=== PATIENT | female | born 1945 | race Caucasian/White ===

== ENCOUNTER 2016-07-11 18:56 | Emergency (ER) | payer OTHER ==
[~2016-07-11] VITALS: Ht 160 cm; Wt 79.0 kg
[2016-07-11 19:15] VITALS: TEMP 37; Ht 160 cm; Wt 79.0 kg
[2016-07-11] MEDS ORDERED: ESCI1TAB10 PO (19:26)
[2016-07-11] MEDS ORDERED: LEVO25TA PO (19:26)
[2016-07-11] MEDS ORDERED: ACET-1256 PO (19:26)
--- NOTE | 2016-07-11 19:54 | DIAGNOSTIC IMAGING REPORT ---
RIGHT ANKLE MIN 3 VIEWS ROUTINE CLINICAL HISTORY: Right ankle pain status post trauma COMPARISON: None. DISCUSSION: There is an avulsion fracture the lateral malleolar tip. An additional avulsion arising from the lateral aspect of the talus cannot be excluded. There is a corticated ossicle adjacent the medial malleolar tip which is felt to be old. There is prominent soft tissue swelling. The ankle mortise appears intact. There is calcaneal spurring. IMPRESSION: 1. Acute avulsion fracture arising from the lateral malleolar tip 2. Prominent soft tissue swelling 3. No evidence of ankle mortise disruption Electronically signed by: Lowell Carrillo M.D. 07/11/2016 7:53 PM Dictated Date/Time: 07/11/2016 7:51 PM
--- NOTE | 2016-07-11 19:55 | DIAGNOSTIC IMAGING REPORT ---
RIGHT TIBIA/FIBULA 2 VIEWS ROUTINE CLINICAL HISTORY: Right lower leg pain status post trauma COMPARISON: None. DISCUSSION: There is distal soft tissue swelling. There is an avulsion fracture arising from the lateral malleolar tip. There is an old corticated ossicle at the level of the medial malleolus. No fractures the proximal tibia or fibula are visualized. IMPRESSION: Avulsion fracture arising from the lateral malleolar tip. Electronically signed by: Lowell Carrillo M.D. 07/11/2016 7:54 PM Dictated Date/Time: 07/11/2016 7:53 PM
--- NOTE | 2016-07-11 20:23 | EMERGENCY ROOM VISIT NOTE ---
ED Visit Note First contact with patient: 19:21 Patient was seen by our PA/PROPERTY MAINTENANCE TECHNICIAN. I was involved in the patient's care and did evaluate the patient myself. I was involved in the care throughout the ER stay. The patient has a distal lateral malleolus fracture, she has been immobilized and will be followed up by orthopedics.
[2016-07-11 21:15] VITALS: BP 132/67; PULSE 60; O2SAT 98
--- NOTE | 2016-07-17 21:04 | EMERGENCY ROOM VISIT NOTE ---
ED Visit Note First contact with patient: 19:21 CHIEF COMPLAINT: Right ankle pain. HISTORY OF PRESENT ILLNESS: Ms. Iverson is a 70-year old white female who is brought via wheelchair into the ED accompanied by her daughter complaining of right ankle pain. She reports approximately 8 hours ago she was cleaning windows at home and she was reportedly standing on a ladder and partly standing on her washing machine. When she was transitioning back to the latter she lost her balance on the latter and fell off injuring her right lower leg and ankle. She reports at the time of the fall she did not strike her head or have loss of consciousness and since the fall she is not having any signs of head injury. She is currently complaining of constant achy and sharp pain over the distal aspect of the fibula. She rates the pain a 4/10. Pain is radiating proximally to the mid aspect of the fibula. Pain increases with weightbearing, ambulation, plantar flexion and inversion. She has not identified any alleviating factors related to the pain. She has not treated the pain prior to arrival at the hospital. She denies any associated hip pain, knee pain, leg weakness/numbness/ tingling, foot pain, toe pain, previous significant ankle or foot injury/ surgeries. REVIEW OF SYSTEMS: As noted above in History of Present Illness. PAST MEDICAL HISTORY: Hypothyroidism, status post cholecystectomy. CURRENT MEDICATIONS: Lexapro, Synthroid and Tylenol. ALLERGIES TO MEDICATIONS: Sulfa. SOCIAL HISTORY: Patient is not employed; she lives alone and feels safe in her home environment; she admits to tobacco use and denies alcohol use. PHYSICAL EXAM: Vital Signs: Date Time Temp Pulse Resp B/P Pulse Ox O2 Delivery O2 Flow Rate FiO2 07/11/16 21:15 60 132/67 98 07/11/16 19:15 37.0 57 18 107/66 96 Room Air General: 40 year old female in mild distress due to pain, nontoxic-appearing, afebrile and hemodynamically stable. Neurological: Awake, alert, oriented to person place and time. Answering questions appropriately and following commands. Skin: Warm dry and pink. No soft tissue injuries. Right Lower Extremity: No gross ana maria deformities. Mild tenderness over the mid tibial area without bony deformity, bony crepitus, swelling or ecchymosis. Moderate tenderness over the distal fibula and the ligamentous structures anterior, inferior and posterior to the lateral malleolus. Do not appreciate any bony deformity or crepitus. There is moderate swelling in this area but no ecchymosis. Full range of motion in plantar flexion and dorsiflexion of the ankle. Full range of motion in flexion and extension of the knee. No tenderness over the knee and hip. No appreciated laxity with ligamentous testing of the ankle. Throughout the foot the skin is pink and warm with brisk capillary refill. Able to distinguish light sensations through all dermatomes of the foot. ED COURSE: Patient is assessed as noted above. Right Ankle X-Rays: Were read by myself and the radiologist showing acute avulsion fracture arising from the lateral malleolus tip with soft tissue swelling. Right Lower Leg X-Rays: Were read by myself and the same fracture was noted but no proximal tibia or fibula fracture. Patient is given ice for pain, swelling and comfort; patient was offered medications and refused. Patient is placed in a Ortho-Glass ankle stirrup splint and is instructed on crutch use. Patient is educated about her condition and instructed on her treatment plan; she verbalizes understanding and agreement with the our plan. CLINICAL IMPRESSION: Right distal fibular avulsion fracture. DISPOSITION: Patient is discharged to home in stable condition accompanied by her daughter; prior to departure she was reassessed and subjectively reported she was pain-free. PLAN: Comfort measures were discussed with the pain Patient was encouraged to follow-up with orthopedic physician for definitive care and treatment. Patient was encouraged to return emergency department as needed for increasing pain, increasing swelling, leg weakness/numbness/tingling or any new/concerning symptoms.
== END 2016-07-11 21:16 | disposition home or self-care (01) ==
LOC: C.EDB 18:57 → C.EDD 21:16
DX: S82.61XA Displaced fracture of lateral malleolus of right fibula, initial encounter for closed fracture (principal); E03.9 Hypothyroidism, unspecified; F17.200 Nicotine dependence, unspecified, uncomplicated; Z79.899 Other long term (current) drug therapy; W11.XXXA Fall on and from ladder, initial encounter; Y93.E9 Activity, other interior property and clothing maintenance; Y92.009 Unspecified place in unspecified non-institutional (private) residence as the place of occurrence of the external cause; Y99.8 Other external cause status

== ENCOUNTER 2016-12-06 13:28 | Emergency (ER) | payer OTHER ==
[~2016-12-06] VITALS: Ht 160 cm; Wt 80.0 kg
[~2016-12-06 13:28] MED LIST: ACET-1256 PO; ESCI1TAB10 PO; LEVO25TA PO
[2016-12-06 13:30] VITALS: TEMP 36.6; Ht 160 cm; Wt 80.0 kg
--- NOTE | 2016-12-06 14:09 | EMERGENCY ROOM VISIT NOTE ---
History Report prepared by Miroslava: Simba Sanders Under the Supervision of: Dr. Martha Wylie D.O. First contact with patient: 13:51 Chief Complaint: ABDOMINAL PAIN Stated Complaint: LOWER ABDOMINAL PAIN History of Present Illness The patient is a 71 year old female who presents to the Emergency Room with complaints of intermittent lower abdominal pain that started yesterday morning. This pain is worse on the left side. Nothing makes it better or worse. Each episode of pain lasts about 20 seconds. The patient denies feeling a similar pain in the past. Associated symptoms include abdominal bloating. The patient denies recent travel, alcohol/ drug use, or medication changes. She also denies a past colonoscopy. The patient adds that her PCP was concerned for diverticulitis. She denies fevers, chills, nausea, vomiting, or any additional associated symptoms. Source of History: patient Onset: Yesterday morning Position: abdomen Timing: intermittent Modifying Factors (Worsening): other (None) Modifying Factors (Relieving): other (None) Associated Symptoms: No fevers, No chills, No nausea, No vomiting Note: Abdominal bloating Review of Systems See HPI for pertinent positives & negatives. A total of 10 systems reviewed and were otherwise negative. Past Medical & Surgical Surgical Problems: (1) Hx of cholecystectomy Family History FH: hypertension FH: seizures FH: suicide FHx: cancer Social History Smoking Status: Current Every Day Smoker Alcohol Use: none Drug Use: none Marital Status: single Housing Status: lives alone Occupation Status: retired Current/Historical Medications Scheduled Ciprofloxacin Hcl (Cipro), 500 MG PO BID Escitalopram Oxalate (Lexapro), 20 MG PO DAILY Levothyroxine Sodium (Synthroid), 25 MCG PO DAILY Metronidazole (Flagyl), 500 MG PO TID Promethazine (Phenergan ), 1-2 TABS PO TID Scheduled PRN Acetaminophen (Tylenol), 1 TAB PO Q8 PRN for Pain Allergies Coded Allergies: Sulfa Antibiotics (Verified Allergy, Unknown, UNKNOWN, 12/06/16) Physical Exam Vital Signs Date Time Temp Pulse Resp B/P (MAP) Pulse Ox O2 Delivery O2 Flow Rate FiO2 12/06/16 15:52 56 16 107/84 93 Room Air 12/06/16 14:45 52 16 141/70 96 Room Air 12/06/16 13:30 36.6 74 18 146/78 95 Room Air Physical Exam GENERAL: alert, well appearing, well nourished, no distress, non-toxic EYE EXAM: normal conjunctiva, PERRL and EOM's grossly intact OROPHARYNX: no exudate, no erythema, lips, buccal mucosa, and tongue normal and mucous membranes are moist NECK: supple, no nuchal rigidity, no adenopathy, non-tender LUNGS: Clear to auscultation. Normal chest wall mechanics HEART: no murmurs, S1 normal and S2 normal ABDOMEN: Left lower quadrant tenderness. Abdomen soft, normo-active bowel sounds , no masses, no rebound or guarding. BACK: Back is symmetrical on inspection and there is no deformity, no midline tenderness, no CVA tenderness. SKIN: no rashes and no bruising UPPER EXTREMITIES: upper extremities are grossly normal. LOWER EXTREMITIES: No pitting edema. NEURO EXAM: Normal sensorium, cranial nerves II-XII grossly intact, normal speech, no gross weakness of arms, no gross weakness of legs. No drift. Medical Decision & Procedures ER Provider Diagnostic Interpretation: Radiology results have been interpreted by the radiologist and reviewed by me. ABD/PELVIS NO IV OR ORAL CONT CT DOSE: 483.66 mGy.cm HISTORY: Pain ll. Pain TECHNIQUE: Multiaxial CT images of the abdomen and pelvis were performed without contrast. A dose lowering technique was utilized adhering to the principles of ALARA. COMPARISON STUDY: None. FINDINGS: Lung bases are clear. Liver spleen and pancreas are unremarkable in overall configuration. Prior cholecystectomy. Kidneys are negative for hydronephrosis or significant calcification. Mild nonobstructive small bowel ileus. Significant wall thickening of the proximal to mid sigmoid colon and to a lesser extent distal descending colon. Mild/moderate pericolonic infiltrative change. No evidence for abscess collection or obstruction. Bladder is midline. Small fat-containing bilateral inguinal hernias. IMPRESSION: 1. Acute sigmoid and distal descending colonic diverticulitis. 2. No evidence for abscess collection or obstructive change. 3. Moderate pericolonic infiltrative change. The above report was generated using voice recognition software. It may contain grammatical, syntax or spelling errors. Electronically signed by: Con Parry M.D. 12/06/2016 3:05 PM Dictated Date/Time: 12/06/2016 3:02 PM Laboratory Results 12/06/16 14:30 Red Blood Count 4.46, Mean Corpuscular Volume 92.4, Mean Corpuscular Hemoglobin 33.0, Mean Corpuscular Hemoglobin Concent 35.7, Mean Platelet Volume 9.7, Neutrophils (%) (Auto) 71.9, Lymphocytes (%) (Auto) 16.8, Monocytes (%) (Auto) 10.4, Eosinophils (%) (Auto) 0.4, Basophils (%) (Auto) 0.4, Neutrophils # (Auto ) 6.83, Lymphocytes # (Auto) 1.60, Monocytes # (Auto) 0.99, Eosinophils # (Auto ) 0.04, Basophils # (Auto) 0.04 12/06/16 14:30 Test 12/06/16 14:30 12/06/16 14:45 White Blood Count 9.51 K/uL (4.8-10.8) Red Blood Count 4.46 M/uL (4.2-5.4) Hemoglobin 14.7 g/dL (12.0-16.0) Hematocrit 41.2 % (37-47) Mean Corpuscular Volume 92.4 fL (80-100) Mean Corpuscular Hemoglobin 33.0 pg (25-34) Mean Corpuscular Hemoglobin Concent 35.7 g/dl (32-36) Platelet Count 207 K/uL (130-400) Mean Platelet Volume 9.7 fL (7.4-10.4) Neutrophils (%) (Auto) 71.9 % Lymphocytes (%) (Auto) 16.8 % Monocytes (%) (Auto) 10.4 % Eosinophils (%) (Auto) 0.4 % Basophils (%) (Auto) 0.4 % Neutrophils # (Auto) 6.83 K/uL (1.4-6.5) Lymphocytes # (Auto) 1.60 K/uL (1.2-3.4) Monocytes # (Auto) 0.99 K/uL (0.11-0.59) Eosinophils # (Auto) 0.04 K/uL (0-0.5) Basophils # (Auto) 0.04 K/uL (0-0.2) RDW Standard Deviation 45.5 fL (36.4-46.3) RDW Coefficient of Variation 13.4 % (11.5-14.5) Immature Granulocyte % (Auto) 0.1 % Immature Granulocyte # (Auto) 0.01 K/uL (0.00-0.02) Prothrombin Time 10.5 SECONDS (9.0-12.0) Prothromb Time International Ratio 1.0 (0.9-1.1) Anion Gap 5.0 mmol/L (3-11) Est Creatinine Clear Calc Drug Dose 80.7 ml/min Estimated GFR () 104.1 Estimated GFR (Non- 89.8 BUN/Creatinine Ratio 11.8 (10-20) Lactic Acid Level 1.1 mmol/L (0.4-2.0) Calcium Level 9.2 mg/dl (8.5-10.1) Total Bilirubin 0.7 mg/dl (0.2-1) Aspartate Amino Transf (AST/SGOT) 12 U/L (15-37) Alanine Aminotransferase (ALT/SGPT) 14 U/L (12-78) Alkaline Phosphatase 94 U/L (45-117) Total Protein 7.1 gm/dl (6.4-8.2) Albumin 3.5 gm/dl (3.4-5.0) Globulin 3.6 gm/dl (2.5-4.0) Albumin/Globulin Ratio 1.0 (0.9-2) Lipase 104 U/L (73-393) Urine Color YELLOW Urine Appearance CLEAR (CLEAR) Urine pH 5.5 (4.5-7.5) Urine Specific [place] 1.017 (1.000-1.030) Urine Protein NEG (NEG) Urine Glucose (UA) NEG (NEG) Urine Ketones 1+ (NEG) Urine Occult Blood 2+ (NEG) Urine Nitrite NEG (NEG) Urine Bilirubin NEG (NEG) Urine Urobilinogen NEG (NEG) Urine Leukocyte Esterase NEG (NEG) Urine WBC (Auto) 1-5 /hpf (0-5) Urine RBC (Auto) 0-4 /hpf (0-4) Urine Hyaline Casts (Auto) 0 /lpf (0-5) Urine Epithelial Cells (Auto) 20-30 /lpf (0-5) Urine Bacteria (Auto) NEG (NEG) Laboratory results per my review. Medications Administered Medications (Trade) Dose Ordered Sig/Ashley Route Start Time Stop Time Status Last Admin Dose Admin Ciprofloxacin (Cipro Tab) 500 mg NOW STAT PO 12/06/16 15:26 7/21/17 15:28 DC 12/06/16 15:52 500 MG Metronidazole (Flagyl Tab) 500 mg NOW STAT PO 12/06/16 15:26 12/06/16 15:28 DC 12/06/16 15:51 500 MG ED Course 1404: The patient was evaluated in room C3. A complete history and physical exam was performed. 1526: Ordered Flagyl Tablet 500 mg PO, Ciprofloxacin 500 mg. 1530: Upon reevaluation, the patient is feeling more comfortable. I discussed the findings and the treatment plan with the patient. She verbalizes agreement and understanding. She was discharged home. Medical Decision Differential diagnosis: Etiologies such as appendicitis, diverticulitis, PUD, biliary pathology, UTI, pancreatitis, obstruction, mesenteric ischemia, aortic pathology, infections, inflammatory bowel disease, renal colic, as well as others were entertained. Patient well-appearing here despite complaints. Labs reassuring, imaging shows acute diverticulitis without consultations. No evidence of perforation. Patient's vital signs stable, no evidence of bacteremia/sepsis. Doubt concurrent or vascular pathology. Patient agreeable with plan, discussed at bedside extensively need for follow-up with family doctor as well as GI, dietary changes, use of antibiotics, probiotics, hydration, pain control, symptoms to watch and return for, she verbalized understanding was agreeable with plan. Medication Reconcilliation Current Medication List: was personally reviewed by me Blood Pressure Screening Patient's blood pressure: Elevated blood pressure Blood pressure disposition: Elevated BP felt to be situational Impression Primary Impression: Left lower quadrant pain Additional Impression: Diverticulitis Scribe Attestation The scribe's documentation has been prepared under my direction and personally reviewed by me in its entirety. I confirm that the note above accurately reflects all work, treatment, procedures, and medical decision making performed by me. Departure Information Dispostion Home / Self-Care Prescriptions Promethazine (Phenergan ) 12.5 Mg Tab 1-2 TABS PO TID for Nausea, #10 TAB Prov: Martha Wylie, DO 12/06/16 Metronidazole (FLAGYL) 500 Mg Tab 500 MG PO TID, #21 TAB Prov: Martha Wylie, DO 12/06/16 Ciprofloxacin Hcl (CIPRO) 500 Mg Tab 500 MG PO BID, #14 TAB Prov: Martha Wylie, DO 12/06/16 Referrals No Doctor, Assigned (PCP) Forms HOME CARE DOCUMENTATION FORM, IMPORTANT VISIT INFORMATION Patient Instructions [facility] Additional Instructions Please follow up with your family doctor and also with GI. You should see your family doctor next week. The GI appointment can be scheduled several weeks from now. Please take the antibiotics as prescribed until they are completed. Please consider taking an [id number] probiotic while you're on antibiotics. Please drink plenty of water. He may use Tylenol and ibuprofen as needed for pain. If you have any worsening pain, develop blood with the bowel movement, develop fevers or chills, nausea or vomiting, or you have any other new or concerning symptoms, please return to the emergency room. Problem Qualifiers Additional Impression: Diverticulitis Diverticulitis site: large intestine Diverticulitis bleeding: without bleeding Diverticulitis complication: without perforation or abscess Qualified Codes: K57.32 - Diverticulitis of large intestine without perforation or abscess without bleeding
[2016-12-06 14:42] LABS: BASO % 0.4 %; BASO ABS # 0.04 K/uL (0-0.2); COMPLETE YES; EOS % 0.4 %; HEMATOCRIT 41.2 % (37-47); IG% 0.1 %; LYMPH % 16.8 %; MEAN CELL VOLUME 92.4 fL (80-100); MEAN CORPUSCULAR HGB CONC 35.7 g/dl (32-36); MEAN PLATELET VOLUME 9.7 fL (7.4-10.4); MONO % 10.4 %; NEUT % 71.9 %; PLATELET COUNT 207 K/uL (130-400); RED BLOOD COUNT 4.46 M/uL (4.2-5.4); WHITE BLOOD COUNT 9.51 K/uL (4.8-10.8)
[2016-12-06 14:50] LABS: PROTHROMBIN TIME (PATIENT) 10.5 SECONDS (9.0-12.0)
[2016-12-06 15:03] LABS: BUN/CREATININE RATIO 11.8 (10-20); CALCIUM 9.2 mg/dl (8.5-10.1); CREATININE 0.64 mg/dl (0.60-1.20); POTASSIUM 3.7 mmol/L (3.5-5.1)
--- NOTE | 2016-12-06 15:07 | DIAGNOSTIC IMAGING REPORT ---
ABD/PELVIS NO IV OR ORAL CONT CT DOSE: 483.66 mGy.cm HISTORY: Pain ll. Pain TECHNIQUE: Multiaxial CT images of the abdomen and pelvis were performed without contrast. A dose lowering technique was utilized adhering to the principles of ALARA. COMPARISON STUDY: None. FINDINGS: Lung bases are clear. Liver spleen and pancreas are unremarkable in overall configuration. Prior cholecystectomy. Kidneys are negative for hydronephrosis or significant calcification. Mild nonobstructive small bowel ileus. Significant wall thickening of the proximal to mid sigmoid colon and to a lesser extent distal descending colon. Mild/moderate pericolonic infiltrative change. No evidence for abscess collection or obstruction. Bladder is midline. Small fat-containing bilateral inguinal hernias. IMPRESSION: 1. Acute sigmoid and distal descending colonic diverticulitis. 2. No evidence for abscess collection or obstructive change. 3. Moderate pericolonic infiltrative change. The above report was generated using voice recognition software. It may contain grammatical, syntax or spelling errors. Electronically signed by: Con Parry M.D. 12/06/2016 3:05 PM Dictated Date/Time: 12/06/2016 3:02 PM
[2016-12-06 15:20] LABS: URINE APPEARANCE CLEAR (CLEAR); URINE BILIRUBIN NEG (NEG); URINE COLOR YELLOW; URINE EPITHELIAL CELL AUTO 20-30 /lpf (0-5); URINE NITRITE NEG (NEG); URINE PH 5.5 (4.5-7.5); URINE SPECIFIC GRAVITY 1.017 (1.000-1.030); UROBILINOGEN NEG (NEG); ZZUR CULT IF INDIC CLEAN CATCH NO
[2016-12-06 15:21] LABS: MANUAL MICROSCOPIC REQUIRED? NO; REVIEW REQ? NO
[2016-12-06] MEDS ORDERED: CIPROFLOXACIN 500 MG TAB PO STA (15:26)
[2016-12-06] MEDS ORDERED: METRONIDAZOLE 250 MG TAB PO STA (15:26)
[2016-12-06] MEDS ORDERED: CIPR-255 PO (15:32)
[2016-12-06] MEDS ORDERED: PROM12.57 PO (15:32)
[2016-12-06] MEDS ORDERED: METR500T PO (15:32)
[2016-12-06 15:52] VITALS: BP 107/84; PULSE 56; O2SAT 93
== END 2016-12-06 16:05 | disposition home or self-care (01) ==
LOC: C.EDB 13:29 → C.EDC 16:05
DX: R10.32 Left lower quadrant pain (principal); K57.32 Diverticulitis of large intestine without perforation or abscess without bleeding; F17.200 Nicotine dependence, unspecified, uncomplicated; Z82.49 Family history of ischemic heart disease and other diseases of the circulatory system

== ENCOUNTER 2019-05-22 11:04 | Inpatient (IN) ==
[2019-05-22 12:24] LABS: Appearance Urine Cloudy (Clear); Bacteria Urine Automated 1+ (Negative); Blood Urine Negative (Negative); Color Urine Dark Yellow; Epithelial Cell Urine Auto >30 /lpf (0-5); Glucose Urine UA Negative (Negative); Ketones Urine 2+ (Negative); Leukocyte Esterase Urine Negative (Negative); Nitrite Urine Negative (Negative); Protein Urine Negative (Negative); Specific Gravity Urine 1.022 (1.000-1.030); Urobilinogen Urine Negative (Negative); pH Urine 5.5 (4.5-7.5)
[2019-05-22 12:34] LABS: Bilirubin Urine Negative (Negative); Ictotest Urine Negative (Negative)
[2019-05-22] MEDS ORDERED: NICOTINE 21 MG/24 HR TDSY TD STA (12:34)
--- NOTE | 2019-05-22 12:34 | Emergency Department Note ---
Entered by Daniella Britt acting as a scribe for History of Present Illness General Chief complaint: Mental Health Evaluation Stated complaint: MENTAL HEALTH EVAL Time Seen by Provider: 05/22/19 11:58 Source: patient History of Present Illness Provider complaint: suicidal ideation Onset (ago): minute(s) (prior to arrival) Location: left and right Quality: + other (suicidal ideation ) Relieved By: not by medication (Prescribed depression) Associated symptoms: + other (Positive suicidal ideation; Negative self harm;) The patient, who is a 73 year old female with a medical history of depression, presents to the Emergency Room with request for a mental health evaluation due to worsening depression. The patient states that there are a multitude of situational factors that have impacted her depression. The patient expresses that over the past couple of years her and cat and her daughter got . The patient explains that her most recent stressor is her son's incarceration in a local [facility] and his suicidal attempt. The patient relays that this recent event has worsen her depression. The patient states that she has never tried to hurt herself. The patient admits to suicidal ideation. The patient's expresses that her suicidal plan is to overdose on pills. The patient admits that her family and herself have come to the conclusion that she needs to seek help. The patient reports taking medication for her depression and states that this treatment has not been successful. The patient states that her psychiatrist prescribed this medication. The patient reports that she saw her psychiatrist a month ago. The patient relays that she is sleeping fairly well. The patient states that she lacks an appetite but makes herself eat. The patient states that she a current smoker and informs that she may need a nicotine patch. Home Medications Home Medications Medication Instructions Recorded Confirmed Type levothyroxine [Synthroid] 50 mcg PO DAILY #0 tab 07/11/16 05/22/19 History lorazepam [Ativan] 0.5 mg PO BID PRN 05/22/19 05/22/19 History vortioxetine [Trintellix] 10 mg PO QPM 05/22/19 05/22/19 History Allergies Allergy/AdvReac Type Severity Reaction Status Date / Time Sulfa (Sulfonamide Allergy Unknown Rash Verified 05/22/19 12:46 Antibiotics) Past Med/Surg History Medical History Depression Social History Preferred Language: Slovak Communication Ability: Effective Maintenance Clerk Required: No Beliefs That Will Affect Care: None Feels Safe at Home: Yes Smoking Status: Current every day smoker Tobacco Type: cigarettes ; Review of Systems See HPI for pertinent positives & negatives. and A total of 10 systems reviewed and were otherwise negative Physical Exam Vital Signs Vital Signs - 24 hr 05/22/19 11:12 05/22/19 12:55 05/22/19 14:55 Temperature 36.3 C L Temperature Source Oral Pulse Rate 64 62 Pulse Rate [Radial] 61 Pulse Rhythm [Radial] Regular Respiratory Rate 20 18 18 Respiratory Effort / Characteristics Non-Labored Respiratory Depth Normal Respiratory Pattern Regular Blood Pressure 118/75 131/80 Blood Pressure [Left Arm] 133/65 Blood Pressure Mean 89 Blood Pressure Mean [Left Arm] 87 Pulse Oximetry 94 98 99 Oxygen Delivery Method Room Air Room Air Room Air Sepsis Recent Fever Within 48 Hours No Sepsis New/Unexplained Change in Mental Status No Sepsis Action Taken by Nursing No Action Required GENERAL: Patient is in no acute distress. HEENT: No acute trauma, normocephalic atraumatic, mucous membranes moist, no nasal congestion, no scleral icterus. NECK: No stridor, no adenopathy, no meningismus, trachea is midline. LUNGS: Clear to auscultation bilaterally, no wheeze, no rhonchi, breath sounds equal. HEART: Without murmurs gallops or rubs, regular rate and rhythm. ABDOMEN: Soft, nontender, bowel sounds positive, no hernias, no peritonitis. EXTREMITIES: No cyanosis or edema, full range of motion of all the joints without pain or difficulty, no signs for acute trauma. NEUROLOGIC: Oriented x 3, no acute motor or sensory deficits, no focal weakness. PSYCH: Doyle affect, cooperative and voluntary, at times tearful, admits to suicidal ideation with a plan to overdose. SKIN: No rash, no jaundice, no diaphoresis. Course Course 1202: Past medical records reviewed. The patient was evaluated in room A6. A complete history and physical exam was performed. 1452: Upon reevaluation, the patient is resting. I discussed findings and results with her. She verbalized agreement of the treatment plan. The patient will be admitted to [address] [place] [address]. Administered Medications Discontinued Medications Nicotine (Nicoderm Cq) 21 mg TD NOW STA Stop: 05/22/19 12:35 Last Admin: 05/22/19 13:00 Dose: 21 mg Documented by: [id number] Medical Decision Making Differential Diagnosis Differential diagnosis includes: suicidal ideation, electrolyte imbalance, thyroid disorder, drug and alcohol abuse, situational depression, psychosis, as well as others were entertained. Medical Records Attestation: I reviewed the patient's medical records. Home Medications Current Medication List: was personally reviewed by me Laboratory Data Attestation: I reviewed the patient's lab results. Result diagrams: 05/22/19 12:27 05/22/19 12:27 Lab Results 05/22/19 05/22/19 05/22/19 Range/Units 11:25 11:25 12:27 WBC 9.60 (4.8-10.8) K/uL RBC 4.56 (4.2-5.4) M/uL Hgb 15.0 (12.0-16.0) g/dL Hct 43.0 (37-47) % MCV 94.3 (80-100) fL MCH 32.9 (25-34) pg MCHC 34.9 (32-36) g/dL RDW Std Deviation 46.6 H (36.4-46.3) fL RDW Coeff of Donn 13.5 (11.5-14.5) % Plt Count 229 (130-400) K/uL MPV 9.7 (7.4-10.4) fL Immature Gran % (Auto) 0.2 % Neut % (Auto) 88.4 % Lymph % (Auto) 7.0 % [place] % (Auto) 4.0 % Eos % (Auto) 0.1 % Baso % (Auto) 0.3 % Immature Gran # (Auto) 0.02 (0.00-0.02) K/uL Neut # (Auto) 8.49 H (1.4-6.5) K/uL Lymph # (Auto) 0.67 L (1.2-3.4) K/uL [place] # (Auto) 0.38 (0.11-0.59) K/uL Eos # (Auto) 0.01 (0-0.5) K/uL Baso # (Auto) 0.03 (0-0.2) K/uL Sodium (136-145) mmol/L Potassium (3.5-5.1) mmol/L Chloride (98-107) mmol/L Carbon Dioxide (21-32) mmol/L Anion Gap (3-11) BUN (7-18) mg/dl Creatinine (0.6-1.2) mg/dl Est Cr Clr Drug Dosing ml/min Est GFR ( Amer) Est GFR (Non-Af Amer) BUN/Creatinine Ratio (10-20) Glucose (70-99) mg/dl Calcium (8.5-10.1) mg/dl Total Bilirubin (0.2-1) mg/dl AST (15-37) U/L ALT (12-78) U/L Alkaline Phosphatase (45-117) U/L Total Protein (6.4-8.2) gm/dl Albumin (3.4-5.0) gm/dl Globulin (2.5-4.0) gm/dl Albumin/Globulin Ratio (0.9-2) TSH (0.300-4.500) uIu/ml Free T4 (0.8-1.6) ng/dl Urine Color Dark Yellow Urine Appearance Cloudy A (Clear) Urine pH 5.5 (4.5-7.5) Ur Specific [place] 1.022 (1.000-1.030) Urine Protein Negative (Negative) Urine Glucose (UA) Negative (Negative) Urine Ketones 2+ H (Negative) Urine Blood Negative (Negative) Urine Nitrite Negative (Negative) Urine Bilirubin Negative (Negative) Urine Urobilinogen Negative (Negative) Ur Leukocyte Esterase Negative (Negative) Urine WBC (Auto) 5-10 H (0-5) /hpf Urine RBC (Auto) 0-4 (0-4) /hpf U Hyaline Cast (Auto) 1-5 (0-5) /lpf U Epithel Cells (Auto) >30 H (0-5) /lpf Urine Bacteria (Auto) 1+ H (Negative) Calcium Oxalate Crystal Present A (None Prsent) Urine Mucus Present A (None Prsent) Urine Yeast Not Reportable Salicylates (2.8-20) mg/dl Urine Opiates Screen Neg (Neg) Ur Methadone, Qual Neg (Neg) Acetaminophen (10-30) ug/ml Urine Barbiturates Neg (Neg) Ur Phencyclidine (PCP) Neg (Neg) U Amphetamin/Meth Scrn Neg (Neg) MDMA (Ecstasy) Screen Neg (Neg) U Benzodiazepines Scrn Neg (Neg) Ur Cocaine Metabolite Neg (Neg) U Marijuana (THC) Screen Neg (Neg) Ethyl Alcohol mg/dL (0-3) mg/dl 05/22/19 05/22/19 05/22/19 Range/Units 12:27 12:27 12:27 WBC (4.8-10.8) K/uL RBC (4.2-5.4) M/uL Hgb (12.0-16.0) g/dL Hct (37-47) % MCV (80-100) fL MCH (25-34) pg MCHC (32-36) g/dL RDW Std Deviation (36.4-46.3) fL RDW Coeff of Donn (11.5-14.5) % Plt Count (130-400) K/uL MPV (7.4-10.4) fL Immature Gran % (Auto) % Neut % (Auto) % Lymph % (Auto) % [place] % (Auto) % Eos % (Auto) % Baso % (Auto) % Immature Gran # (Auto) (0.00-0.02) K/uL Neut # (Auto) (1.4-6.5) K/uL Lymph # (Auto) (1.2-3.4) K/uL [place] # (Auto) (0.11-0.59) K/uL Eos # (Auto) (0-0.5) K/uL Baso # (Auto) (0-0.2) K/uL Sodium 135 L (136-145) mmol/L Potassium 4.2 (3.5-5.1) mmol/L Chloride 106 (98-107) mmol/L Carbon Dioxide 27 (21-32) mmol/L Anion Gap 2.0 L (3-11) BUN 7 (7-18) mg/dl Creatinine 0.70 (0.6-1.2) mg/dl Est Cr Clr Drug Dosing 69.2 ml/min Est GFR ( Amer) 99.6 Est GFR (Non-Af Amer) 86.0 BUN/Creatinine Ratio 10.3 (10-20) Glucose 102 H (70-99) mg/dl Calcium 9.2 (8.5-10.1) mg/dl Total Bilirubin 0.4 (0.2-1) mg/dl AST 15 (15-37) U/L ALT 17 (12-78) U/L Alkaline Phosphatase 78 (45-117) U/L Total Protein 7.0 (6.4-8.2) gm/dl Albumin 3.6 (3.4-5.0) gm/dl Globulin 3.4 (2.5-4.0) gm/dl Albumin/Globulin Ratio 1.1 (0.9-2) TSH 1.880 (0.300-4.500) uIu/ml Free T4 1.47 (0.8-1.6) ng/dl Urine Color Urine Appearance (Clear) Urine pH (4.5-7.5) Ur Specific [place] (1.000-1.030) Urine Protein (Negative) Urine Glucose (UA) (Negative) Urine Ketones (Negative) Urine Blood (Negative) Urine Nitrite (Negative) Urine Bilirubin (Negative) Urine Urobilinogen (Negative) Ur Leukocyte Esterase (Negative) Urine WBC (Auto) (0-5) /hpf Urine RBC (Auto) (0-4) /hpf U Hyaline Cast (Auto) (0-5) /lpf U Epithel Cells (Auto) (0-5) /lpf Urine Bacteria (Auto) (Negative) Calcium Oxalate Crystal (None Prsent) Urine Mucus (None Prsent) Urine Yeast Salicylates 4.7 (2.8-20) mg/dl Urine Opiates Screen (Neg) Ur Methadone, Qual (Neg) Acetaminophen < 2 L (10-30) ug/ml Urine Barbiturates (Neg) Ur Phencyclidine (PCP) (Neg) U Amphetamin/Meth Scrn (Neg) MDMA (Ecstasy) Screen (Neg) U Benzodiazepines Scrn (Neg) Ur Cocaine Metabolite (Neg) U Marijuana (THC) Screen (Neg) Ethyl Alcohol mg/dL < 3.0 (0-3) mg/dl Blood Pressure Blood Pressure Findings: Elevated blood pressure Blood Pressure Disposition: Referred to patients primary care provider MDM Narrative There is no leukocytosis or concerning anemia. No significant electrolyte abnormality or kidney failure. No liver enzyme elevation. The patient appears to be in a euthyroid state. Urinalysis shows some contamination, no infection. Urine tox was negative. Aspirin, Tylenol and alcohol levels were essentially undetectable. The patient presents with some suicidal ideation. She has a plan to overdose on pills. She is voluntary. She has been cooperative during her ED stay. The patient was felt medically clear. She was seen by psychiatry case management. [facility] Case management has been involved. The patient is aware of her findings. Impression & Plan Suicidal ideation, Depression Discharge Plan Visit Data *Final* Discharge Date/Time: 05/22/19 14:55 Chief Complaint: Mental Health Evaluation Stated Complaint: MENTAL HEALTH EVAL ED Provider: Adrián Garay Discharge Problem: Suicidal ideation, Depression Patient Disposition: Admitted As Inpatient Discharge Instructions Interventions: ED Discharge Assessment Last Done: 05/22/19 14:55 Discharge Problem: Depression Qualifiers: Depression Type: unspecified Qualified Code(s): F32.9 - Major depressive disorder, single episode, unspecified The scribe's documentation has been prepared under my direction and personally reviewed by me in its entirety. I confirm that the note above accurately reflects all work, treatment, procedures, and medical decision making performed by me.
[2019-05-22 12:35] LABS: Calcium Oxalate Crystals Urine Present (None Prsent); Mucus Urine Present (None Prsent)
[2019-05-22 12:36] LABS: RBC Urine Automated 0-4 /hpf (0-4)
[2019-05-22 12:41] LABS: Basophils # (auto) 0.03 K/uL (0-0.2); Basophils % (auto) 0.3 %; Eosinophils # (auto) 0.01 K/uL (0-0.5); Eosinophils % (auto) 0.1 %; Immature Granulocytes # (auto) 0.02 K/uL (0.00-0.02); Immature Granulocytes % (auto) 0.2 %; Lymphocytes # (auto) 0.67 K/uL (1.2-3.4); Mean Corpuscular Hemoglobin 32.9 pg (25-34); Mean Corpuscular Hgb Conc 34.9 g/dL (32-36); Mean Corpuscular Volume 94.3 fL (80-100); Mean Platelet Volume 9.7 fL (7.4-10.4); Monocytes # (auto) 0.38 K/uL (0.11-0.59); Neutrophils # (auto) 8.49 K/uL (1.4-6.5); Neutrophils % (auto) 88.4 %; Platelet Count 229 K/uL (130-400); RDW Coefficient of Variation 13.5 % (11.5-14.5); RDW Standard Deviation 46.6 fL (36.4-46.3); Red Blood Count 4.56 M/uL (4.2-5.4)
[2019-05-22 12:42] LABS: Amphetamines+Metham, Urine Neg (Neg); Barbiturates, Urine Neg (Neg); Benzodiazepine, Urine Neg (Neg); Cocaine, Urine Neg (Neg); MDMA (Ecstacy), Urine Neg (Neg); Methadone, Urine Neg (Neg); Opiate, Urine Neg (Neg); Phencyclidine, Urine Neg (Neg)
[2019-05-22 13:04] LABS: Acetaminophen < 2 ug/ml (10-30); Albumin Level 3.6 gm/dl (3.4-5.0); BUN Creatinine Ratio 10.3 (10-20); Calcium 9.2 mg/dl (8.5-10.1); Creatinine Clr Calc Pharmacy 69.2 ml/min; Est GFR (African American) 99.6; Potassium 4.2 mmol/L (3.5-5.1); Salicylate 4.7 mg/dl (2.8-20)
[2019-05-22 13:15] LABS: Albumin Globulin Ratio 1.1 (0.9-2); Bilirubin,Total 0.4 mg/dl (0.2-1); Globulin 3.4 gm/dl (2.5-4.0); T4 Free Thyroxine 1.47 ng/dl (0.8-1.6); Thyroid Stimulating Hormone 1.88 uIu/ml (0.300-4.500)
[2019-05-22] MEDS ORDERED: ACETAMINOPHEN 325 MG TAB PO PRN (14:22)
[2019-05-22] MEDS ORDERED: ALUMINUM/MAGNESIUM SUSP 30 ML UDC PO PRN (14:22)
[2019-05-22] MEDS ORDERED: BISMUTH SUBSALICYLATE PER ML OMNICELL CHARGE PO PRN (14:22)
[2019-05-22] MEDS ORDERED: SODIUM CHLORIDE 0.65% NA SOLN 45 ML (OCEAN) PRN (14:22)
[2019-05-22] MEDS: LORazepam 0.5 MG TAB PO PRN (20:28)
[2019-05-23] MEDS ORDERED: INFLUENZA Vaccine HIGH DOSE 65+yrs 0.5 mL Syr IM ONE (04:15)
[2019-05-23] MEDS: LEVOTHYROXINE SODIUM 50 MCG TABLET PO SCH (09:15)
[2019-05-23] MEDS: NICOTINE 21 MG/24 HR TDSY TD SCH (09:27)
[2019-05-23] MEDS: LORazepam 0.5 MG TAB PO PRN ×2 (10:41→19:48)
--- NOTE | 2019-05-23 13:47 | History & Physical ---
Date of Service May 23, 2019 Impression / Recommendations Impression 73 yo female with a family history of suicide and prior hospitalizations for SI, presents with vegetative symptoms, worsening mood and SI in the context of failed Trintellix trial. Hallucinations seems related to medication side effect as no current evidence of psychotic features or history of bipolarity. (1) Major depression, melancholic type: The patient was admitted to the [facility] ([facility]) on q15 min checks (behavioral with suicide precautions) for safety. The patient will participate in group, recreational, and milieu therapies and will be offered additional individual and family sessions as clinically appropriate. Risks/benefits/alternatives reviewed re: restart of Lexapro. Patient agrees. Risks/benefits/alternatives reviewed re: Ativan. She states was taking 0.5 mg up to Bid recently but generally only occasional prn. She is aware can be fall risk in patients over 65 and plan to decrease reliance as Lexapro become effective again. Inventory Assets Strengths: well spoken, compliant with care recs, supportive daughter Needs: retrial of antidepressant, safety plan, more structured activities Risk Factors Assessment Male: No : Yes Do You Have Access To A Gun?: No Mental Health Diagnoses: Yes Substance Use Disorders: No Previous Attempt: No Previous Psychiatric Hospitalization: Yes Protective Factors Assessment Responsible for Young Children: No Employed: No Supportive Family: Yes Good Rapport with Provider: Yes Psychiatric History Identifying Data LANDON CAICEDO is a 73-year-old F who currently lives in alone in [facility], has a history of depression managed on lexapro for years until recent med change, and was admitted on 05/22/19 15:25 on a 201 voluntary commitment for SI. Chief Complaint "I want to live I just can't function like this". History of Present Illness Progressive decline over past few years due to multiple losses/worries. 3 years ago, her daughter got , and her son went to halfway last year for an extended sentence. He has had 1 suicide attempt while incarcerated and she fears she will get a call that he has reattempted. She is rather isolated in her place, particularly as winter and doesn't feel she has the energy or motivation to do much. She is lonely after putting down her 2 cats and things "only got worse" following switch from lexapro to Trintellix trial about 10 weeks ago. She feels her mood dropped lower with the recurrence of SI and she also experienced visual hale of black figures hovering over her at night as well as "sparklies" like glitter around her tv screen. This resolved when the dose was decreased to 10 mg of Trintellix a few weeks ago and Trintellix was held on admission. She states that when more depressed she ruminates about the cost of things and feels guilty like she should be punished for an that she had at the age of 27 yo. Overall her appetite has been down, sleep is OK with only occasional MOE. Past Psychiatric History Current Psychiatric Diagnosis: MDD Outpatient Services: [place] at [facility] Previous Psych Admissions: 1.5 years ago at the [facility], "a few times" in the s. Do You Have Access To A Gun?: No History of Previous Suicide Attempt: No Describe Attempts in the Past: Denies Past Medication Trials: multiple--able to list Prozac, Zoloft, Celexa, Buspar (N), Wellbutrin, Trintellix (hael), Lexapro (effective until recently) Past Head Trauma/Neuro History History of Concussion/Seizure: No Allergies Allergy/AdvReac Type Severity Reaction Status Date / Time Sulfa (Sulfonamide Allergy Unknown Rash Verified 05/22/19 12:46 Antibiotics) Home Medications Home Medications Medication Instructions Recorded Confirmed Type levothyroxine [Synthroid] 50 mcg PO DAILY #0 tab 07/11/16 05/22/19 History lorazepam [Ativan] 0.5 mg PO BID PRN 05/22/19 05/22/19 History vortioxetine [Trintellix] 10 mg PO QPM 05/22/19 05/22/19 History Family History Family History of: Depression, Suicide Attempts and Suicide Completion Family Mental Health History Comment: Father completed suicide when patient was 30 years old. Son had suicide attempt recently while incarcerated Alcohol History Hx of Alcohol Use Over the Past 12 Months: No AUDIT Total Score: 0 Smoking Use Have You Smoked or Used Tobacco Products in the Last 30 Days: Yes tobacco type: cigarettes Smoking Status: Current every day smoker Smoking packs per day: 1 Substance History Hx of Prescription Med Misuse Over the Past 12 Months: No Hx of Over the Counter Med Misuse Over the Past 12 Months: No Hx of Inhalent Misuse Over the Past 12 Months: No Hx of Organic Substance Use Over the Past 12 Months: No Hx of Illegal Substances/Street Drug Use Over Past 12 Months: No Problems as a Result of Past Substance Use: None Identified Personal History Living Arrangements: Home Living Arrangements Comments: lives alone in own home Highest Grade Completed: High School Graduate Marital Status: Number Of Children: 2 Beliefs That Will Affect Care: None Current Legal Problems: No Hx Legal Problems: No Hx Traumatic Life Events: Yes Psychological Trauma History Comment: age 27, believes it was "best decision at time" but also regrets Patient History Medical History Depression Social History Preferred Language: Indonesian Communication Ability: Effective Medical Radiation Therapist Required: No Beliefs That Will Affect Care: None Feels Safe at Home: Yes Smoking Status: Current every day smoker Tobacco Type: cigarettes ; Review of Systems Review of Systems: All systems reviewed & are unremarkable except as noted in HPI & below Physical Exam Psychiatric: Orientation: alert and oriented x 3 Apperance: appropriately dressed Eye Contact: good eye contact Motor Behavior: no abnormal motor movements Speech: normal rate/rhythm/volume of speech Affect: + depressed affect Mood: + depressed mood Thought Process: linear/logical thought process Thought Content: + preoccupation, + cognitive distortions and + self deprecation passive wish, denies intent or plan on unit Homicidal Thoughts: denies homicidal thoughts Hallucinations: no auditory hallucinations and no visual hallucinations Cognition: recent memory grossly intact Estimated Intelligence: average estimated intelligence Insight: + fair insight Judgement: + fair judgement Vital Signs (Past 24 Hours): Last Vital Signs Temp 37 C 05/23/19 06:46 Pulse 65 05/23/19 06:46 Resp 18 05/23/19 06:46 BP 112/70 05/23/19 06:46 Pulse Ox 99 05/22/19 14:55 Physical Examination: A physical exam was performed in the ED by Dr. Garay for the purposes of medical clearance. I accept that physical as correct and adequate for the purposes of the inpatient physical exam. Results & Data Current Inpatient Medications Current Inpatient Medications: Current Inpatient Medications Acetaminophen (Tylenol) 650 mg PO Q4H PRN PRN Reason: Headache or Minor Fever Stop: 06/21/19 14:21 Al Hydrox/Mg Hydrox/Simethicone (Maalox) 30 ml PO Q4H PRN PRN Reason: GI Upset Stop: 06/21/19 14:21 Bismuth Subsalicylate (Kaopectate) 15 ml PO PRN PRN PRN Reason: Loose Stool Stop: 06/21/19 14:21 Escitalopram Oxalate (Lexapro Tab) 10 mg PO HS [facility] Stop: 06/22/19 21:59 Levothyroxine Sodium (Synthroid) 50 mcg PO DAILYBB [facility] Stop: 06/22/19 06:29 Last Admin: 05/23/19 09:15 Dose: 50 mcg Documented by: Lorazepam (Ativan) 0.5 mg PO BID PRN PRN Reason: Anxiety Stop: 06/21/19 14:24 Last Admin: 05/23/19 10:41 Dose: 0.5 mg Documented by: Magnesium Hydroxide (Milk Of Magnesia) 30 ml PO DAILY PRN PRN Reason: Constipation Stop: 06/21/19 14:21 Miscellaneous (Remove Nicoderm Patch) 1 ea N/A [id number] [facility] Stop: 06/22/19 08:58 Last Admin: 05/23/19 09:27 Dose: 1 ea Documented by: Nicotine (Nicoderm Cq) 21 mg TD QAM [facility] Stop: 06/22/19 08:59 Last Admin: 05/23/19 09:27 Dose: 21 mg Documented by: Sodium Chloride ([place] Nasal) 1 - 2 sprays NA PRN PRN PRN Reason: Nasal Dryness/Congestion Stop: 06/21/19 14:21
[2019-05-23] MEDS ORDERED: ESCITALOPRAM OXALATE 10 MG TAB PO SCH (22:00)
[2019-05-24] MEDS: LEVOTHYROXINE SODIUM 50 MCG TABLET PO SCH (09:31)
[2019-05-24] MEDS: NICOTINE 21 MG/24 HR TDSY TD SCH (09:31)
[2019-05-24] MEDS: LORazepam 0.5 MG TAB PO PRN ×2 (09:34→19:52)
[2019-05-24] MEDS: MAGNESIUM HYDROXIDE SUSP 30 ML UDC PO PRN (10:44)
--- NOTE | 2019-05-24 10:55 | Psychiatric Progress Note ---
Date of Service May 24, 2019 Impression / Recommendations Impression 73 yo female with a family history of suicide and prior hospitalizations for SI, presents with vegetative symptoms, worsening mood and SI in the context of failed Trintellix trial. Hallucinations seems related to medication side effect as no current evidence of psychotic features or history of bipolarity. Ongoing ruminations interfere with ability to function and safety plan outside of the hospital so inpatient care remains least restrictive setting. (1) Major depression, melancholic type: 05/23--The patient was admitted to the [facility] ([facility] health unit) on q15 min checks (behavioral with suicide precautions) for safety. The patient will participate in group, recreational, and milieu therapies and will be offered additional individual and family sessions as clinically appropriate. Risks/benefits/alternatives reviewed re: restart of Lexapro. Patient agrees. Risks/benefits/alternatives reviewed re: Ativan. She states was taking 0.5 mg up to Bid recently but generally only occasional prn. She is aware can be fall risk in patients over 65 and plan to decrease reliance as Lexapro become effective again 05/24--titrate Lexapro to 20 mg this hs. Inventory Assets Strengths: well spoken, compliant with care recs, supportive daughter Needs: retrial of antidepressant, safety plan, more structured activities Risk Factors Assessment Male: No : Yes Do You Have Access To A Gun?: No Mental Health Diagnoses: Yes Substance Use Disorders: No Previous Attempt: No Previous Psychiatric Hospitalization: Yes Protective Factors Assessment Responsible for Young Children: No Employed: No Supportive Family: Yes Good Rapport with Provider: Yes Interval History Chief Complaint "I feel worse today". Review of Systems Sleep Information Total Hours of Sleep: 6.5 Meal Information Percent Meal Consumed - Breakfast: 90 Percent Meal Consumed - Lunch: 90 Percent Meal Consumed - Dinner: 100 Nutrition Comment: per meal record Subjective Subjective Patient was seen & assessed and interval progress reviewed with treatment team. positive meeting with daughter as able to discuss ruminations re: son and past . Denies issues overnight per se but more anxious this am, likely nicotine withdrawal as patch needs replaced. She declines gum. Continues to ask repeated questions about whether or not she'll get better on retrial of Lexapro. Physical Exam Psychiatric Orientation: alert and oriented x 3 Apperance: appropriately dressed Eye Contact: good eye contact Motor Behavior: no abnormal motor movements Speech: normal rate/rhythm/volume of speech Affect: + depressed affect Mood: + depressed mood Thought Process: linear/logical thought process Thought Content: + preoccupation, + cognitive distortions and + self deprecation Homicidal Thoughts: denies homicidal thoughts Hallucinations: no auditory hallucinations and no visual hallucinations Cognition: recent memory grossly intact Estimated Intelligence: average estimated intelligence Insight: + fair insight Judgement: + fair judgement Vital Signs (Past 24 Hours) Last Vital Signs Temp 36.6 C 05/24/19 06:56 Pulse 62 05/24/19 06:57 Resp 18 05/24/19 06:56 BP 109/72 05/24/19 06:57 Pulse Ox 99 05/22/19 14:55 Results & Data Current Inpatient Medications Current Inpatient Medications: Current Inpatient Medications Acetaminophen (Tylenol) 650 mg PO Q4H PRN PRN Reason: Headache or Minor Fever Stop: 06/21/19 14:21 Al Hydrox/Mg Hydrox/Simethicone (Maalox) 30 ml PO Q4H PRN PRN Reason: GI Upset Stop: 06/21/19 14:21 Bismuth Subsalicylate (Kaopectate) 15 ml PO PRN PRN PRN Reason: Loose Stool Stop: 06/21/19 14:21 Escitalopram Oxalate (Lexapro Tab) 20 mg PO HS [facility] Stop: 06/23/19 21:59 Levothyroxine Sodium (Synthroid) 50 mcg PO DAILYBB [facility] Stop: 06/22/19 06:29 Last Admin: 05/24/19 09:31 Dose: 50 mcg Documented by: Lorazepam (Ativan) 0.5 mg PO BID PRN PRN Reason: Anxiety Stop: 06/21/19 14:24 Last Admin: 05/24/19 09:34 Dose: 0.5 mg Documented by: Magnesium Hydroxide (Milk Of Magnesia) 30 ml PO DAILY PRN PRN Reason: Constipation Stop: 06/21/19 14:21 Last Admin: 05/24/19 10:44 Dose: 30 ml Documented by: Miscellaneous (Remove Nicoderm Patch) 1 ea N/A DAILY@0859 [facility] Stop: 06/22/19 08:58 Last Admin: 05/24/19 09:34 Dose: 1 ea Documented by: Nicotine (Nicoderm Cq) 21 mg TD QAM [facility] Stop: 06/22/19 08:59 Last Admin: 05/24/19 09:31 Dose: 21 mg Documented by: Sodium Chloride ([place] Nasal) 1 - 2 sprays NA PRN PRN PRN Reason: Nasal Dryness/Congestion Stop: 06/21/19 14:21 Mental Health & Subst Abuse Tx Psychiatrist Date of Appointment with Psychiatrist: 06/22/19 Post Discharge Appointments Primary Care Physician Name Of Family Doctor: Dr. Warren @[facility] Date of Appointment with PCP: 06/15/19
[2019-05-24] MEDS: ESCITALOPRAM OXALATE 20 MG TAB PO SCH (21:22)
[2019-05-25] MEDS: LEVOTHYROXINE SODIUM 50 MCG TABLET PO SCH (08:19)
[2019-05-25] MEDS: NICOTINE 21 MG/24 HR TDSY TD SCH (08:20)
[2019-05-25] MEDS: LORazepam 0.5 MG TAB PO PRN ×2 (10:32→19:44)
--- NOTE | 2019-05-25 13:57 | Psychiatric Progress Note ---
Date of Service May 25, 2019 Impression / Recommendations Impression 73 yo female with a family history of suicide and prior hospitalizations for SI, presents with vegetative symptoms, worsening mood and SI in the context of failed Trintellix trial. Hallucinations seems related to medication side effect as no current evidence of psychotic features or history of bipolarity. Living situation after discharge and referrals for outpatient therapy are ongoing considerations. Ongoing ruminations interfere with ability to function and safety plan outside of the hospital so inpatient care remains least restrictive setting. (1) Major depression, melancholic type: 05/23--The patient was admitted to the [facility] ([facility] unit) on q15 min checks (behavioral with suicide precautions) for safety. The patient will participate in group, recreational, and milieu therapies and will be offered additional individual and family sessions as clinically appropriate. Risks/benefits/alternatives reviewed re: restart of Lexapro. Dionte james agrees. Risks/benefits/alternatives reviewed re: Ativan. She states was taking 0.5 mg up to Bid recently but generally only occasional prn. She is aware can be fall risk in patients over 65 and plan to decrease reliance as Lexapro become effective again 05/24--titrate Lexapro to 20 mg this hs. 05/25 - Continue escitalopram 20mg qHS - Pt reporting only mild improvement in mood, ongoing SI. Remains unable to reliably contract for safety outside of the inpatient setting - Pt considering staying with her sister and [id number] after discharge, but feels as though she will be "a burden" - Pt verbalized she is agreeable with outpatient therapy referral Inventory Assets Strengths: well spoken, compliant with care recs, supportive daughter Needs: retrial of antidepressant, safety plan, more structured activities Risk Factors Assessment Male: No : Yes Do You Have Access To A Gun?: No Mental Health Diagnoses: Yes Substance Use Disorders: No Previous Attempt: No Previous Psychiatric Hospitalization: Yes Protective Factors Assessment Responsible for Young Children: No Employed: No Supportive Family: Yes Good Rapport with Provider: Yes Interval History Identifying Information LANDON CAICEDO is a 73-year-old F who currently lives in alone in [facility], has a history of depression managed on Lexapro for years until recent med change, and was admitted on 05/22/19 15:25 on a 201 voluntary commitment for SI. Chief Complaint "I'm feeling more down today. I don't know why." Review of Systems Notes Constitutional: denied Cardiovascular: denied Respiratory: denied Gastrointestinal: denied Neurological: denied Psychiatric: denies symptoms other than stated above Total of at least 10 systems reviewed, pertinent positives as above and in HPI. Sleep Information Total Hours of Sleep: 6.5 Sleep Comments: pt on q-15 minute checks Meal Information Percent Meal Consumed - Breakfast: 100 Percent Meal Consumed - Lunch: 100 Percent Meal Consumed - Dinner: 50 Nutrition Comment: per meal record Subjective Subjective Patient was seen & assessed and interval progress reviewed with nursing and social work. Staff report the patient continues to demonstrate depressed and tearful affect. It is reported that she appeared more hopeful last evening. Patient has been participating in group and recreational programming. She is seen today to assess progress since admission. Patient was seen shortly after finishing a phone call with her sister. She verbalized willingness to have an observer during our evaluation, Gwendolyn Johnson PA-C who is onboarding in our department. Patient informs this provider that she feels as though her current depression has been an accumulation of stressors over the past 3 years. She reports significant depressive symptoms for the last year and a half, with suicidal ideation more recently. Patient reports ongoing suicidal ideation, though admits it has "lightened a little." She states "when I get depressed like this, I get obsessive thoughts that do not leave my head." She continues to verbalize intrusive thoughts related to her being "a bad person" for having an at the age of 27. She states that in her "right mind" she is able to easily justify this decision, stating "I know at the time it was the right decision. It was what I needed to do." She states that she is unsure why this reasoning is not effective when her mood is lower. She states that she has been encouraged by her family to consider staying with her sister after discharge. Patient states "being told I should do that makes me feel like people think I am not going to get better." Patient states that she feels as though she is "a burden", which is also the reason she is feeling she would not want to take her sister up on this offer. Patient was encouraged to consider that her family likely would not offer this option if they truly felt that way, and we discussed ways to recognize and fight against cognitive distortions. Patient does admit that if the roles were reversed, she would have no problem welcoming her sister into her home. We also reviewed the potential benefits of surrounding herself with additional support, especially right after discharge from the hospital. Pt admitted she would consider the offer further. She denies side effects related to titration of escitalopram last evening. She verbalizes a willingness for an outpatient therapy referral, though does admit, "I'm not sure what good it will do." We discussed ways in which therapy, especially in combination with effective medications, could be helpful for the patient. She denies other specific needs or concerns at this time. Physical Exam Psychiatric Orientation: alert, oriented x 3 and cooperative Apperance: appropriately dressed, appropriately groomed and appeared stated age Eye Contact: good eye contact Motor Behavior: steady gait and station and no abnormal motor movements Speech: normal rate/rhythm/volume of speech Affect: + depressed affect, + tearful affect and mood congruent with affect Mood: + depressed mood ("More down today" and "I just feel like I'm a bad person") Thought Process: goal directed thought process, clear/coherent thought process and thought association intact Thought Content: + preoccupation (with ruminative thoughts related to history of ), + cognitive distortions (regarding feeling as though she will be a burden on family), reality based without delusions and + hopelessness Suicidal Thoughts: denies suicidal intent (but feels unable to convincingly contract for safety outside of hospital); + reports suicidal thoughts Homicidal Thoughts: denies homicidal thoughts Hallucinations: no auditory hallucinations and no visual hallucinations Cognition: attention grossly intact and language grossly intact Insight: + fair insight Judgement: + fair judgement Vital Signs (Past 24 Hours) Last Vital Signs Temp 36.4 C L 05/25/19 06:52 Pulse 61 05/25/19 06:53 Resp 18 05/25/19 06:52 BP 111/72 05/25/19 06:53 Pulse Ox 99 05/22/19 14:55 . Results & Data Current Inpatient Medications Current Inpatient Medications: Current Inpatient Medications Acetaminophen (Tylenol) 650 mg PO Q4H PRN PRN Reason: Headache or Minor Fever Stop: 06/21/19 14:21 Al Hydrox/Mg Hydrox/Simethicone (Maalox) 30 ml PO Q4H PRN PRN Reason: GI Upset Stop: 06/21/19 14:21 Bismuth Subsalicylate (Kaopectate) 15 ml PO PRN PRN PRN Reason: Loose Stool Stop: 06/21/19 14:21 Escitalopram Oxalate (Lexapro Tab) 20 mg PO HS [facility] Stop: 06/23/19 21:59 Last Admin: 05/24/19 21:22 Dose: 20 mg Documented by: Levothyroxine Sodium (Synthroid) 50 mcg PO DAILYBB [facility] Stop: 06/22/19 06:29 Last Admin: 05/25/19 08:19 Dose: 50 mcg Documented by: Lorazepam (Ativan) 0.5 mg PO BID PRN PRN Reason: Anxiety Stop: 06/21/19 14:24 Last Admin: 05/25/19 10:32 Dose: 0.5 mg Documented by: Magnesium Hydroxide (Milk Of Magnesia) 30 ml PO DAILY PRN PRN Reason: Constipation Stop: 06/21/19 14:21 Last Admin: 05/24/19 10:44 Dose: 30 ml Documented by: Miscellaneous (Remove Nicoderm Patch) 1 ea N/A DAILY@0859 [facility] Stop: 06/22/19 08:58 Last Admin: 05/25/19 08:20 Dose: 1 ea Documented by: Nicotine (Nicoderm Cq) 21 mg TD QAM [facility] Stop: 06/22/19 08:59 Last Admin: 05/25/19 08:20 Dose: 21 mg Documented by: Sodium Chloride ([place] Nasal) 1 - 2 sprays NA PRN PRN PRN Reason: Nasal Dryness/Congestion Stop: 06/21/19 14:21 Mental Health & Subst Abuse Tx Psychiatrist Name of Psychiatrist: Dr. Gordon [facility] Psychiatrist's Phone Number: 11:30am Date of Appointment with Psychiatrist: 06/22/19 Post Discharge Appointments Primary Care Physician Name Of Family Doctor: Dr. Warren @[facility] Date of Appointment with PCP: 06/15/19 Time of Appointment with PCP: 10:05am Contact Information Discharge Discharge Address: [address] [place] [address]
[2019-05-25] MEDS: ESCITALOPRAM OXALATE 20 MG TAB PO SCH (20:42)
[2019-05-26] MEDS: LEVOTHYROXINE SODIUM 50 MCG TABLET PO SCH (08:43)
[2019-05-26] MEDS: NICOTINE 21 MG/24 HR TDSY TD SCH (08:46)
[2019-05-26] MEDS: LORazepam 0.5 MG TAB PO PRN ×2 (10:13→19:46)
--- NOTE | 2019-05-26 10:38 | Psychiatric Progress Note ---
Date of Service May 26, 2019 Impression / Recommendations Impression 73 yo female with a family history of suicide and prior hospitalizations for SI, presents with vegetative symptoms, worsening mood and SI in the context of failed Trintellix trial. Hallucinations seems related to medication side effect as no current evidence of psychotic features or history of bipolarity. Living situation after discharge and referrals for outpatient therapy are ongoing considerations. Ongoing ruminations interfere with ability to function and safety plan outside of the hospital so inpatient care remains least restrictive setting. (1) Major depression, melancholic type: 05/23--The patient was admitted to the [facility] ([facility] health unit) on q15 min checks (behavioral with suicide precautions) for safety. The patient will participate in group, recreational, and milieu therapies and will be offered additional individual and family sessions as clinically appropriate. Risks/benefits/alternatives reviewed re: restart of Lexapro. Dionte james agrees. Risks/benefits/alternatives reviewed re: Ativan. She states was taking 0.5 mg up to Bid recently but generally only occasional prn. She is aware can be fall risk in patients over 65 and plan to decrease reliance as Lexapro become effective again 05/24--titrate Lexapro to 20 mg this hs. 05/25 - Continue escitalopram 20mg qHS - Pt reporting only mild improvement in mood, ongoing SI. Remains unable to reliably contract for safety outside of the inpatient setting - Pt considering staying with her sister and [id number] after discharge, but feels as though she will be "a burden" - Pt verbalized she is agreeable with outpatient therapy referral 05/26 - Continue treatment plan as above - SI ongoing, though reportedly improved in frequency and severity - Remains unable to confidently contract for safety outside of inpatient hospital setting - Continue discussion regarding living arrangements after discharge Inventory Assets Strengths: well spoken, compliant with care recs, supportive daughter Needs: retrial of antidepressant, safety plan, more structured activities Risk Factors Assessment Male: No : Yes Do You Have Access To A Gun?: No Mental Health Diagnoses: Yes Substance Use Disorders: No Previous Attempt: No Previous Psychiatric Hospitalization: Yes Protective Factors Assessment Responsible for Young Children: No Employed: No Supportive Family: Yes Good Rapport with Provider: Yes Interval History Identifying Information LANDON CAICEDO is a 73-year-old F who currently lives in alone in [facility], has a history of depression managed on Lexapro for years until recent med change, and was admitted on 05/22/19 15:25 on a 201 voluntary commitment for SI. Chief Complaint "Eh, so-so." Review of Systems Notes Constitutional: denied Cardiovascular: denied Respiratory: denied Gastrointestinal: denied Neurological: denied Psychiatric: denies symptoms other than stated above Total of at least 10 systems reviewed, pertinent positives as above and in HPI. Sleep Information Total Hours of Sleep: 7 Sleep Comments: pt on q-15 minute checks Meal Information Percent Meal Consumed - Breakfast: 50 Percent Meal Consumed - Lunch: 100 Percent Meal Consumed - Dinner: 100 Nutrition Comment: Pt states that she "doesn't usually eat breakfast." Subjective Subjective Patient was seen & assessed and interval progress reviewed with treatment team. Staff report the patient rated her mood a 7/10 and "hopeful" last evening. Interestingly, her affect continues to be rather depressed. Patient does continue to have communication with daughter and sister regarding discharge planning. Patient was seen today to assess progress since admission. Patient gives verbal permission for Gwendolyn Johnson PA-C to observe encounter today. Patient states that today she is feeling "so-so." She begins conversation by stating that she is "scared to go home." When asked what patient feels is underneath that fear, she states "the idea of being alone, sometimes it is a good thing for me but lately it has not been." Patient continues to consider the offer to move in with her sister and [id number] after discharge. She continues to state that her biggest concern is believing she is unwelcome. Patient states "I have this bad habit of thinking that I'm bothering people." We continue to discuss cognitive distortions that lead to these assumptions. Patient continues to states she has not yet made a decision on where she will be living after discharge. Patient does admit to continued suicidal ideation, though states the thoughts are somewhat less severe and "not as heavy." Patient states that here on the unit she has been able to distract herself from suicidal thoughts; however, she is not as competent she would be able to do this without support of staff and peers. Patient continues to tolerate titrated dose of escitalopram. She reports that sleep and appetite continue to be average for her. Patient denies other needs or concerns at this time. Physical Exam Psychiatric Orientation: alert, oriented x 3 and cooperative (Pleasant and polite) Apperance: appropriately dressed (Using a blanket to cover shoulders), appropriately groomed and appeared stated age Eye Contact: good eye contact Motor Behavior: steady gait and station and no abnormal motor movements Speech: normal rate/rhythm/volume of speech Affect: + depressed affect (But appearing mildly brighter today) and mood congruent with affect; no tearful affect Mood: + depressed mood ("Eh, so-so") Thought Process: goal directed thought process, clear/coherent thought process and thought association intact Thought Content: + cognitive distortions (related to feeling she is a "burden" on supports), reality based without delusions and + hopelessness (intermittent thoughts are ongoing ) Suicidal Thoughts: denies suicidal intent; + reports suicidal thoughts (reduced in frequency and severity, but ongoing at this time) Homicidal Thoughts: denies homicidal thoughts Hallucinations: no auditory hallucinations and no visual hallucinations Cognition: remote memory grossly intact, attention grossly intact and language grossly intact Insight: + fair insight Judgement: + fair judgement Vital Signs (Past 24 Hours) Last Vital Signs Temp 36.6 C 05/26/19 06:54 Pulse 61 05/26/19 06:56 Resp 18 05/26/19 06:54 BP 101/71 05/26/19 06:56 Pulse Ox 99 05/22/19 14:55 . Results & Data Current Inpatient Medications Current Inpatient Medications: Current Inpatient Medications Acetaminophen (Tylenol) 650 mg PO Q4H PRN PRN Reason: Headache or Minor Fever Stop: 06/21/19 14:21 Al Hydrox/Mg Hydrox/Simethicone (Maalox) 30 ml PO Q4H PRN PRN Reason: GI Upset Stop: 06/21/19 14:21 Bismuth Subsalicylate (Kaopectate) 15 ml PO PRN PRN PRN Reason: Loose Stool Stop: 06/21/19 14:21 Escitalopram Oxalate (Lexapro Tab) 20 mg PO HS [facility] Stop: 06/23/19 21:59 Last Admin: 05/25/19 20:42 Dose: 20 mg Documented by: Levothyroxine Sodium (Synthroid) 50 mcg PO DAILYBB [facility] Stop: 06/22/19 06:29 Last Admin: 05/26/19 08:43 Dose: 50 mcg Documented by: Lorazepam (Ativan) 0.5 mg PO BID PRN PRN Reason: Anxiety Stop: 06/21/19 14:24 Last Admin: 05/26/19 10:13 Dose: 0.5 mg Documented by: Magnesium Hydroxide (Milk Of Magnesia) 30 ml PO DAILY PRN PRN Reason: Constipation Stop: 06/21/19 14:21 Last Admin: 05/24/19 10:44 Dose: 30 ml Documented by: Miscellaneous (Remove Nicoderm Patch) 1 ea N/A DAILY@0859 [facility] Stop: 06/22/19 08:58 Last Admin: 05/26/19 08:46 Dose: 1 ea Documented by: Nicotine (Nicoderm Cq) 21 mg TD QAM [facility] Stop: 06/22/19 08:59 Last Admin: 05/26/19 08:46 Dose: 21 mg Documented by: Sodium Chloride ([place] Nasal) 1 - 2 sprays NA PRN PRN PRN Reason: Nasal Dryness/Congestion Stop: 06/21/19 14:21 Mental Health & Subst Abuse Tx Psychiatrist Name of Psychiatrist: Gaston Gordon Psychiatrist's Date of Appointment with Psychiatrist: 06/22/19 Time of Appointment with Psychiatrist: 11:30 am Psychiatric Appointment Comment: [address] [place] [address], [address], [place] [address] Post Discharge Appointments Primary Care Physician Name Of Family Doctor: Chayito Warren [facility] Date of Appointment with PCP: 06/15/19 Time of Appointment with PCP: 10:05am Provider Appointment Comment: [address] [place] [address] , [place] [address] Specialist Name of Specialist: [employer] Phone Number for Specialist: [phone] Time of Appointment with Specialist: Call 2 weeks prior to appointment. Contact Information Discharge Discharge Address: [address] [place] [address], [place] [address]
[2019-05-26] MEDS: ESCITALOPRAM OXALATE 20 MG TAB PO SCH (21:33)
[2019-05-27] MEDS: NICOTINE 21 MG/24 HR TDSY TD SCH (08:04)
[2019-05-27] MEDS: LEVOTHYROXINE SODIUM 50 MCG TABLET PO SCH (08:04)
[2019-05-27] MEDS: LORazepam 0.5 MG TAB PO PRN ×2 (10:23→20:32)
--- NOTE | 2019-05-27 10:36 | Psychiatric Progress Note ---
Date of Service May 27, 2019 Impression / Recommendations Impression 73 yo female with a family history of suicide and prior hospitalizations for SI, presents with vegetative symptoms, worsening mood and SI in the context of failed Trintellix trial. Hallucinations seems related to medication side effect as no current evidence of psychotic features or history of bipolarity. Living situation after discharge and referrals for outpatient therapy are ongoing considerations. Ongoing ruminations interfere with ability to function and safety plan outside of the hospital so inpatient care remains least restrictive setting. (1) Major depression, melancholic type: 05/23--The patient was admitted to the [facility] ([facility] mental health unit) on q15 min checks (behavioral with suicide precautions) for safety. The patient will participate in group, recreational, and milieu therapies and will be offered additional individual and family sessions as clinically appropriate. Risks/benefits/alternatives reviewed re: restart of Lexapro. Dionte james agrees. Risks/benefits/alternatives reviewed re: Ativan. She states was taking 0.5 mg up to Bid recently but generally only occasional prn. She is aware can be fall risk in patients over 65 and plan to decrease reliance as Lexapro become effective again 05/24--titrate Lexapro to 20 mg this hs. 05/25 - Continue escitalopram 20mg qHS - Pt reporting only mild improvement in mood, ongoing SI. Remains unable to reliably contract for safety outside of the inpatient setting - Pt considering staying with her sister and [id number] after discharge, but feels as though she will be "a burden" - Pt verbalized she is agreeable with outpatient therapy referral 05/26 - Continue treatment plan as above - SI ongoing, though reportedly improved in frequency and severity - Remains unable to confidently contract for safety outside of inpatient hospital setting - Continue discussion regarding living arrangements after discharge 05/27 - Continue escitalopram 20mg qHS - Worsening mood today, ongoing SI Inventory Assets Strengths: well spoken, compliant with care recs, supportive daughter Needs: retrial of antidepressant, safety plan, more structured activities Risk Factors Assessment Male: No : Yes Do You Have Access To A Gun?: No Mental Health Diagnoses: Yes Substance Use Disorders: No Previous Attempt: No Previous Psychiatric Hospitalization: Yes Protective Factors Assessment Responsible for Young Children: No Employed: No Supportive Family: Yes Good Rapport with Provider: Yes Interval History Identifying Information LANDON CAICEDO is a 73-year-old F who currently lives in alone in [facility], has a history of depression managed on Lexapro for years until recent med change, and was admitted on 05/22/19 15:25 on a 201 voluntary commitment for SI. Chief Complaint "A little down today." Review of Systems Notes Constitutional: denied Cardiovascular: denied Respiratory: denied Gastrointestinal: denied Neurological: denied Psychiatric: denies symptoms other than stated above Total of at least 10 systems reviewed, pertinent positives as above and in HPI. Sleep Information Total Hours of Sleep: 6.5 Sleep Comments: pt on q-15 minute checks Meal Information Percent Meal Consumed - Breakfast: 50 Percent Meal Consumed - Lunch: 90 Percent Meal Consumed - Dinner: 100 Nutrition Comment: Pt states that she "doesn't usually eat breakfast." Subjective Subjective Patient was seen & assessed and interval progress reviewed with nursing and social work. Staff reports patient continues to appears rather depressed. Pt was seen today to assess progress since admission. She gives verbal consent for Gwendolyn Johnson PA-C to observe today's encounter. She states that she is feeling "a little down today. Afraid." When asked what thoughts are beneath this fear, she states, "I just worried about discharge, if I keep having these thoughts of anxiety and depression." Significant time was spent reviewing safety planning, and ways in which we can be prepared to handle anxiety and depression after discharge. She states that she had already completed her safety plan, and was encouraged to review it - possibly adding some additional coping strategies she thinks would be helpful should anxiety or depressive symptoms recur. She admits to increased SI today, and is unsure of her ability to manage these symptoms after discharge. Pt continues to deny side effects related to escitalopram. She denies other needs or concerns from staff today. Physical Exam Psychiatric Orientation: alert, oriented x 3 and cooperative (but somewhat withdrawn and timid) Apperance: appropriately dressed (wearing blanket covering shoulders), appropriately groomed and appeared stated age Eye Contact: good eye contact Motor Behavior: steady gait and station and no abnormal motor movements Speech: normal rate/rhythm/volume of speech (brief responses to questions) Affect: + depressed affect and mood congruent with affect Mood: + depressed mood ("a little down" and "afraid") Thought Process: goal directed thought process, clear/coherent thought process and thought association intact Thought Content: reality based without delusions and + hopelessness Suicidal Thoughts: + reports suicidal thoughts (increased SI today, unable to contract for safety outside of hospital) Homicidal Thoughts: denies homicidal thoughts Hallucinations: no auditory hallucinations and no visual hallucinations Cognition: remote memory grossly intact, attention grossly intact and language grossly intact Insight: + limited insight Judgement: + fair judgement Vital Signs (Past 24 Hours) Last Vital Signs Temp 36.9 C 05/27/19 06:59 Pulse 71 05/27/19 07:00 Resp 18 05/27/19 06:59 BP 116/72 05/27/19 07:00 Pulse Ox 99 05/22/19 14:55 . Results & Data Current Inpatient Medications Current Inpatient Medications: Current Inpatient Medications Acetaminophen (Tylenol) 650 mg PO Q4H PRN PRN Reason: Headache or Minor Fever Stop: 06/21/19 14:21 Al Hydrox/Mg Hydrox/Simethicone (Maalox) 30 ml PO Q4H PRN PRN Reason: GI Upset Stop: 06/21/19 14:21 Bismuth Subsalicylate (Kaopectate) 15 ml PO PRN PRN PRN Reason: Loose Stool Stop: 06/21/19 14:21 Escitalopram Oxalate (Lexapro Tab) 20 mg PO HS [facility] Stop: 06/23/19 21:59 Last Admin: 05/26/19 21:33 Dose: 20 mg Documented by: Levothyroxine Sodium (Synthroid) 50 mcg PO DAILYBB [facility] Stop: 06/22/19 06:29 Last Admin: 05/27/19 08:04 Dose: 50 mcg Documented by: Lorazepam (Ativan) 0.5 mg PO BID PRN PRN Reason: Anxiety Stop: 06/21/19 14:24 Last Admin: 05/27/19 10:23 Dose: 0.5 mg Documented by: Magnesium Hydroxide (Milk Of Magnesia) 30 ml PO DAILY PRN PRN Reason: Constipation Stop: 06/21/19 14:21 Last Admin: 05/24/19 10:44 Dose: 30 ml Documented by: Miscellaneous (Remove Nicoderm Patch) 1 ea N/A DAILY@0859 [facility] Stop: 06/22/19 08:58 Last Admin: 05/27/19 08:04 Dose: 1 ea Documented by: Nicotine (Nicoderm Cq) 21 mg TD QAM [facility] Stop: 06/22/19 08:59 Last Admin: 05/27/19 08:04 Dose: 21 mg Documented by: Sodium Chloride (Garrett Nasal) 1 - 2 sprays NA PRN PRN PRN Reason: Nasal Dryness/Congestion Stop: 06/21/19 14:21 Mental Health & Subst Abuse Tx Psychiatrist Name of Psychiatrist: Gaston Rubin - Dr. Gordon Psychiatrist's Date of Appointment with Psychiatrist: 06/22/19 Time of Appointment with Psychiatrist: 11:30 am Psychiatric Appointment Comment: [address], [address] Therapist Name of Therapist: Gaston Vega, Therapist's Date of Therapist Appointment: 06/02/19 Time of Therapist Appointment: 1pm Therapy Appointment Comment: [address], [address] Post Discharge Appointments Primary Care Physician Name Of Family Doctor: Chayito Warren Primary Care Date of Appointment with PCP: 06/15/19 Time of Appointment with PCP: 10:05am Provider Appointment Comment: [address] [place] [address] , [place] [address] Specialist Name of Specialist: [employer] Phone Number for Specialist: [phone] Time of Appointment with Specialist: Call 2 weeks prior to appointment. Contact Information Discharge Discharge Address: [address] [place] [address] [facility] [id number]
[2019-05-27] MEDS: ESCITALOPRAM OXALATE 20 MG TAB PO SCH (21:16)
[2019-05-28] MEDS: LEVOTHYROXINE SODIUM 50 MCG TABLET PO SCH (08:06)
[2019-05-28] MEDS: NICOTINE 21 MG/24 HR TDSY TD SCH (08:07)
[2019-05-28] MEDS: LORazepam 0.5 MG TAB PO PRN ×2 (10:09→20:50)
--- NOTE | 2019-05-28 11:02 | Psychiatric Progress Note ---
Date of Service May 28, 2019 Impression / Recommendations Impression 73 yo female with a family history of suicide and prior hospitalizations for SI, presents with vegetative symptoms, worsening mood and SI in the context of failed Trintellix trial. Hallucinations seems related to medication side effect as no current evidence of psychotic features or history of bipolarity. Living situation after discharge and referrals for outpatient therapy are ongoing considerations. Ongoing ruminations interfere with ability to function and safety plan outside of the hospital so inpatient care remains least restrictive setting. (1) Major depression, melancholic type: 05/23--The patient was admitted to the [facility] ([facility]) on q15 min checks (behavioral with suicide precautions) for safety. The patient will participate in group, recreational, and milieu therapies and will be offered additional individual and family sessions as clinically appropriate. Risks/benefits/alternatives reviewed re: restart of Lexapro. P atient agrees. Risks/benefits/alternatives reviewed re: Ativan. She states was taking 0.5 mg up to Bid recently but generally only occasional prn. She is aware can be fall risk in patients over 65 and plan to decrease reliance as Lexapro become effective again 05/24--titrate Lexapro to 20 mg this hs. 05/25 - Continue escitalopram 20mg qHS - Pt reporting only mild improvement in mood, ongoing SI. Remains unable to reliably contract for safety outside of the inpatient setting - Pt considering staying with her sister and [id number] after discharge, but feels as though she will be "a burden" - Pt verbalized she is agreeable with outpatient therapy referral 05/26 - Continue treatment plan as above - SI ongoing, though reportedly improved in frequency and severity - Remains unable to confidently contract for safety outside of inpatient hospital setting - Continue discussion regarding living arrangements after discharge 05/27 - Continue escitalopram 20mg qHS - Worsening mood today, ongoing SI 05/28 - Continue treatment plan as above - Pt reporting mildly improved mood today, denies SI at present - Continues to be unsure about desired living arrangements at discharge, but appears to be better able to process aspects of this decision today Inventory Assets Strengths: well spoken, compliant with care recs, supportive daughter Needs: retrial of antidepressant, safety plan, more structured activities Risk Factors Assessment Male: No : Yes Do You Have Access To A Gun?: No Mental Health Diagnoses: Yes Substance Use Disorders: No Previous Attempt: No Previous Psychiatric Hospitalization: Yes Protective Factors Assessment Responsible for Young Children: No Employed: No Supportive Family: Yes Good Rapport with Provider: Yes Interval History Identifying Information LANDON CAICEDO is a 73-year-old F who currently lives in alone in [facility], has a history of depression managed on Lexapro for years until recent med change, and was admitted on 05/22/19 15:25 on a 201 voluntary commitment for SI. Chief Complaint "I'm feeling a little better today. I still do fear going home." Review of Systems Notes Constitutional: denied Cardiovascular: denied Respiratory: denied Gastrointestinal: denied Neurological: denied Psychiatric: denies symptoms other than stated above Total of at least 10 systems reviewed, pertinent positives as above and in HPI. Sleep Information Total Hours of Sleep: 6 Sleep Comments: pt on q-15 minute checks Meal Information Percent Meal Consumed - Breakfast: 100 Percent Meal Consumed - Lunch: 100 Percent Meal Consumed - Dinner: 100 Nutrition Comment: Pt states that she "doesn't usually eat breakfast." Subjective Subjective Patient was seen & assessed and interval progress reviewed with treatment team. Staff report the patient requested and received prn lorazepam yesterday for anxiety symptoms. She had continued to display tearful affect yesterday, with ongoing reports of hopelessness. Pt was seen today to assess progress since admission. Pt states she is feeling "a little better" today. She does admit to ongoing concerns related to eventual discharge, stating she continues to "fear going home." Pt admits to continued ruminative thoughts about her past , as well as continued fear to anxiety and depressive symptoms may recur. Pt does admit that the severity of the thoughts has "lessened a little bit". She denies SI today, but does admit to persistent SI throughout the day yesterday. Pt continues to consider her housing options at discharge. She is able to tolerate a more thorough conversation regarding how she can best utilize the support of her sister and daughter. Pt states she has considered returning home to live independently, but go to her sister or daughter's house for support and a change of scenery if symptoms should worsen. She states she is still unsure at this time that this will be her final decision. Pt denies other needs or concerns from staff at this time. Physical Exam Psychiatric Orientation: alert, oriented x 3 and cooperative Apperance: appropriately dressed, appropriately groomed and appeared stated age Eye Contact: good eye contact Motor Behavior: steady gait and station and no abnormal motor movements Speech: normal rate/rhythm/volume of speech Affect: + depressed affect (mildly brighter today) and mood congruent with affect Mood: + depressed mood ("A little better") and + anxious mood ("I still do fear going home" ) and "still having a lot of thoughts about the " Thought Process: goal directed thought process and + perseveration (appearing to be somewhat less severe today) Thought processing seeming to be somewhat less ruminative today Thought Content: + preoccupation (about past and fears of returning home), reality based without delusions and + guilt (continues to feel she is a burden on family/supports); no hopelessness Suicidal Thoughts: denies suicidal thoughts (admits to SI ongoing throughout the day yesterday) and denies suicidal intent Homicidal Thoughts: denies homicidal thoughts Hallucinations: no auditory hallucinations and no visual hallucinations Cognition: attention grossly intact and language grossly intact Insight: + fair insight Judgement: + fair judgement Vital Signs (Past 24 Hours) Last Vital Signs Temp 36.6 C 05/28/19 06:56 Pulse 59 L 05/28/19 06:56 Resp 18 05/28/19 06:56 BP 109/69 05/28/19 06:56 Pulse Ox 99 05/22/19 14:55 . Results & Data Current Inpatient Medications Current Inpatient Medications: Current Inpatient Medications Acetaminophen (Tylenol) 650 mg PO Q4H PRN PRN Reason: Headache or Minor Fever Stop: 06/21/19 14:21 Al Hydrox/Mg Hydrox/Simethicone (Maalox) 30 ml PO Q4H PRN PRN Reason: GI Upset Stop: 06/21/19 14:21 Bismuth Subsalicylate (Kaopectate) 15 ml PO PRN PRN PRN Reason: Loose Stool Stop: 06/21/19 14:21 Escitalopram Oxalate (Lexapro Tab) 20 mg PO HS [facility] Stop: 06/23/19 21:59 Last Admin: 05/27/19 21:16 Dose: 20 mg Documented by: Levothyroxine Sodium (Synthroid) 50 mcg PO DAILYBB [facility] Stop: 06/22/19 06:29 Last Admin: 05/28/19 08:06 Dose: 50 mcg Documented by: Lorazepam (Ativan) 0.5 mg PO BID PRN PRN Reason: Anxiety Stop: 06/21/19 14:24 Last Admin: 05/28/19 10:09 Dose: 0.5 mg Documented by: Magnesium Hydroxide (Milk Of Magnesia) 30 ml PO DAILY PRN PRN Reason: Constipation Stop: 06/21/19 14:21 Last Admin: 05/24/19 10:44 Dose: 30 ml Documented by: Miscellaneous (Remove Nicoderm Patch) 1 ea N/A DAILY@0859 [facility] Stop: 06/22/19 08:58 Last Admin: 05/28/19 08:10 Dose: 1 ea Documented by: Nicotine (Nicoderm Cq) 21 mg TD QAM [facility] Stop: 06/22/19 08:59 Last Admin: 05/28/19 08:07 Dose: 21 mg Documented by: Sodium Chloride (Gilliam Nasal) 1 - 2 sprays NA PRN PRN PRN Reason: Nasal Dryness/Congestion Stop: 06/21/19 14:21 Mental Health & Subst Abuse Tx Psychiatrist Name of Psychiatrist: Gaston Gordon Psychiatrist's Date of Appointment with Psychiatrist: 06/22/19 Time of Appointment with Psychiatrist: 11:30 am Psychiatric Appointment Comment: [address] Therapist Name of Therapist: Gaston Vega, Therapist's Date of Therapist Appointment: 06/02/19 Time of Therapist Appointment: 1pm Therapy Appointment Comment: [address] Post Discharge Appointments Primary Care Physician Name Of Family Doctor: Chayito Warren Primary Care Date of Appointment with PCP: 06/15/19 Time of Appointment with PCP: 10:05am Provider Appointment Comment: [address] [place] [address] , [place] [address] Specialist Name of Specialist: [employer] Phone Number for Specialist: [phone] Time of Appointment with Specialist: Call 2 weeks prior to appointment. Contact Information Discharge Discharge Address: [address] [place] [id number]
[2019-05-28] MEDS: ESCITALOPRAM OXALATE 20 MG TAB PO SCH (20:50)
--- NOTE | 2019-05-29 07:49 | Psychiatric Progress Note ---
Date of Service May 29, 2019 Impression / Recommendations Impression 73 y/o female with a family history of suicide and prior hospitalizations for SI, presents with vegetative symptoms, worsening mood and SI in the context of failed Trintellix trial. Hallucinations seems related to medication side effect as no current evidence of psychotic features or history of bipolarity. Living situation after discharge and referrals for outpatient therapy are ongoing. She remains severely depressed with negative ruminations, which is interfering with her ability to function and utilize coping skills. She is declining a trial of a different augmenting agent, but is engaged and participating in treatment. She remains at risk for suicide and inpatient care is medically necessary. (1) Major depression, melancholic type: 05/23--[facility]) on q15 min checks (behavioral with suicide precautions) for safety. The patient will participate in group, recreational, and milieu therapies and will be offered additional individual and family sessions as clinically appropriate. Risks/benefits/alternatives reviewed re: restart of Lexapro. Patient agrees. Risks/benefits/alternatives reviewed re: Ativan. She states was taking 0.5 mg up to Bid recently but generally only occasional prn. She is aware can be fall risk in patients over 65 and plan to decrease reliance as Lexapro become effective again 05/24--titrate Lexapro to 20 mg this hs. 05/25 - Continue escitalopram 20mg qHS - Pt reporting only mild improvement in mood, ongoing SI. Remains unable to reliably contract for safety outside of the inpatient setting - Pt considering staying with her sister and [id number] after discharge, but feels as though she will be "a burden" - Pt verbalized she is agreeable with outpatient therapy referral 05/26 - Continue treatment plan as above - SI ongoing, though reportedly improved in frequency and severity - Remains unable to confidently contract for safety outside of inpatient hospital setting - Continue discussion regarding living arrangements after discharge 05/27 - Continue escitalopram 20mg qHS - Worsening mood today, ongoing SI 05/28 - Continue treatment plan as above - Pt reporting mildly improved mood today, denies SI at present - Continues to be unsure about desired living arrangements at discharge, but appears to be better able to process aspects of this decision today 05/19 -Depression, SI, and tearfulness continue. She has been on escitalopram 20 mg daily for 5 days, which was previously effective. Discussed other augmenting agents, including quetiapine, Cytomel, buspirone, and lithium, but she is not interested in trying a new medication. Continue to engage her in therapy and work on healthy coping skills. Inventory Assets Strengths: well spoken, compliant with care recs, supportive daughter Needs: retrial of antidepressant, safety plan, more structured activities Risk Factors Assessment Male: No : Yes Do You Have Access To A Gun?: No Mental Health Diagnoses: Yes Substance Use Disorders: No Previous Attempt: No Previous Psychiatric Hospitalization: Yes Protective Factors Assessment Responsible for Young Children: No Employed: No Supportive Family: Yes Good Rapport with Provider: Yes Interval History Identifying Information LANDON CAICEDO is a 73-year-old F who currently lives in alone in [facility], has a history of depression managed on Lexapro for years until recent med change, and was admitted on 05/22/19 15:25 on a 201 voluntary commitment for SI. Chief Complaint "Up and down". Review of Systems Sleep Information Total Hours of Sleep: 6.5 Sleep Comments: pt on q-15 minute checks Meal Information Percent Meal Consumed - Breakfast: 100 Percent Meal Consumed - Lunch: 100 Percent Meal Consumed - Dinner: 100 Nutrition Comment: Pt states that she "doesn't usually eat breakfast." Subjective Subjective Patient was seen & assessed and interval progress reviewed with nursing. Staff report she has shown slight improvement in her mood and negative ruminations, but is still fearful and depressed. On my assessment, she reports mood is "up and down," and "the obsessive thoughts are back." States when she is depressed, she ruminates on an she had in her 20s. Notes that "it was the right things to do at the time," but she cannot stop thinking about it and feeling badly about it. Mood remains low, worse in the morning, she does not think it has improved since admission. She is going to groups and working on "stress." Reports sleep and appetite and "not bad." She can't tell if medication is helping, although notes she was on escitalopram for years and it worked well in the past, and is taking lorazepam twice a day, which "takes the edge off a little." Denies side effects to either medication. States she "has no idea" what would be helpful for her. Notes some improvement from deep breathing, positive self talk. She does not want to consider augmenting strategies and wants to give her current medications a chance to work. She discussed her multiple stressors and losses, and feelings of loneliness. She is still struggling with deciding if she will stay with her sister after discharge. She Physical Exam Psychiatric Orientation: alert and cooperative Apperance: appropriately dressed, appropriately groomed and appeared stated age Eye Contact: good eye contact Motor Behavior: steady gait and station and no abnormal motor movements Speech: normal rate/rhythm/volume of speech minimal, short answers Affect: + depressed affect and mood congruent with affect Mood: + depressed mood and + anxious mood Thought Process: goal directed thought process Thought Content: + cognitive distortions Suicidal Thoughts: + reports suicidal thoughts "There is when I just wish I wouldn't wake up." Homicidal Thoughts: denies homicidal thoughts Hallucinations: no auditory hallucinations and no visual hallucinations Cognition: recent memory grossly intact and language grossly intact Estimated Intelligence: average estimated intelligence Insight: + fair insight Judgement: + fair judgement Vital Signs (Past 24 Hours) Last Vital Signs Temp 36.7 C 05/29/19 06:53 Pulse 60 05/29/19 06:54 Resp 18 05/29/19 06:53 BP 95/61 L 05/29/19 06:54 Pulse Ox 99 05/22/19 14:55 . Results & Data Current Inpatient Medications Current Inpatient Medications: Current Inpatient Medications Acetaminophen (Tylenol) 650 mg PO Q4H PRN PRN Reason: Headache or Minor Fever Stop: 06/21/19 14:21 Al Hydrox/Mg Hydrox/Simethicone (Maalox) 30 ml PO Q4H PRN PRN Reason: GI Upset Stop: 06/21/19 14:21 Bismuth Subsalicylate (Kaopectate) 15 ml PO PRN PRN PRN Reason: Loose Stool Stop: 06/21/19 14:21 Escitalopram Oxalate (Lexapro Tab) 20 mg PO HS [facility] Stop: 06/23/19 21:59 Last Admin: 05/28/19 20:50 Dose: 20 mg Documented by: Levothyroxine Sodium (Synthroid) 50 mcg PO DAILYBB [facility] Stop: 06/22/19 06:29 Last Admin: 05/28/19 08:06 Dose: 50 mcg Documented by: Lorazepam (Ativan) 0.5 mg PO BID PRN PRN Reason: Anxiety Stop: 06/21/19 14:24 Last Admin: 05/28/19 20:50 Dose: 0.5 mg Documented by: Magnesium Hydroxide (Milk Of Magnesia) 30 ml PO DAILY PRN PRN Reason: Constipation Stop: 06/21/19 14:21 Last Admin: 05/24/19 10:44 Dose: 30 ml Documented by: Miscellaneous (Remove Nicoderm Patch) 1 ea N/A DAILY@0859 [facility] Stop: 06/22/19 08:58 Last Admin: 05/28/19 08:10 Dose: 1 ea Documented by: Nicotine (Nicoderm Cq) 21 mg TD QAM [facility] Stop: 06/22/19 08:59 Last Admin: 05/28/19 08:07 Dose: 21 mg Documented by: Sodium Chloride ([place] Nasal) 1 - 2 sprays NA PRN PRN PRN Reason: Nasal Dryness/Congestion Stop: 06/21/19 14:21 Mental Health & Subst Abuse Tx Psychiatrist Name of Psychiatrist: Gaston Gordon Psychiatrist's Date of Appointment with Psychiatrist: 06/22/19 Time of Appointment with Psychiatrist: 11:30 am Psychiatric Appointment Comment: [address], [place] [address] Therapist Name of Therapist: Gaston Vega, Therapist's Date of Therapist Appointment: 06/02/19 Time of Therapist Appointment: 1pm Therapy Appointment Comment: [address] Post Discharge Appointments Primary Care Physician Name Of Family Doctor: Chayito Warren Primary [facility] Date of Appointment with PCP: 06/15/19 Time of Appointment with PCP: 10:05am Provider Appointment Comment: [address] [place] [address] , [place] [address] Specialist Name of Specialist: [employer] Phone Number for Specialist: [phone] Time of Appointment with Specialist: Call 2 weeks prior to appointment. Contact Information Discharge Discharge Address: [address] [place] [address]
[2019-05-29] MEDS: NICOTINE 21 MG/24 HR TDSY TD SCH (07:55)
[2019-05-29] MEDS: LEVOTHYROXINE SODIUM 50 MCG TABLET PO SCH (07:55)
[2019-05-29] MEDS: LORazepam 0.5 MG TAB PO PRN ×2 (09:33→20:48)
[2019-05-29] MEDS: MAGNESIUM HYDROXIDE SUSP 30 ML UDC PO PRN (12:58)
[2019-05-29] MEDS: ESCITALOPRAM OXALATE 20 MG TAB PO SCH (20:48)
[2019-05-30] MEDS: NICOTINE 21 MG/24 HR TDSY TD SCH (07:54)
[2019-05-30] MEDS: LEVOTHYROXINE SODIUM 50 MCG TABLET PO SCH (07:54)
[2019-05-30] MEDS: LORazepam 0.5 MG TAB PO PRN ×2 (10:19→20:51)
--- NOTE | 2019-05-30 10:39 | Psychiatric Progress Note ---
Date of Service May 30, 2019 Impression / Recommendations Impression 73 y/o female with a family history of suicide and prior hospitalizations for SI, presents with vegetative symptoms, worsening mood and SI in the context of failed Trintellix trial. Hallucinations may have been related to Trintellix, as were short lived and have since resolved, and no other psychotic symptoms. Living situation after discharge is primary stressor, as lonely, and has been resistant to offers to go stay with family after discharge. She remains severely depressed with negative ruminations, which is interfering with her ability to function and utilize coping skills. She is declining a trial of a different augmenting agent, but is engaged and participating in treatment. She remains at risk for suicide and inpatient care is medically necessary. (1) Major depression, melancholic type: 05/23--The patient was admitted to the [facility] ([facility] mental health unit) on q15 min checks (behavioral with suicide precautions) for safety. The patient will participate in group, recreational, and milieu therapies and will be offered additional individual and family sessions as clinically appropriate. Risks/benefits/alternatives reviewed re: restart of Lexapro. Patient agrees. Risks/benefits/alternatives reviewed re: Ativan. She states was taking 0.5 mg up to Bid recently but generally only occasional prn. She is aware can be fall risk in patients over 65 and plan to decrease reliance as Lexapro become effective again 05/24--titrate Lexapro to 20 mg this hs. 05/25 - Continue escitalopram 20mg qHS - Pt reporting only mild improvement in mood, ongoing SI. Remains unable to reliably contract for safety outside of the inpatient setting - Pt considering staying with her sister and [id number] after discharge, but feels as though she will be "a burden" - Pt verbalized she is agreeable with outpatient therapy referral 05/26 - Continue treatment plan as above - SI ongoing, though reportedly improved in frequency and severity - Remains unable to confidently contract for safety outside of inpatient hospital setting - Continue discussion regarding living arrangements after discharge 05/27 - Continue escitalopram 20mg qHS - Worsening mood today, ongoing SI 05/28 - Continue treatment plan as above - Pt reporting mildly improved mood today, denies SI at present - Continues to be unsure about desired living arrangements at discharge, but appears to be better able to process aspects of this decision today 05/29 -Depression, SI, and tearfulness continue. She has been on escitalopram 20 mg daily for 5 days, which was previously effective. Discussed other augmenting agents, including quetiapine, Cytomel, buspirone, and lithium, but she is not interested in trying a new medication. Continue to engage her in therapy and work on healthy coping skills. 05/30 - Encourage patient to talk more with sister and daughter about staying with them briefly after discharge for increased support/socialization. Inventory Assets Strengths: well spoken, compliant with care recs, supportive daughter Needs: retrial of antidepressant, safety plan, more structured activities Risk Factors Assessment Male: No : Yes Do You Have Access To A Gun?: No Mental Health Diagnoses: Yes Substance Use Disorders: No Previous Attempt: No Previous Psychiatric Hospitalization: Yes Protective Factors Assessment Responsible for Young Children: No Employed: No Supportive Family: Yes Good Rapport with Provider: Yes Interval History Identifying Information LANDON CAICEDO is a 73-year-old F who currently lives in alone in [facility], has a history of depression managed on Lexapro for years until recent med change, and was admitted on 05/22/19 15:25 on a 201 voluntary commitment for SI. Chief Complaint "Not too bad". Review of Systems Sleep Information Total Hours of Sleep: 6.5 Sleep Comments: pt on q-15 minute checks Meal Information Percent Meal Consumed - Breakfast: 75 Percent Meal Consumed - Lunch: 100 Percent Meal Consumed - Dinner: 100 Nutrition Comment: Pt states that she "doesn't usually eat breakfast." Subjective Subjective Patient was seen & assessed and interval progress reviewed with nursing. Staff report she had a difficult day yesterday, was more depressed and hopeless, frequently tearful. Today she reports mood is "a little better," rates it a 5 out of 10. Reports worry that "the medicine won't work." Feels safe here, but continues to worry "quite a bit" about what will happen when she leaves, "that I won't get better, I'll leave and be the same." She thinks it would help to be around more people, but has no ideas about how to make that happen, "just call people I guess." She talks to her family on the phone but doesn't visit them often, although states she could do that. She repeatedly asks "do you think I can get better?" She is still unsure if she will go stay with her sister, stating her sister wants her to come, but she is unsure, due to "just the thought of imposing on people." She has no other ideas for how she would increase her socialization/supports. Her sister is retired so is home all day, and she says they haven't talked about what they would do all day. Her daughter has also offered for the patient to come stay with her. Physical Exam Psychiatric Orientation: alert, oriented x 3 and cooperative Apperance: appropriately dressed, appropriately groomed and appeared stated age Eye Contact: good eye contact Motor Behavior: steady gait and station and no abnormal motor movements Speech: normal rate/rhythm/volume of speech Affect: + depressed affect Mood: + depressed mood (improved) and + anxious mood Thought Process: goal directed thought process Thought Content: + cognitive distortions Suicidal Thoughts: denies suicidal thoughts Homicidal Thoughts: denies homicidal thoughts Hallucinations: no auditory hallucinations and no visual hallucinations Cognition: recent memory grossly intact, attention grossly intact and language grossly intact Insight: + impaired insight Judgement: + fair judgement Vital Signs (Past 24 Hours) Last Vital Signs Temp 36.6 C 05/30/19 06:55 Pulse 61 05/30/19 06:56 Resp 16 05/30/19 06:55 BP 100/63 05/30/19 06:56 Pulse Ox 99 05/22/19 14:55 . Results & Data Current Inpatient Medications Current Inpatient Medications: Current Inpatient Medications Acetaminophen (Tylenol) 650 mg PO Q4H PRN PRN Reason: Headache or Minor Fever Stop: 06/21/19 14:21 Al Hydrox/Mg Hydrox/Simethicone (Maalox) 30 ml PO Q4H PRN PRN Reason: GI Upset Stop: 06/21/19 14:21 Bismuth Subsalicylate (Kaopectate) 15 ml PO PRN PRN PRN Reason: Loose Stool Stop: 06/21/19 14:21 Escitalopram Oxalate (Lexapro Tab) 20 mg PO HS [facility] Stop: 06/23/19 21:59 Last Admin: 05/29/19 20:48 Dose: 20 mg Documented by: Levothyroxine Sodium (Synthroid) 50 mcg PO DAILYBB [facility] Stop: 06/22/19 06:29 Last Admin: 05/30/19 07:54 Dose: 50 mcg Documented by: Lorazepam (Ativan) 0.5 mg PO BID PRN PRN Reason: Anxiety Stop: 06/21/19 14:24 Last Admin: 05/30/19 10:19 Dose: 0.5 mg Documented by: Magnesium Hydroxide (Milk Of Magnesia) 30 ml PO DAILY PRN PRN Reason: Constipation Stop: 06/21/19 14:21 Last Admin: 05/29/19 12:58 Dose: 30 ml Documented by: Miscellaneous (Remove Nicoderm Patch) 1 ea N/A DAILY@0859 [facility] Stop: 06/22/19 08:58 Last Admin: 05/30/19 07:54 Dose: Not Given Documented by: Nicotine (Nicoderm Cq) 21 mg TD QAM [facility] Stop: 06/22/19 08:59 Last Admin: 05/30/19 07:54 Dose: 21 mg Documented by: Sodium Chloride ([place] Nasal) 1 - 2 sprays NA PRN PRN PRN Reason: Nasal Dryness/Congestion Stop: 06/21/19 14:21 Mental Health & Subst Abuse Tx Psychiatrist Name of Psychiatrist: Gaston Gordon Psychiatrist's Date of Appointment with Psychiatrist: 06/22/19 Time of Appointment with Psychiatrist: 11:30 am Psychiatric Appointment Comment: [place] [address] Therapist Name of Therapist: Gaston Vega, Therapist's Date of Therapist Appointment: 06/02/19 Time of Therapist Appointment: 1pm Therapy Appointment Comment: [place] [address] Post Discharge Appointments Primary Care Physician Name Of Family Doctor: Chayito Warren Primary [facility] Date of Appointment with PCP: 06/15/19 Time of Appointment with PCP: 10:05am Provider Appointment Comment: [address] [place] [address] , [place] [address] Specialist Name of Specialist: [employer] Phone Number for Specialist: [phone] Time of Appointment with Specialist: Call 2 weeks prior to appointment. Contact Information Discharge Discharge Address: [address] [place] [address]
[2019-05-30] MEDS: ESCITALOPRAM OXALATE 20 MG TAB PO SCH (20:51)
[2019-05-31] MEDS: NICOTINE 21 MG/24 HR TDSY TD SCH (07:44)
[2019-05-31] MEDS: LEVOTHYROXINE SODIUM 50 MCG TABLET PO SCH (07:44)
[2019-05-31] MEDS: LORazepam 0.5 MG TAB PO PRN ×2 (10:27→21:50)
--- NOTE | 2019-05-31 10:37 | Psychiatric Progress Note ---
Date of Service May 31, 2019 Impression / Recommendations Impression 73 y/o female with a family history of suicide and prior hospitalizations for SI, presents with vegetative symptoms, worsening mood and SI in the context of failed Trintellix trial. Hallucinations may have been related to Trintellix, as were short lived and have since resolved, and no other psychotic symptoms. She has demonstrated intermittent improvement in negative ruminations, but admits to anticipatory anxiety related to managing symptoms on discharge. At this point, she has verbalized willingness to live with her sister and [id number] after discharge for additional support. She is declining a trial of a different augmenting agent, but is engaged and participating in treatment. She remains at risk for suicide and inpatient care is medically necessary. (1) Major depression, melancholic type: 05/23--The patient was admitted to the [facility] ([facility] mental health unit) on q15 min checks (behavioral with suicide precautions) for safety. The patient will participate in group, recreational, and milieu therapies and will be offered additional individual and family sessions as clinically appropriate. Risks/benefits/alternatives reviewed re: restart of Lexapro. Patient agrees. Risks/benefits/alternatives reviewed re: Ativan. She states was taking 0.5 mg up to Bid recently but generally only occasional prn. She is aware can be fall risk in patients over 65 and plan to decrease reliance as Lexapro become effective again 05/24--titrate Lexapro to 20 mg this hs. 05/25 - Continue escitalopram 20mg qHS - Pt reporting only mild improvement in mood, ongoing SI. Remains unable to reliably contract for safety outside of the inpatient setting - Pt considering staying with her sister and [id number] after discharge, but feels as though she will be "a burden" - Pt verbalized she is agreeable with outpatient therapy referral 05/26 - Continue treatment plan as above - SI ongoing, though reportedly improved in frequency and severity - Remains unable to confidently contract for safety outside of inpatient hospital setting - Continue discussion regarding living arrangements after discharge 05/27 - Continue escitalopram 20mg qHS - Worsening mood today, ongoing SI 05/28 - Continue treatment plan as above - Pt reporting mildly improved mood today, denies SI at present - Continues to be unsure about desired living arrangements at discharge, but appears to be better able to process aspects of this decision today 05/29 -Depression, SI, and tearfulness continue. She has been on escitalopram 20 mg daily for 5 days, which was previously effective. Discussed other augmenting agents, including quetiapine, Cytomel, buspirone, and lithium, but she is not interested in trying a new medication. Continue to engage her in therapy and work on healthy coping skills. 05/30 - Encourage patient to talk more with sister and daughter about staying with them briefly after discharge for increased support/socialization. 05/31 - Reporting increased anxiety today related to discharge planning. - Denying SI, and reported willingness to live with sister and [id number] at discharge - Has therapy appointment 06/02 in the afternoon, consider readiness for discharge tomorrow Inventory Assets Strengths: well spoken, compliant with care recs, supportive daughter Needs: retrial of antidepressant, safety plan, more structured activities Risk Factors Assessment Male: No : Yes Do You Have Access To A Gun?: No Mental Health Diagnoses: Yes Substance Use Disorders: No Previous Attempt: No Previous Psychiatric Hospitalization: Yes Protective Factors Assessment Responsible for Young Children: No Employed: No Supportive Family: Yes Good Rapport with Provider: Yes Interval History Identifying Information LANDON CAICEDO is a 73-year-old F who currently lives in alone in [facility], has a history of depression managed on Lexapro for years until recent med change, and was admitted on 05/22/19 15:25 on a 201 voluntary commitment for SI. Chief Complaint "Um, more anxious about leaving tomorrow." Review of Systems Notes Constitutional: denied Cardiovascular: denied Respiratory: denied Gastrointestinal: denied Neurological: denied Psychiatric: denies symptoms other than stated above Total of at least 10 systems reviewed, pertinent positives as above and in HPI. Sleep Information Total Hours of Sleep: 6.25 Sleep Comments: pt on q-15 minute checks Meal Information Percent Meal Consumed - Breakfast: 100 Percent Meal Consumed - Lunch: 100 Percent Meal Consumed - Dinner: 100 Nutrition Comment: Pt states that she "doesn't usually eat breakfast." Subjective Subjective Patient was seen & assessed and interval progress reviewed with treatment team. Staff reporting the patient has continued to demonstrate slow improvements over the course of her hospitalization. She reportedly appeared brighter last evening. Pt did report plan to live with her sister after discharge for a period of time. Pt was seen today to assess progress since admission. She presented to the nurses station to request prn medication for anxiety, as she states she is overwhelmed with plan for discharge tomorrow in order to allow her to attend her outpatient therapy appointment. Pt was agreeable with speaking with this provider while she awaited the medication. She states that her largest concern at this time is transportation, as she is not sure who would be picking her up or how she would get to these appointments. We reviewed [facility] transportation options and that social work will go over these details more thoroughly prior to discharge. Pt states that she was feeling much more hopeful yesterday, but is feeling more overwhelmed today. She denies SI at this time, but does admit to ongoing concern related to anxious and depressed thoughts. We reviewed ways patient could schedule enjoyable activities into her morning, to ensure that negative thoughts in the morning are not leading patient to feel the whole day has to be "a bad day." She was encouraged to re-evaluate her safety plan prior to discharge. She denies other needs or concerns today. Physical Exam Psychiatric Orientation: alert, oriented x 3 and cooperative Apperance: appropriately dressed, appropriately groomed and appeared stated age Eye Contact: good eye contact Motor Behavior: steady gait and station and no abnormal motor movements Speech: normal rate/rhythm/volume of speech Affect: + depressed affect and + tearful affect Mood: + depressed mood and + anxious mood Thought Process: goal directed thought process, linear/logical thought process and thought association intact Thought Content: reality based without delusions and + hopelessness (intermittent thoughts of hopelessness, improving overall) Suicidal Thoughts: denies suicidal thoughts and denies suicidal intent Homicidal Thoughts: denies homicidal thoughts Hallucinations: no auditory hallucinations and no visual hallucinations Cognition: attention grossly intact and language grossly intact Insight: + fair insight Judgement: + fair judgement Vital Signs (Past 24 Hours) Last Vital Signs Temp 36.8 C 05/31/19 06:00 Pulse 54 L 05/31/19 06:00 Resp 16 05/31/19 06:00 BP 109/69 05/31/19 06:00 Pulse Ox 99 05/22/19 14:55 . Results & Data Current Inpatient Medications Current Inpatient Medications: Current Inpatient Medications Acetaminophen (Tylenol) 650 mg PO Q4H PRN PRN Reason: Headache or Minor Fever Stop: 06/21/19 14:21 Al Hydrox/Mg Hydrox/Simethicone (Maalox) 30 ml PO Q4H PRN PRN Reason: GI Upset Stop: 06/21/19 14:21 Bismuth Subsalicylate (Kaopectate) 15 ml PO PRN PRN PRN Reason: Loose Stool Stop: 06/21/19 14:21 Escitalopram Oxalate (Lexapro Tab) 20 mg PO HS [facility] Stop: 06/23/19 21:59 Last Admin: 05/30/19 20:51 Dose: 20 mg Documented by: Levothyroxine Sodium (Synthroid) 50 mcg PO DAILYBB [facility] Stop: 06/22/19 06:29 Last Admin: 05/31/19 07:44 Dose: 50 mcg Documented by: Lorazepam (Ativan) 0.5 mg PO BID PRN PRN Reason: Anxiety Stop: 06/21/19 14:24 Last Admin: 05/31/19 10:27 Dose: 0.5 mg Documented by: Magnesium Hydroxide (Milk Of Magnesia) 30 ml PO DAILY PRN PRN Reason: Constipation Stop: 06/21/19 14:21 Last Admin: 05/29/19 12:58 Dose: 30 ml Documented by: Miscellaneous (Remove Nicoderm Patch) 1 ea N/A [id number] [facility] Stop: 06/22/19 08:58 Last Admin: 05/31/19 07:45 Dose: Not Given Documented by: Nicotine (Nicoderm Cq) 21 mg TD QAM [facility] Stop: 06/22/19 08:59 Last Admin: 05/31/19 07:44 Dose: 21 mg Documented by: Sodium Chloride ([place] Nasal) 1 - 2 sprays NA PRN PRN PRN Reason: Nasal Dryness/Congestion Stop: 06/21/19 14:21 Mental Health & Subst Abuse Tx Psychiatrist Name of Psychiatrist: Gsaton Rubin - Dr. Gordon Psychiatrist's Date of Appointment with Psychiatrist: 06/22/19 Time of Appointment with Psychiatrist: 11:30 am Psychiatric Appointment Comment: [facility] Therapist Name of Therapist: Gaston Vega, Therapist's Date of Therapist Appointment: 06/02/19 Time of Therapist Appointment: 1pm Therapy Appointment Comment: [facility] Post Discharge Appointments Primary Care Physician Name Of Family Doctor: [facility] Date of Appointment with PCP: 06/15/19 Time of Appointment with PCP: 10:05am Provider Appointment Comment: [address] [place] [address] , [place] [address] Specialist Name of Specialist: [employer] Phone Number for Specialist: [phone] Time of Appointment with Specialist: Call 2 weeks prior to appointment. Contact Information Discharge Discharge Address: [address] [place] [address], [place] [address]
[2019-05-31] MEDS: ESCITALOPRAM OXALATE 20 MG TAB PO SCH (21:47)
[2019-06-01] MEDS: NICOTINE 21 MG/24 HR TDSY TD SCH (07:54)
[2019-06-01] MEDS: LEVOTHYROXINE SODIUM 50 MCG TABLET PO SCH (07:54)
[2019-06-01] MEDS ORDERED: DESTROY THIS MEDICATION ONE (09:44)
[2019-06-01] MEDS: LORazepam 0.5 MG TAB PO PRN (09:52)
--- NOTE | 2019-06-01 10:06 | Discharge Summary ---
Date of Service June 01, 2019 History of Present Illness Progressive decline over past few years due to multiple losses/worries. 3 years ago, her daughter got , and her son went to [facility] last year for an extended sentence. He has had 1 suicide attempt while incarcerated and she fears she will get a call that he has reattempted. She is rather isolated in her place, particularly as winter and doesn't feel she has the energy or motivation to do much. She is lonely after putting down her 2 cats and things "only got worse" following switch from lexapro to Trintellix trial about 10 weeks ago. She feels her mood dropped lower with the recurrence of SI and she also experienced visual hale of black figures hovering over her at night as well as "sparklies" like glitter around her tv screen. This resolved when the dose was decreased to 10 mg of Trintellix a few weeks ago and Trintellix was held on admission. She states that when more depressed she ruminates about the cost of things and feels guilty like she should be punished for an that she had at the age of 27 yo. Overall her appetite has been down, sleep is OK with only occasional MOE. Physical Exam Psychiatric Orientation: alert, oriented x 3 and cooperative Apperance: appropriately dressed, appropriately groomed and appeared stated age Eye Contact: good eye contact Motor Behavior: steady gait and station and no abnormal motor movements Speech: normal rate/rhythm/volume of speech Affect: + blunted affect "Just trying to stay hopeful." Thought Process: goal directed thought process and + concrete thought process Thought Content: + preoccupation (if she will get better, "if the meds will work") Suicidal Thoughts: denies suicidal thoughts Homicidal Thoughts: denies homicidal thoughts Hallucinations: no auditory hallucinations and no visual hallucinations Cognition: recent memory grossly intact, attention grossly intact and language grossly intact Insight: + limited insight Judgement: + fair judgement Vital Signs (Past 24 Hours) Last Vital Signs Temp 36.8 C 06/01/19 06:00 Pulse 61 06/01/19 06:00 Resp 16 06/01/19 06:00 BP 101/64 06/01/19 06:00 Pulse Ox 99 05/22/19 14:55 . Principal Diagnosis Major depressive disorder, recurrent, severe without psychosis. Rule out dysthymia Anxiety not otherwise specified. Psychiatric Data The patient was hospitalized for 10 days. On admission, she was started back on escitalopram, and her dose titrated to 20 mg daily which she tolerated well. She continued on 0.5mg lorazepam bid prn, which she took twice daily throughout her stay. She struggled with negative, ruminative thoughts, specifically worry ing that she would not get better, or that her medications would not work. She attended and participated in groups and therapy, and worked on healthy coping skills and her discharge safety plan. Increased outpatient services were recommended, including therapy and case management. She initially refused, giving many reasons why she did not want additional services, but later agreed to therapy which was scheduled at [facility]. Unfortunately she continued to decline case management and day program/psych rehab. She had a family meeting with the nephrology social worker and her daughter on 05/23/2019, during which they discussed some of her stressors, including that her son is in assisted and has had suicide attempts, social isolation, and her resistance to medications for increased outpatient treatment. Her daughter confirms she does not have access to guns and the patient denied keeping old, discontinued medications at home. She brought in her Trintellix, which was disposed of by the pharmacy prior to discharge. The patient was resistant to treatment recommendations and suggestions about how to address her stressors and symptoms. She frequently spoke to her sister by phone during her hospitalization, and her sister offered for the patient to come and stay with her at discharge. She processed this extensively with staff, and ultimately agreed to go and stay with her sister temporarily for increased support and socialization. Although mood improved and suicidal thoughts resolved, she continued to report suboptimal mood and negative ruminations. She was able to identify social isolation as one of her biggest concerns, and felt this would be addressed by going to stay with her sister. Augmentation medication options were discussed with her on multiple occasions, but she declined to add additional medication. Day of Discharge Assessment The patient states her mood has improved from admission, and continues to deny suicidal ideation. She is eating, sleeping, and taking medications as prescribed. She is performing ADLs independently. She has been an active participant in groups and therapy, and is able to review her discharge safety plan. She continues to endorse worrying that she will not get better or her medications will not work, but shares her positive self talk (that she has gotten better before that medications have helped in the past), and notes that distraction and socialization have been helpful coping skills here. Although she is anxious about discharge, she states "I know I need to do it, it's time." Transition of Care Transition Of Care Record: was reviewed with the patient Advance Directives Advance Directives Information Provided: Yes Advance Directives: No Mental Health Advance Directive: No Advance Directives on File: No Living Will: No Power of Pin Drafter Operator: No Advance Directives Reason:: Declines as Mental Health Visit. Risk Factors Assessment Risk factors were mitigated by admission to the inpatient unit, use of medications to target depressive and anxiety symptoms, psychoeducation about her diagnoses and the recommended treatment, working on healthy coping skills and a discharge safety plan, group attendance and participation, family meeting with her daughter, making plans to go and stay with her sister after discharge to improve realization, recommendations for high level of outpatient care (eventually accepted therapy, but refused case management and day program), and disposal of discontinued medications to reduce access to large amounts of pills/reduce overdose risk. She is reporting improved mood, has consistently denied suicidal thoughts, is eating and sleeping well, taking medications as prescribed, and actively participating in treatment. She is no longer at acute risk of harm to herself, so can be managed as an outpatient at this time. Male: No : Yes Do You Have Access To A Gun?: No Health Problems: No Mental Health Diagnoses: Yes Substance Use Disorders: No Previous Attempt: No Previous Psychiatric Hospitalization: Yes Hopelessness: No Smoker: Yes Protective Factors Assessment : No Responsible for Young Children: No Employed: No Supportive Family: Yes Good Rapport with Provider: Yes Tobacco Cessation at Discharge Tobacco Cessation Medication Prescribed at Discharge: Offered & Pt Refused Total Time Total Time Spent: Greater Than 30 Minutes Total Time Includes: Examination of the patient, Discharge Planning and Medication Reconciliation Discharge Data Lab Results 05/22/19 05/22/19 05/22/19 11:25 11:25 12:27 WBC 9.60 RBC 4.56 Hgb 15.0 Hct 43.0 MCV 94.3 MCH 32.9 MCHC 34.9 RDW Std Deviation 46.6 H RDW Coeff of Donn 13.5 Plt Count 229 MPV 9.7 Immature Gran % (Auto) 0.2 Neut % (Auto) 88.4 Lymph % (Auto) 7.0 [place] % (Auto) 4.0 Eos % (Auto) 0.1 Baso % (Auto) 0.3 Immature Gran # (Auto) 0.02 Neut # (Auto) 8.49 H Lymph # (Auto) 0.67 L [place] # (Auto) 0.38 Eos # (Auto) 0.01 Baso # (Auto) 0.03 Sodium Potassium Chloride Carbon Dioxide Anion Gap BUN Creatinine Est Cr Clr Drug Dosing Est GFR ( Amer) Est GFR (Non-Af Amer) BUN/Creatinine Ratio Glucose Calcium Total Bilirubin AST ALT Alkaline Phosphatase Total Protein Albumin Globulin Albumin/Globulin Ratio TSH Free T4 Urine Color Dark Yellow Urine Appearance Cloudy A Urine pH 5.5 Ur Specific [place] 1.022 Urine Protein Negative Urine Glucose (UA) Negative Urine Ketones 2+ H Urine Blood Negative Urine Nitrite Negative Urine Bilirubin Negative Urine Urobilinogen Negative Ur Leukocyte Esterase Negative Urine WBC (Auto) 5-10 H Urine RBC (Auto) 0-4 U Hyaline Cast (Auto) 1-5 U Epithel Cells (Auto) >30 H Urine Bacteria (Auto) 1+ H Calcium Oxalate Crystal Present A Urine Mucus Present A Urine Yeast Not Reportable Salicylates Urine Opiates Screen Neg Ur Methadone, Qual Neg Acetaminophen Urine Barbiturates Neg Ur Phencyclidine (PCP) Neg U Amphetamin/Meth Scrn Neg MDMA (Ecstasy) Screen Neg U Benzodiazepines Scrn Neg Ur Cocaine Metabolite Neg U Marijuana (THC) Screen Neg Ethyl Alcohol mg/dL 05/22/19 05/22/19 05/22/19 12:27 12:27 12:27 WBC RBC Hgb Hct MCV MCH MCHC RDW Std Deviation RDW Coeff of Donn Plt Count MPV Immature Gran % (Auto) Neut % (Auto) Lymph % (Auto) [place] % (Auto) Eos % (Auto) Baso % (Auto) Immature Gran # (Auto) Neut # (Auto) Lymph # (Auto) [place] # (Auto) Eos # (Auto) Baso # (Auto) Sodium 135 L Potassium 4.2 Chloride 106 Carbon Dioxide 27 Anion Gap 2.0 L BUN 7 Creatinine 0.70 Est Cr Clr Drug Dosing 69.2 Est GFR ( Amer) 99.6 Est GFR (Non-Af Amer) 86.0 BUN/Creatinine Ratio 10.3 Glucose 102 H Calcium 9.2 Total Bilirubin 0.4 AST 15 ALT 17 Alkaline Phosphatase 78 Total Protein 7.0 Albumin 3.6 Globulin 3.4 Albumin/Globulin Ratio 1.1 TSH 1.880 Free T4 1.47 Urine Color Urine Appearance Urine pH Ur Specific [place] Urine Protein Urine Glucose (UA) Urine Ketones Urine Blood Urine Nitrite Urine Bilirubin Urine Urobilinogen Ur Leukocyte Esterase Urine WBC (Auto) Urine RBC (Auto) U Hyaline Cast (Auto) U Epithel Cells (Auto) Urine Bacteria (Auto) Calcium Oxalate Crystal Urine Mucus Urine Yeast Salicylates 4.7 Urine Opiates Screen Ur Methadone, Qual Acetaminophen < 2 L Urine Barbiturates Ur Phencyclidine (PCP) U Amphetamin/Meth Scrn MDMA (Ecstasy) Screen U Benzodiazepines Scrn Ur Cocaine Metabolite U Marijuana (THC) Screen Ethyl Alcohol mg/dL < 3.0 Hospital Course (1) Major depression, melancholic type: 05/23--The patient was admitted to the [facility] ([facility] unit) on q15 min checks (behavioral with suicide precautions) for safety. The patient will participate in group, recreational, and milieu therapies and will be offered additional individual and family sessions as clinically appropriate. Risks/benefits/alternatives reviewed re: restart of Lexapro. Patient agrees. Risks/benefits/alternatives reviewed re: Ativan. She states was taking 0.5 mg up to Bid recently but generally only occasional prn. She is aware can be fall risk in patients over 65 and plan to decrease reliance as Lexapro become effective again 05/24--titrate Lexapro to 20 mg this hs. 05/25 - Continue escitalopram 20mg qHS - Pt reporting only mild improvement in mood, ongoing SI. Remains unable to reliably contract for safety outside of the inpatient setting - Pt considering staying with her sister and [id number] after discharge, but feels as though she will be "a burden" - Pt verbalized she is agreeable with outpatient therapy referral 05/26 - Continue treatment plan as above - SI ongoing, though reportedly improved in frequency and severity - Remains unable to confidently contract for safety outside of inpatient hospital setting - Continue discussion regarding living arrangements after discharge 05/27 - Continue escitalopram 20mg qHS - Worsening mood today, ongoing SI 05/28 - Continue treatment plan as above - Pt reporting mildly improved mood today, denies SI at present - Continues to be unsure about desired living arrangements at discharge, but appears to be better able to process aspects of this decision today 05/29 -Depression, SI, and tearfulness continue. She has been on escitalopram 20 mg daily for 5 days, which was previously effective. Discussed other augmenting agents, including quetiapine, Cytomel, buspirone, and lithium, but she is not interested in trying a new medication. Continue to engage her in therapy and work on healthy coping skills. 05/30 - Encourage patient to talk more with sister and daughter about staying with them briefly after discharge for increased support/socialization. 05/31 - Reporting increased anxiety today related to discharge planning. - Denying SI, and reported willingness to live with sister and [id number] at discharge - Has therapy appointment 06/02 in the afternoon, consider readiness for discharge tomorrow (2) Anxiety disorder, unspecified: SSRI resumed and lorazepam prn continued here. Consider augmenting agent if symptoms do not fully remit, vs IOP/more intensive therapy as an outpatient Mental Health & Subst Abuse Tx Psychiatrist Name of Psychiatrist: Gaston Gordon Psychiatrist's Date of Appointment with Psychiatrist: 06/22/19 Time of Appointment with Psychiatrist: 11:30 am Psychiatric Appointment Comment: [address], [address] Psychiatrist Release of Information: Obtained, Reviewed and Signed Therapist Name of Therapist: Gaston Vega, Therapist's Date of Therapist Appointment: 06/02/19 Time of Therapist Appointment: 1pm Therapy Appointment Comment: [address] Therapist Release of Information: Obtained, Reviewed and Signed Post Discharge Appointments Primary Care Physician Name Of Family Doctor: Chayito Warren Primary [facility] Date of Appointment with PCP: 06/15/19 Time of Appointment with PCP: 10:05am Provider Appointment Comment: [address] [place] [address] , [place] Alfredo [address] Primary Care Release of Information: Obtained, Reviewed and Signed Specialist Name of Specialist: [employer] Phone Number for Specialist: [phone] Time of Appointment with Specialist: Call 2 weeks prior to appointment. Smoking Cessation Counseling Tobacco Cessation Medication Prescribed at Discharge: Offered & Pt Refused Contact Information Discharge Discharge Address: [address] [place] [address] Discharge Plan Discharge Items Patient Disposition: Home - Self-Care Reason For Visit: MENTAL HEALTH EVAL Discharge Diagnosis: Major depressive disorder, recurrent Activity: Per Instructions section Non-emergency contact: Primary Care Provider, Psychiatrist and Therapist Call non-emergency contact if: you have any medication questions and your symptoms worsen Follow-up/Referrals: Holland Warren MD [Primary Care Provider] - Diet: Regular Addtl Attending Provider Instructions: SPECIAL CARE INSTRUCTIONS: 1. Follow through with your scheduled aftercare appointments. If unable to keep an appointment, please call to reschedule. 2. Take your medication only as prescribed. Medication should not be changed or stopped without the approval of your doctor. In the event of worsening symptoms or concerns about side effects, contact your doctor immediately. 3. Utilize new healthy coping skills, anger management skills, and stress management skills learned during your hospitalization. Journal feelings and process them with a support person. Identify stressors or situations that may result in relapse, deterioration or inappropriate behaviors and develop a plan to deal with those issues. 4. If your coping skills are ineffective and you are in crisis, contact your outpatient providers for direction. If unable to reach your providers, please call the CAN HELP LINE AT or go to the closest Emergency Room. 5. Avoid alcohol and un-prescribed drugs. 6. You have been provided with the Mental Health Advance Directives Pamphlet for your review. AFTERCARE APPOINTMENTS: * Please call your insurance company prior to your scheduled appointment to confirm your aftercare providers are covered. Take your insurance information to your appointments. WHO TO CALL AND WHEN: Medical Emergencies: For questions or emergencies related to your hospital stay, please contact the Inpatient Behavioral Health Unit at [phone]. A train starter is on-call 09/12 for the Behavioral Health Unit for emergencies At any time you feel your situation is an emergency, you may also call [phone] immediately. Your Doctors Instructions noted above were prepared by provider Veronica Coleman MD. Pending Studies at Discharge: No Stand-Alone Forms: [employer], Smoking Cessation Medications and DC Order Prescriptions: New escitalopram oxalate [Lexapro] 20 mg tablet 20 mg PO DAILY Qty: 14 RF: 0 Continued levothyroxine [Synthroid] 50 mcg Tablet 50 mcg PO DAILY Qty: 0 RF: 0 lorazepam [Ativan] 0.5 mg tablet 0.5 mg PO BID PRN (Reason: Anxiety) RF: 0 Discontinued Trintellix 10 mg tablet 10 mg PO QPM RF: 0 Discharge Orders: Discharge Order (Routine); Ordered 06/01/19 Ordered By: Veronica Coleman Admission Data Admit Date/Time: 05/22/19 15:25 Attending Provider: Veronica Coleman Admit Provider: Brooke Jackson Primary Care Provider: Holland Warren Other Interventions: PSY Interdisciplinary Discharge Planning Last Done: 06/01/19 08:10 Coding Level of Care Code 61724 D/C day mgmt > 30 min Diagnoses Major depression, melancholic type F32.9 Anxiety disorder, unspecified F41.9
== END 2019-06-01 11:04 | disposition home or self-care (01) | DRG 885 ==
LOC: ED 11:04 → 3S 14:55 → SUATTDRO 15:25

== ENCOUNTER 2022-05-28 14:12 | Inpatient (IN) ==
[2022-05-28] MEDS ORDERED: guaiFENesin 600 MG TABCR PO STA (14:50)
[2022-05-28] MEDS ORDERED: methylPREDNISolone 125 MG/2 ML VIAL IV STA (14:50)
[2022-05-28] MEDS ORDERED: IPRATROPIUM BROMIDE/ALBUTEROL respimat INH INH STA (14:50)
[2022-05-28 15:02] LABS: Basophils # (auto) 0.05 K/uL (0-0.2); Basophils % (auto) 0.6 %; Eosinophils # (auto) 0.03 K/uL (0-0.50); Eosinophils % (auto) 0.3 %; Hematocrit (blood only) 37.5 % (34.1-44.9); Hemoglobin 12.8 g/dl (12.0-16.0); Immature Granulocytes # (auto) 0.03 K/uL (0.00-0.02); Immature Granulocytes % (auto) 0.3 %; Lymphocytes # (auto) 1.17 K/uL (1.2-3.4); Lymphocytes % (auto) 13.1 %; Mean Corpuscular Hemoglobin 32.2 pg (25.0-34.0); Mean Corpuscular Hgb Conc 34.1 g/dL (32.0-36.0); Mean Corpuscular Volume 94.5 fL (80.0-100.0); Mean Platelet Volume 9.7 fL (9.4-12.3); Monocytes % (auto) 16.8 %; Neutrophils # (auto) 6.13 K/uL (1.4-6.5); Neutrophils % (auto) 68.9 %; Platelet Count 219 K/uL (130-400); RDW Coefficient of Variation 13.2 % (11.5-14.5); Red Blood Count 3.97 M/uL (3.93-5.22); White Blood Count 8.91 K/ul (4.8-10.8)
[2022-05-28 15:23] LABS: Albumin Globulin Ratio 1.1 (0.9-2); Albumin Level 3.4 gm/dl (3.4-5.0); BUN Creatinine Ratio 11.5 (10-20); Bilirubin,Total 0.5 mg/dl (0.2-1.0); Calcium 9.3 mg/dl (8.5-10.1); Creatinine Clr Calc Pharmacy 90.1 ml/min; Est GFR (African American) 107.6 ml/min; Est GFR (Non-African American) 92.8 ml/min; Globulin 3.1 gm/dl (2.5-4.0); Magnesium 1.7 mg/dl (1.7-2.4); Phosphorus 3.1 mg/dl (2.5-4.9); Potassium 3.5 mmol/L (3.5-5.1); Total Protein 6.5 gm/dl (6.0-8.3)
[2022-05-28 15:28] LABS: Troponin I High Sensitivity 16.5 pg/ml (0-14)
--- NOTE | 2022-05-28 15:32 | XRay Report ---
XR chest 1V portable CLINICAL HISTORY: Shortness of breath. COMPARISON STUDY: No previous studies for comparison. FINDINGS: Lung volumes are normal. There is no pneumothorax. Trace bilateral pleural effusions are no jasper. There is probable mild pulmonary edema. Cardiac size is within normal limits. There is no consol idation. IMPRESSION: Suspected mild interstitial pulmonary edema with trace bilateral pleural effusions. ACT 112: Negative or not required by law. Electronically signed by: Shady Leyva M.D. 05/28/2022 3:30 PM
--- NOTE | 2022-05-28 15:59 | Electrocardiogram Report ---
Test Reason : Blood Pressure : / mmHG Vent. Rate : 070 BPM Atrial Rate : 070 BPM P-R Int : 118 ms QRS Dur : 096 ms QT Int : 440 ms P-R-T Axes : 020 056 062 degrees QTc Int : 475 ms Poor data quality, interpretation may be adversely affected Normal sinus rhythm Normal ECG No previous ECGs available Confirmed by Shay Gomes ([id number]) on 05/28/2022 3:59:00 PM Referred By: Confirmed By:Shay Gomes
[2022-05-28 16:01] LABS: Influenza A virus by PCR Negative (Neg); Influenza B virus by PCR Negative (Neg); RSV by PCR Negative (Neg); SARS CoV2 RNA(COVID-19) Ceph NEGATIVE (Negative)
[2022-05-28] MEDS ORDERED: ACETAMINOPHEN 325 MG TAB PO PRN (16:32)
[2022-05-28] MEDS ORDERED: POLYETHYLENE (MIRALAX) 17 GM PACK PO PRN (16:32)
[2022-05-28] MEDS ORDERED: ONDANSETRON INJ 2 MG/ML 2 ML VIAL IV PRN (16:32)
[2022-05-28] MEDS ORDERED: MAGNESIUM HYDROXIDE SUSP 30 ML UDC PO PRN (16:32)
--- NOTE | 2022-05-28 17:12 | History & Physical Report ---
Date of Service May 28, 2022 Assessment & Plan (1) COPD with acute exacerbation: (2) Tobacco use: (3) Hypoxia: Plan: SpO2 77% on arrival CXR: Pulmonary edema with bilateral pleural effusions without consolidation Troponin 16.5; will trend. No leukocytosis on labs WBC 8.91 Chest CTA pending Negative for Covid, Flu, and RSV Active smoker: 1.5 ppd with no intent to quit Would like Nicotine patch while admitted Received 1 neb in ED; Order nebs QID and Q2 PRN Last ECHO 2018 per EMR: EF 60-64%, Grade I diastolic dysfunction and normal wall motion; will repeat ECHO while here Sputum Culture ordered Obtain VBG Decreased PO intake; would likely benefit from gentle fluid rehydration. euvolemic on exam. CXR in AM (4) Anxiety disorder, unspecified: (5) Major depression, melancholic type: Plan: Follows with Dr. Gordon Psych in [place] Has had SI in the past with thoughts of harming herself but no plan She has made comments per outpatient review of notes that she "hopes she dies" Declines in discussing with Psychiatry here; has good rapport with Dr. Gordon and has follow up scheduled in 2 weeks. No current SI Takes mirtazapine nightly; this was recently increased to 45 mg; continue Takes Faviola and Dr. Irvin and is working to decrease dose; was 10 mg now 5 mg; continue Takes Lexapro; continue Takes Ativan 0.5 mg p.o. 3 times PRN; continue (6) Hypothyroidism: Plan: Takes levothyroxine; continue Check TSH (7) Pneumonia: Plan Disposition: PCP: Dr. Warren Code status: DNR/DNI VTE Prophylaxis: Herparin SQ A total of 77 minutes was spent with greater than 50% of that time personally reviewing all current laboratory work and diagnostic imaging studies obtained in the ED. Additionally, I was able to review the patients past medication reconciliation and history with direct visualization in the patients chart. Included in the time above, a portion of that time was spent assessing the patient while discussing and collaborating with specialists, if necessary, and making medical decisions regarding orders to be placed. All of the aforemention ed completed while collaborating with Dr. Castro for a full treatment plan. Please see her addendum for further details. History of Present Illness Chief Complaint: Shortness of breath Primary Care Provider: Holland Warren MD Ms. Mcmanus is a 76-year-old female who presented to the [facility] after recommendation by [facility] cardiology [place] where she presented today for an outpatient appointment and her SPO2 was 77%. Patient has reportedly been feeling ill since 05/24 with shortness of breath, fever and productive cough with thick muhammad sputum. She reports not having an appetite over the last few days with poor p.o. intake. Patient is vaccinated against flu and COVID. Chest x-ray reveals lung volumes being normal without pneumothorax. Trace bilateral pleural effusions were noted with probable mild pulmonary edema and no consolidation. Patient reports she is an active smoker 1.5 PPD with no intent of quitting. PFTs from 2016 FEV1 72. Troponin level 16.5 slightly elevated will trend x1 however do not suspect that this is ACS related rather ischemic demand due to underlying illness. Chest CTA was obtained in the ED to rule out PE. Patient did test negative for COVID, flu and RSV. She did receive a dose of methylprednisone in ED. In EMR review her las ECHO was 2019 EF 60 to 64% with grade 1 diastolic dysfunction and normal wall motion. BNP 88 consider repeat echo if no improvement however do not suspect this to be CHF in nature. Additional past medical history includes anxiety, depression, COPD not on oxygen, hypothyroidism, OA, and gout. Patient follows with Dr. Grimes psychiatry in [place] for suicidal ideation and MDD. Medication adjustments have been made recently and patient denies any current SI or SA. She declines discussing with psychiatry or behavioral health liaison here and reports that she has good rapport with Dr. Irvin and and has a follow-up scheduled within 2 weeks. Patient sitting upright in her hospital bed in no apparent distress SPO2 ranges 88 to 90% on 3 L. Patient AAO x4 and able to have full meaningful conversation and able to speak in complete sentences without dyspnea. She is on 3 L nasal cannula with inspiratory and expiratory wheezes with scattered rhonchi upon auscultation. Patient denies headache, dizziness, chest pain, palpitations, vomiting, diarrhea, recent travel, falls or trauma. Patient is receptive to admission for further evaluation and management. Please see A/P for further details. Allergies Allergy/AdvReac Type Severity Reaction Status Date / Time Sulfa (Sulfonamide Allergy Intermediate Rash Verified 05/28/22 16:46 Antibiotics) Home Medications Medication Instructions Recorded Confirmed Type levothyroxine 50 mcg tablet 50 mcg PO DAILY #0 tabs 07/11/16 05/28/22 History (Synthroid) lorazepam 0.5 mg tablet (Ativan) 0.5 mg PO TID PRN Anxiety 05/22/19 05/28/22 History escitalopram oxalate 20 mg tablet 20 mg PO DAILY #14 tabs 06/01/19 05/28/22 Rx (Lexapro) albuterol sulfate 90 mcg/actuation 1 puff inhalation TID PRN SOB 05/28/22 05/28/22 History aerosol inhaler aripiprazole 10 mg tablet 10 mg PO HS 05/28/22 05/28/22 History mirtazapine 45 mg tablet 45 mg PO HS 05/28/22 05/28/22 History Past Med/Surg History Medical History Anxiety disorder, unspecified COPD with acute exacerbation Depression Hypothyroidism Hypoxia Tobacco use Surgical History (Updated 05/28/22 @ 17:55 by VLAD Chawla) History of cholecystectomy History of colonoscopy History of colposcopy Family History (Updated 05/28/22 @ 17:52 by VLAD Chawla) Other Depression Diabetes Dyslipidemia Hypertension Social History Smoking Status: Current every day smoker Preferred Language: [place] Communication Ability: Effective [employer] Vehicle [employer] Required: No Beliefs That Will Affect Care: None Feels Safe at Home: Yes Assistive Devices: Denture - Upper, Denture - Lower and Glasses Review of Systems Review of Systems: Neuro: (-) Falls, trauma, slurred speech HEENT: (-) SHORE, dizziness, dysphagia, visual or auditory changes (+) cough, fever CV: (-) CP, palpitations, swelling Resp: (+) SOB GI: (-) appetite changes, N/V/D, bowel changes : (-) urinary changes Skin: (-) rashes Psych: (+) anxiety, depression Physical Exam Physical Exam: Neuro: AAOx4, PERRLA, no aphagia, memory changes, CNII-XII grossly intact HEENT: head normocephalic, moist mucus membranes. numerous plaques noted posterior oral cavity with erythema CV: S1/S2, (-) M/G/R, (-) edema, cap refill < 3 seconds Resp: 3LNC. I/E wheezes with scattered rhonchi GI: Abdomen S/NT/ND, Ax4 bowel sounds, (-) CVA tenderness Musculoskeletal: 5/5 B/L UE strength, 5/5 B/L LE strength. No gait disturbance Skin: (-) rashes , (-) erythema. Psych: euthymic mood Results & Data Results & Data ([facility]) Vital Signs (Past 12 Hours) Vital Signs Temp Pulse Pulse Resp BP BP Pulse Ox 05/28/22 16:00 72 132/65 94 05/28/22 14:30 98 05/28/22 14:03 97 05/28/22 14:03 37.2 C 70 24 137/67 97 05/28/22 14:03 O2 Del Method O2 Flow Rate 05/28/22 16:00 Nasal Cannula 2 05/28/22 14:30 Nasal Cannula 2 05/28/22 14:03 Nasal Cannula 2 05/28/22 14:03 Nasal Cannula 2 05/28/22 14:03 Nasal Cannula 2 Laboratory Results Short CBC 05/28/22 Range/Units 14:45 WBC 8.91 (4.8-10.8) K/ul Hgb 12.8 (12.0-16.0) g/dl Hct 37.5 (34.1-44.9) % Plt Count 219 (130-400) K/uL BMP 05/28/22 14:45 Sodium 132 L Potassium 3.5 Chloride 94 L Carbon Dioxide 31 BUN 6 Creatinine 0.52 L Glucose 103 H Calcium 9.3 Liver Function 05/28/22 Range/Units 14:45 Total Bilirubin 0.5 (0.2-1.0) mg/dl AST 22 (13-39) U/L ALT 16 (7-52) U/L Alkaline Phosphatase 74 (34-104) U/L Albumin 3.4 (3.4-5.0) gm/dl Diagnostic Findings Chest X-Ray 05/28/22 14:30 XR chest 1V portable CLINICAL HISTORY: Shortness of breath. COMPARISON STUDY: No previous studies for comparison. FINDINGS: Lung volumes are normal. There is no pneumothorax. Trace bilateral pleural effusions are noted. There is probable mild pulmonary edema. Cardiac size is within normal limits. There is no consolidation. IMPRESSION: Suspected mild interstitial pulmonary edema with trace bilateral pleural effusions. ACT 112: Negative or not required by law. Electronically signed by: Shady Leyva M.D. 05/28/2022 3:30 PM ECG Additional Comments: NSR Code Status & VTE Plan Code Status DNR/DNI in the event of cardiac or respiratory arrest VTE Prophylaxis Plan VTE Prophylaxis will be ordered: Yes Supervising Physician Co-Signing Physician Notes I have seen and examined the patient and have discussed the case with the provider above. I agree with the assessment and plan as stated with the following exceptions. Patient is a 76-year-old female smoker presenting with progressive shortness of breath, cough and productive sputum over the past several days consistent with COPD exacerbation. She was found to be hypoxic at her PCP appointment which had been scheduled for regular checkup. She is feeling better since starting on steroids and a breathing treatment this evening. She denies ever being intubated or hospitalized for COPD exacerbation in the past. She denies any use of steroids in the past for rescue. She tells me she does not have a nebulizer at home and takes albuterol as needed. She is contemplating quitting smoking but feels it is unrealistic to quit smoking altogether. She is currently smoking 1.5 packs/day. She then tells me that her sister had COPD and from it but had never smoked a day in her life. On physical exam she appears well-nourished well-developed and comfortable with no evidence of increased respiratory effort. Lungs with expiratory wheezing in all steiner and no crackles or rails throughout. Cardiac exam reveals S1/S2 with no evidence of murmurs gallops or rubs. There is no peripheral edema and extremities are warm and well-perfused. Skin is warm and dry. There is no gross focal neurologic deficit and she is moving all extremities easily. She is mentating clearly. Work-up reveals a normal CBC with a differential revealing a monocytosis. VBG with a PCO2 of 62 and a pH of 7.36. Sodium is slightly low at 132 and potassium is normal at 3.5. There is no lactate elevation and highly sensitive troponin w ent from 16.5-7.5 which is within normal limits. Procalcitonin is 0.11. There is evidence of a possible urinary tract infection on urinalysis and nasopharyngeal viral swab is negative. Chest CTA reveals no evidence of PE. There is bibasilar airspace consolidation right greater than left and diffuse peribronchial thickening suggestive of bronchitis. Overall this is a 76-year-old female presenting with respiratory symptoms consistent with COPD exacerbation. She is an active heavy smoker with evidence of emphysema on imaging. She is continuing to smoke but understands the importance of smoking cessation. Agree with steroid therapy for COPD exacerbation along with antibiotics. Notably there is a urinary tract infection present and possible basal pneumonia seen better on CT chest. We will continue with Rocephin empirically pending urine culture and to cover possible pneumonia and will also add doxycycline for atypical coverage. Would consider starting her on once daily Incruse Ellipta on discharge, checking this with her insurance prior to discharging her on it. For now she is on Combivent. Matthew, DO
[2022-05-28] MEDS ORDERED: OPTIRAY 320 500ml IV ONE (17:37)
--- NOTE | 2022-05-28 17:58 | CT Scan Report ---
CT ANGIOGRAM OF THE CHEST CLINICAL HISTORY: Dyspnea. Hypoxia. COMPARISON STUDY: Chest x-ray dated 05/28/2022. TECHNIQUE: Following the IV administration of 117 cc of Optiray 320, CT angiogram of the chest was pe rformed from the upper abdomen to the thoracic inlet utilizing the pulmonary embolus protocol. Images are reviewed in the axial, sagittal, and coronal planes. 3-D MIPS images are created and assessed. I V contrast was administered without complication. A dose lowering technique was utilized adhering to the principles of ALARA. CT DOSE: 389.27 mGy.cm FINDINGS: Thyroid: Mildly atrophic and heterogeneous. Thoracic aorta: There is atherosclerotic calcification of the thoracic aorta, which is normal in dori jaja and demonstrates standard 3-vessel arch anatomy. No dissection is seen. Pulmonary vasculature: The pulmonary trunk is normal in caliber. There are no filling defects identif ied in main, lobar, or segmental pulmonary branches to suggest pulmonary embolus. Heart: The heart is normal in size and without pericardial effusion. Lungs and pleural spaces: Emphysematous change is observed. The trachea and central airways are clear . There is diffuse peribronchial thickening, greatest in the lower lobes. There is bibasilar airspace consolidation, right greater than left. No pleural effusion is identified. Mediastinum: There is no mediastinal lymphadenopathy. Millie: Clear. Axillae: There is no axillary lymphadenopathy. Upper abdomen: Cholecystectomy clips are noted. Partially visualized upper abdominal viscera is other bowen within normal limits. Skeletal structures: The skeletal structures are osteopenic. Degenerative change and hyperkyphosis is noted in the thoracic spine. No lytic or blastic bony lesions are seen. Arthritic change is noted in the shoulders. IMPRESSION: 1. There is no evidence of pulmonary embolus in the main, lobar, or segmental pulmonary arteries. 2. Emphysema. 3. There is bibasilar airspace consolidation, right greater than left. Correlate clinically for evide nce of pneumonia/aspiration pneumonitis. Radiographic follow-up to resolution is recommended. Follow- up radiographs should include both PA and lateral views. 4. Diffuse peribronchial thickening suggests bronchitis/reactive airway disease. 5. Additional findings as above. ACT 112: Negative or not required by law. Electronically signed by: Adrián Suero M.D. 05/28/2022 5:56 PM
[2022-05-28] MEDS ORDERED: SODIUM CHLORIDE 0.9% 500 ML IV SCH (18:18)
[2022-05-28] MEDS: cefTRIAXone SODIUM 2,000 MG in DEXTROSE 5% 50 ML IV SCH (18:45)
[2022-05-28] MEDS: NICOTINE 14 MG/24 HR PATCH TD SCH (18:46)
[2022-05-28] MEDS: ALBUT/IPRATROP 3MG/0.5MG NEB 3 ML VIAL NEB SCH (19:34)
[2022-05-28 19:37] LABS: Appearance Urine Clear (Clear); Bacteria Urine Automated 2+ (Negative); Bilirubin Urine Negative (Negative); Blood Urine 1+ (Negative); Cast Urine Automated 0 /lpf (0-5); Color Urine Yellow; Glucose Urine UA Negative (Negative); Ketones Urine Trace (Negative); Leukocyte Esterase Urine 1+ (Negative); Nitrite Urine Negative (Negative); Protein Urine Negative (Negative); RBC Urine Automated 0-4 /hpf (0-4); Specific Gravity Urine > 1.045 (1.000-1.030); Urobilinogen Urine Negative (Negative); WBC Urine Automated >30 /hpf (0-5)
[2022-05-28 20:14] LABS: Base Excess VBG 7.4 mEq/L; HCO3 VBG 35 mmol/L; Oxygen Saturation VBG 75.9 %; PCO2 VBG 62 mmHg (38-50); PO2 VBG 45 mmHg; pH VBG 7.36 (7.36-7.41)
[2022-05-28] MEDS: MIRTAZAPINE TAB 15 MG TAB PO SCH (20:16)
[2022-05-28] MEDS: ARIPiprazole 10 MG TAB PO SCH (20:16)
[2022-05-28] MEDS ORDERED: GLUCAGON FOR INJ 1 MG VIAL SQ PRN (21:11)
[2022-05-28] MEDS ORDERED: GLUCOSE 40% GEL 15 GM TUBE PO PRN (21:11)
[2022-05-28] MEDS ORDERED: GLUCOSE 10 TAB/TUBE PO PRN (21:11)
[2022-05-28] MEDS ORDERED: DEXTROSE 50% 50 ML SYRINGE IV PRN (21:11)
[2022-05-28] MEDS ORDERED: CARBOHYDRATES FOR HYPOGLYCEMIA PO PRN (21:11)
--- NOTE | 2022-05-28 21:50 | Emergency Department Note ---
Impression & Plan COPD with acute exacerbation, Hypoxia, Pneumonia ED Provider Note NAME: LANDON CAICEDO AGE: 76 SEX: F ARRIVES VIA: Ambulance INFORMANT: Patient ED PROVIDER(S): Deng Alcala MD CHIEF COMPLAINT: SOB, hypoxia, referred. PLAN: Disposition: Admit MEDICAL DECISION MAKING: The patient is a pleasant 76-year-old woman with a past medical history of COPD who presents to the emergency department via EMS referred from her outpatient clinic for evaluation of hypoxia down to 70% on room air with shortness of breath in the setting of the patient having increased cough congestion with thick sputum production over the past several days. She denies nausea, vomiting, diarrhea or urinary symptoms. On arrival the patient is in no acute distress, afebrile stable vital signs. On exam the patient has wheezing rhonchi bilateral lung steinre. She has no significant increased work of breathing. She has scant bilateral lower extremity edema which she reports is her baseline. EKG without overt acute ischemia. Chest x-ray with question of interstitial pulmonary edema and small pleural effusion. WBC, H/H and platelets within normal limits. Chemistry without metabolic acidosis. Electrolytes and LFTs unremarkable. High-sensitivity troponin 16.5, nonspecific and in setting of the patient's symptoms. Lipase not elevated. Procalcitonin is not elevated. UA demonstrates WBCs and 2+ bacteria albeit with 5-[address] of the chest was performed and demonstrates bibasilar opacities suspicious for pneumonia. BNP was not elevated. Patient was treated initially with steroids and Combivent. Plan for admission for further management for acute respiratory failure with hypoxia in setting of COPD. Case was discussed with Chayito Marx, with Dr. Matthew Stratton hospitalist who will evaluate the patient for admission. Further manag ement per admitting team. Triage Nursing notes reviewed and agree them. Prior medical records reviewed Vital Signs: reviewed Differential diagnosis: Reactive airway disease, pneumonia, pneumothorax, COPD, CHF, infections, cardiac ischemia, pulmonary embolism, musculoskeletal, gastrointestinal, as well as other pathologies. ER treatment provided: See below. Diagnostics interpreted by me: ECG: NSR, 70 bpm, no ectopy, no overt ST elevation or depression. Cardiac Monitoring: An order for continuous cardiac monitoring was placed and demonstrated NSR, 70 bpm, no ectopy. Laboratory studies: See below Imaging studies: See below Consultation(s): Case was discussed with Chayito Marx, with Dr. Matthew Stratton hospitalist who will evaluate the patient for admission. HPI: The patient is a pleasant 76-year-old woman with a past medical history of COPD who presents to the emergency department via EMS referred from her outpatient clinic for evaluation of hypoxia down to 70% on room air with short ness of breath in the setting of the patient having increased cough congestion with thick sputum production over the past several days. She denies nausea, vomiting, diarrhea or urinary symptoms. ROS: See above HPI for pertinent positives & negatives. A total of 10 systems reviewed and were otherwise negative. VITALS:See Below PHYSICAL EXAMINATION: GENERAL: Awake, alert, mildly dyspneic-appearing, in no distress HENT: Normocephalic, atraumatic. Oropharynx unremarkable. EYES: Normal conjunctiva. Sclera non-icteric. NECK: Supple. No nuchal rigidity. FROM. No JVD. RESPIRATORY: Wheezing rhonchi bilateral lung steiner. CARDIAC: Regular rate, normal rhythm. Extremities warm and well perfused. Pulses equal. ABDOMEN: Soft, non-distended. No tenderness to palpation. No rebound or guarding. No masses. RECTAL: Deferred. MUSCULOSKELETAL: Chest examination reveals no tenderness. The back is symmetrical on inspection without obvious abnormality. There is no CVA tenderness to palpation. No joint edema. LOWER EXTREMITIES: Calves are equal size bilaterally and non-tender. Scant BLE edema. No discoloration. NEURO: Normal sensorium. No sensory or motor deficits noted. SKIN: No rash or jaundice noted. ED COURSE: Critical Care: I have personally spent greater than 35 minutes of critical care time in the direct management of this patient. This includes bedside care, interpretation of diagnostic studies, and testing, discussion with consultants, patient, and family members, and other required patient management activities. This [] minutes is in excess of all separately billable procedures. 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 Beliefs That Will Affect Care: None Current Living Situation: Alone Other Information That Helps Us Care for You: No Feels Safe at Home: Yes Safety Concerns: Feels Safe At This Time Assistive Devices: Denture - Upper, Denture - Lower and Glasses Allergies Allergies Allergy/AdvReac Type Severity Reaction Status Date / Time Sulfa (Sulfonamide Allergy Intermediate Rash Verified 05/28/22 16:46 Antibiotics) Home Meds Home Medications Medication Instructions Recorded Confirmed levothyroxine 50 mcg tablet 50 mcg PO DAILY #0 tabs 07/11/16 05/28/22 (Synthroid) lorazepam 0.5 mg tablet (Ativan) 0.5 mg PO TID PRN Anxiety 05/22/19 05/28/22 albuterol sulfate 90 mcg/actuation 1 puff inhalation TID PRN SOB 05/28/22 05/28/22 aerosol inhaler aripiprazole 10 mg tablet 10 mg PO HS 05/28/22 05/28/22 mirtazapine 45 mg tablet 45 mg PO HS 05/28/22 05/28/22 Previous Rx's Medication Instructions Recorded escitalopram oxalate 20 mg tablet 20 mg PO DAILY #14 tabs 06/01/19 (Lexapro) Results & Data (ED) Vital Signs Vital Signs - 24 hr 05/28/22 14:03 05/28/22 14:03 05/28/22 14:03 Temperature 37.2 C Temperature Source Oral Pulse Rate 70 Pulse Rate [Right Finger] Respiratory Rate 24 Respiratory Effort / Characteristics Non-Labored Spontaneous Non-Labored Respiratory Depth Normal Normal Respiratory Pattern Regular Blood Pressure 137/67 Blood Pressure [Right Arm] Blood Pressure Mean 90 Blood Pressure Mean [Right Arm] Pulse Oximetry 97 97 Oxygen Delivery Method Nasal Cannula Nasal Cannula Nasal Cannula Oxygen Flow Rate 2 2 2 Sepsis Recent Fever Within 48 Hours Yes Sepsis New/Unexplained Change in Mental Status No Sepsis Action Taken by Nursing No Action Required 05/28/22 14:30 05/28/22 16:00 Temperature Temperature Source Pulse Rate Pulse Rate [Right Finger] 72 Respiratory Rate Respiratory Effort / Characteristics Non-Labored Respiratory Depth Normal Respiratory Pattern Regular Blood Pressure Blood Pressure [Right Arm] 132/65 Blood Pressure Mean Blood Pressure Mean [Right Arm] 87 Pulse Oximetry 98 94 Oxygen Delivery Method Nasal Cannula Nasal Cannula Oxygen Flow Rate 2 4 Sepsis Recent Fever Within 48 Hours Sepsis New/Unexplained Change in Mental Status Sepsis Action Taken by Nursing Laboratory Data Attestation: I reviewed the patient's lab results. 05/28/22 14:45 05/28/22 14:45 Lab Results 05/28/22 05/28/22 05/28/22 Range/Units 14:45 14:45 14:45 WBC 8.91 (4.8-10.8) K/ul RBC 3.97 (3.93-5.22) M/uL Hgb 12.8 (12.0-16.0) g/dl Hct 37.5 (34.1-44.9) % MCV 94.5 (80.0-100.0) fL MCH 32.2 (25.0-34.0) pg MCHC 34.1 (32.0-36.0) g/dL RDW Std Deviation 46.0 (36.4-46.3) fL RDW Coeff of Donn 13.2 (11.5-14.5) % Plt Count 219 (130-400) K/uL MPV 9.7 (9.4-12.3) fL Immature Gran % (Auto) 0.3 % Neut % (Auto) 68.9 % Lymph % (Auto) 13.1 % Coleman % (Auto) 16.8 % Eos % (Auto) 0.3 % Baso % (Auto) 0.6 % Neut # (Auto) 6.13 (1.4-6.5) K/uL Lymph # (Auto) 1.17 L (1.2-3.4) K/uL Coleman # (Auto) 1.50 H (0.24-0.82) K/uL Eos # (Auto) 0.03 (0-0.50) K/uL Baso # (Auto) 0.05 (0-0.2) K/uL Immature Gran # (Auto) 0.03 H (0.00-0.02) K/uL Sodium 132 L (136-145) mmol/L Potassium 3.5 (3.5-5.1) mmol/L Chloride 94 L (98-107) mmol/L Carbon Dioxide 31 (21-32) mmol/L Anion Gap 7 (3-11) BUN 6 (6-23) mg/dl Creatinine 0.52 L (0.6-1.2) mg/dl Est Cr Clr Drug Dosing 90.1 ml/min Est GFR ( Amer) 107.6 ml/min Est GFR (Non-Af Amer) 92.8 ml/min BUN/Creatinine Ratio 11.5 (10-20) Glucose 103 H (70-99(Fasting)) mg/dl Calcium 9.3 (8.5-10.1) mg/dl Phosphorus 3.1 (2.5-4.9) mg/dl Magnesium 1.7 (1.7-2.4) mg/dl Total Bilirubin 0.5 (0.2-1.0) mg/dl AST 22 (13-39) U/L ALT 16 (7-52) U/L Alkaline Phosphatase 74 (34-104) U/L Troponin I High Sens 16.5 H (0-14) pg/ml Total Protein 6.5 (6.0-8.3) gm/dl Albumin 3.4 (3.4-5.0) gm/dl Globulin 3.1 (2.5-4.0) gm/dl Albumin/Globulin Ratio 1.1 (0.9-2) Lipase 10 L (11-82) U/L Procalcitonin (0-0.5) ng/ml SARS-CoV-2 (PCR) NEGATIVE (Negative) Influenza Type A (PCR) Negative (Neg) Influenza Type B (PCR) Negative (Neg) RSV (RT-PCR) Negative (Neg) 05/28/22 Range/Units 14:45 WBC (4.8-10.8) K/ul RBC (3.93-5.22) M/uL Hgb (12.0-16.0) g/dl Hct (34.1-44.9) % MCV (80.0-100.0) fL MCH (25.0-34.0) pg MCHC (32.0-36.0) g/dL RDW Std Deviation (36.4-46.3) fL RDW Coeff of Donn (11.5-14.5) % Plt Count (130-400) K/uL MPV (9.4-12.3) fL Immature Gran % (Auto) % Neut % (Auto) % Lymph % (Auto) % Coleman % (Auto) % Eos % (Auto) % Baso % (Auto) % Neut # (Auto) (1.4-6.5) K/uL Lymph # (Auto) (1.2-3.4) K/uL Coleman # (Auto) (0.24-0.82) K/uL Eos # (Auto) (0-0.50) K/uL Baso # (Auto) (0-0.2) K/uL Immature Gran # (Auto) (0.00-0.02) K/uL Sodium (136-145) mmol/L Potassium (3.5-5.1) mmol/L Chloride (98-107) mmol/L Carbon Dioxide (21-32) mmol/L Anion Gap (3-11) BUN (6-23) mg/dl Creatinine (0.6-1.2) mg/dl Est Cr Clr Drug Dosing ml/min Est GFR ( Amer) ml/min Est GFR (Non-Af Amer) ml/min BUN/Creatinine Ratio (10-20) Glucose (70-99(Fasting)) mg/dl Calcium (8.5-10.1) mg/dl Phosphorus (2.5-4.9) mg/dl Magnesium (1.7-2.4) mg/dl Total Bilirubin (0.2-1.0) mg/dl AST (13-39) U/L ALT (7-52) U/L Alkaline Phosphatase (34-104) U/L Troponin I High Sens (0-14) pg/ml Total Protein (6.0-8.3) gm/dl Albumin (3.4-5.0) gm/dl Globulin (2.5-4.0) gm/dl Albumin/Globulin Ratio (0.9-2) Lipase (11-82) U/L Procalcitonin 0.11 (0-0.5) ng/ml SARS-CoV-2 (PCR) (Negative) Influenza Type A (PCR) (Neg) Influenza Type B (PCR) (Neg) RSV (RT-PCR) (Neg) Administered Medications Albuterol (Albut/Ipratrop 3mg/0.5mg Neb 3 Ml Vial) 3 ml NEB QIDR [facility]; Protocol Stop: 06/27/22 18:59 Last Admin: 05/28/22 19:34 Dose: 3 ml Documented By: ISABELLE Aripiprazole (Aripiprazole 10 Mg Tab) 10 mg PO [facility] Stop: 06/27/22 20:59 Last Admin: 05/28/22 20:16 Dose: 10 mg Documented By: SHIRLEY Doxycycline Hyclate (Doxycycline Hyclate 100 Mg Cap) 100 mg PO BID [facility] Stop: 06/04/22 21:14 Last Admin: 05/28/22 22:19 Dose: 100 mg Documented By: SHIRLEY Ceftriaxone Sodium 2,000 mg/ (Dextrose) 70 mls @ 100 mls/hr IV Q24H [facility]; Protocol Stop: 06/05/22 18:29 Last Infusion: 05/28/22 19:44 Dose: 0 mls/hr Documented By: Admin: 05/28/22 18:45 Dose: 100 mls/hr Documented By: AARON Sodium Chloride (Nss) 500 mls @ 80 mls/hr IV .Q6H15M [facility] Stop: 05/29/22 00:32 Last Admin: 05/28/22 18:39 Dose: 80 mls/hr Documented By: AARON Methylprednisolone 40 mg/ (Syringe) 0.64 mls @ 1.5 mls/min IV Q8H [facility] Stop: 06/28/22 00:00 Last Admin: 05/28/22 23:23 Dose: 1.5 mls/min Documented By: SHIRLEY Mirtazapine (Mirtazapine Tab 15 Mg Tab) 45 mg PO [facility] Stop: 06/27/22 20:59 Last Admin: 05/28/22 20:16 Dose: 45 mg Documented By: SHIRLEY Nicotine (Nicotine 14 Mg/24 Hr Patch) 14 mg TD [facility] Stop: 06/27/22 17:14 Last Admin: 05/28/22 18:46 Dose: 14 mg Documented By: AARON Discontinued Medications Albuterol (Ipratropium Nixon/Albuterol Respimat Inh) 2 puffs INH NOW STA Stop: 05/28/22 14:51 Last Admin: 05/28/22 15:19 Dose: 2 puffs Documented By: GRANT Guaifenesin (Guaifenesin 600 Mg Tabcr) 600 mg PO NOW STA Stop: 05/28/22 14:51 Last Admin: 05/28/22 15:20 Dose: 600 mg Documented By: GRANT Ioversol (Optiray 320 500ml) 117 ml IV ONCE ONE Stop: 05/28/22 17:38 Last Admin: 05/28/22 17:38 Dose: 117 ml Documented By: KEVIN Methylprednisolone (Methylprednisolone 125 Mg/2 Ml Vial) 125 mg IV NOW STA Stop: 05/28/22 14:51 Last Admin: 05/28/22 15:20 Dose: 125 mg Documented By: GRANT Imaging Data Radiologist's Impression: Chest X-Ray 05/28/22 14:30 XR chest 1V portable CLINICAL HISTORY: Shortness of breath. COMPARISON STUDY: No previous studies for comparison. FINDINGS: Lung volumes are normal. There is no pneumothorax. Trace bilateral pleural effusions are noted. There is probable mild pulmonary edema. Cardiac size is within normal limits. There is no consolidation. IMPRESSION: Suspected mild interstitial pulmonary edema with trace bilateral pleural effusions. ACT 112: Negative or not required by law. Electronically signed by: Shady Leyva M.D. 05/28/2022 3:30 PM Chest CTA 05/28/22 16:17 CT ANGIOGRAM OF THE CHEST CLINICAL HISTORY: Dyspnea. Hypoxia. COMPARISON STUDY: Chest x-ray dated 05/28/2022. TECHNIQUE: Following the IV administration of 117 cc of Optiray 320, CT angiogram of the chest was performed from the upper abdomen to the thoracic inlet utilizing the pulmonary embolus protocol. Images are reviewed in the axial, sagittal, and coronal planes. 3-D MIPS images are created and assessed. IV contrast was administered without complication. A dose lowering technique was utilized adhering to the principles of ALARA. CT DOSE: 389.27 mGy.cm FINDINGS: Thyroid: Mildly atrophic and heterogeneous. Thoracic aorta: There is atherosclerotic calcification of the thoracic aorta, which is normal in caliber and demonstrates standard 3-vessel arch anatomy. No dissection is seen. Pulmonary vasculature: The pulmonary trunk is normal in caliber. There are no filling defects identified in main, lobar, or segmental pulmonary branches to suggest pulmonary embolus. Heart: The heart is normal in size and without pericardial effusion. Lungs and pleural spaces: Emphysematous change is observed. The trachea and central airways are clear. There is diffuse peribronchial thickening, greatest in the lower lobes. There is bibasilar airspace consolidation, right greater than left. No pleural effusion is identified. Mediastinum: There is no mediastinal lymphadenopathy. Millie: Clear. Axillae: There is no axillary lymphadenopathy. Upper abdomen: Cholecystectomy clips are noted. Partially visualized upper abdominal viscera is otherwise within normal limits. Skeletal structures: The skeletal structures are osteopenic. Degenerative change and hyperkyphosis is noted in the thoracic spine. No lytic or blastic bony lesions are seen. Arthritic change is noted in the shoulders. IMPRESSION: 1. There is no evidence of pulmonary embolus in the main, lobar, or segmental pulmonary arteries. 2. Emphysema. 3. There is bibasilar airspace consolidation, right greater than left. Correlate clinically for evidence of pneumonia/aspiration pneumonitis. Radiographic follow-up to resolution is recommended. Follow-up radiographs should include both PA and lateral views. 4. Diffuse peribronchial thickening suggests bronchitis/reactive airway disease. 5. Additional findings as above. ACT 112: Negative or not required by law. Electronically signed by: Adrián Suero M.D. 05/28/2022 5:56 PM Discharge Plan Visit Data Chief Complaint: Shortness of Breath/Dyspnea ED Provider: Deng Alcala Discharge Problem: COPD with acute exacerbation, Hypoxia, Pneumonia Patient Disposition: Admitted As Inpatient Discharge Instructions Interventions: ED Discharge Assessment Last Done: 05/28/22 17:57
[2022-05-28] MEDS: DOXYCYCLINE HYCLATE 100 MG CAP PO SCH (22:19)
[2022-05-28] MEDS: methylPREDNISolone 40 MG in SYRINGE 0 ML IV SCH (23:23)
[2022-05-29] MEDS: LEVOTHYROXINE SODIUM 50 MCG TABLET PO SCH (05:40)
[2022-05-29] MEDS: ALBUT/IPRATROP 3MG/0.5MG NEB 3 ML VIAL NEB SCH ×4 (07:00→19:08)
[2022-05-29 07:19] LABS: Hematocrit (blood only) 40.7 % (34.1-44.9); Hemoglobin 13.6 g/dl (12.0-16.0); Mean Corpuscular Hemoglobin 31.5 pg (25.0-34.0); Mean Corpuscular Hgb Conc 33.4 g/dL (32.0-36.0); Mean Corpuscular Volume 94.2 fL (80.0-100.0); Mean Platelet Volume 9.6 fL (9.4-12.3); Platelet Count 238 K/uL (130-400); RDW Coefficient of Variation 12.9 % (11.5-14.5); RDW Standard Deviation 44.7 fL (36.4-46.3); Red Blood Count 4.32 M/uL (3.93-5.22); White Blood Count 6.29 K/ul (4.8-10.8)
[2022-05-29] MEDS: methylPREDNISolone 40 MG in SYRINGE 0 ML IV SCH ×2 (07:35→18:16)
[2022-05-29] MEDS: INSULIN ASPART PER UNIT SC SCH ×4 (07:35→22:00)
[2022-05-29] MEDS: ESCITALOPRAM OXALATE 20 MG TAB PO SCH (07:35)
[2022-05-29] MEDS: DOXYCYCLINE HYCLATE 100 MG CAP PO SCH ×2 (07:35→21:41)
[2022-05-29 07:59] LABS: BUN Creatinine Ratio 18.6 (10-20); Calcium 9.3 mg/dl (8.5-10.1); Creatinine Clr Calc Pharmacy 79.4 ml/min; Est GFR (African American) 103.2 ml/min; Phosphorus 4.2 mg/dl (2.5-4.9); Potassium 4.3 mmol/L (3.5-5.1)
--- NOTE | 2022-05-29 08:50 | XRay Report ---
XR chest 1V portable HISTORY: Shortness of breath. COPD exacerbation. COMPARISON: Chest 05/28/2022. FINDINGS: Slightly rotated study. No pneumothorax. No pleural effusions. The heart remains mildly enl arged. Emphysema is again noted. No evidence for pulmonary edema. Hazy bibasilar densities persist. IMPRESSION: 1. Stable cardiomegaly and emphysema. 2. No change in the hazy bibasilar densities. ACT 112: Negative or not required by law. Electronically signed by: Enrrique Byers M.D. 05/29/2022 8:49 AM
[2022-05-29 09:50] LABS: Estimated Average Glucose 114 mg/dl; Hemoglobin A1C 5.6 % (4.5-5.6)
[2022-05-29] MEDS: LORazepam 0.5 MG TAB PO PRN ×2 (10:16→15:45)
--- NOTE | 2022-05-29 11:21 | Electrocardiogram Report ---
Test Reason : Blood Pressure : / mmHG Vent. Rate : 078 BPM Atrial Rate : 078 BPM P-R Int : 144 ms QRS Dur : 100 ms QT Int : 390 ms P-R-T Axes : 074 059 058 degrees QTc Int : 444 ms Normal sinus rhythm Nonspecific T wave abnormality Abnormal ECG When compared with ECG of 28-MAY-2022 14:35, ST no longer elevated in Inferior leads Confirmed by Red Barnes ([id number]) on 05/29/2022 11:20:55 AM Referred By: REFERRED SELF Confirmed By:Red Barnes
--- NOTE | 2022-05-29 16:08 | Hospitalist Progress Note ---
Date of Service May 29, 2022 Assessment & Plan (1) COPD with acute exacerbation: (2) Tobacco use: (3) Hypoxia: Plan: Acute COPD exacerbation Acute respiratory failure with hypoxia, hypercarbia Community-acquired pneumonia --CTA: No evidence of PE. Emphysema. Bibasilar airspace consolidation right greater than left. Diffuse peribronchial thickening suggestive of bronchitis/reactive airway disease. -- Blood cultures pending Sputum culture showed light normal chris Procalcitonin 0.11 Continue antibiotics, Solu-Medrol, nebs Taper down steroids as able Supplemental oxygen to keep saturations 88 to 92% May need 2 step prior to discharge Tobacco use disorder Advise to quit smoking (4) Anxiety disorder, unspecified: (5) Major depression, melancholic type: Plan: Follows with Dr. Gordon Psych in [place] Has had SI in the past with thoughts of harming herself but no plan She has made comments per outpatient review of notes that she "hopes she dies" Declines in discussing with Psychiatry here; has good rapport with Dr. Gordon and has follow up scheduled in 2 weeks. No current SI Continue mirtazapine (recently increased to 45 mg) Continue Abilify (Dr. Irvin working to decrease dose) Continue Lexapro, Ativan PRN (6) Hypothyroidism: Plan: Continue levothyroxine (7) Pneumonia: Plan Code status: DNR/DNI DVT Px Heparin SQ Admission and Anticipated Discharge Date Admission Date: May 28, 2022 Subjective Patient is seen and examined at bedside Less dyspnea today Has intermittent dry cough Denies any chest pain, dizziness, nausea, abdominal pain, dysuria No other complaints Review of Systems Review of Systems: All systems reviewed & are unremarkable except as noted in Subjective Physical Exam Physical Exam: Physical Exam: Vitals signs as noted above General Appearance:Moderately built and nourished, no apparent distress Head: normocephalic, Atraumatic Eyes: normal inspection, EOMI Neck: supple, Trachea midline Respiratory/Chest: Decreased breath sounds, B/L expiratory wheezes, No accessory muscle use Cardiovascular: S1, S2, No murmur Abdomen/GI:Soft, Non tender, Bowel sounds present Extremities/Musculoskeletal:normal inspection, no edema Neurologic/Psych:AAOX3, grossly no focal neurological deficits Skin: normal color, warm Results & Data Results & Data ([facility]) Vital Signs (Past 12 Hours) Vital Signs Temp Pulse Pulse Resp BP BP Pulse Ox 05/29/22 15:56 36.5 C 89 19 105/66 94 05/29/22 15:54 69 05/29/22 15:14 74 18 95 05/29/22 12:04 110/58 L 94 05/29/22 11:52 36.5 C 72 20 96/57 L 91 05/29/22 10:29 64 20 93 05/29/22 08:00 05/29/22 07:50 36.4 C L 84 20 136/71 92 05/29/22 07:01 68 20 93 05/29/22 06:56 80 05/29/22 04:10 36.7 C 81 20 98/41 L 97 O2 Del Method O2 Flow Rate 05/29/22 15:56 Nasal Cannula 3 05/29/22 15:54 05/29/22 15:14 Nasal Cannula 3 05/29/22 12:04 Nasal Cannula 3 05/29/22 11:52 Nasal Cannula 3 05/29/22 10:29 Nasal Cannula 3 05/29/22 08:00 Nasal Cannula 3 05/29/22 07:50 Nasal Cannula 3 05/29/22 07:01 Nasal Cannula 3 05/29/22 06:56 05/29/22 04:10 Nasal Cannula 2 Laboratory Results Short CBC 05/29/22 Range/Units 06:55 WBC 6.29 (4.8-10.8) K/ul Hgb 13.6 (12.0-16.0) g/dl Hct 40.7 (34.1-44.9) % Plt Count 238 (130-400) K/uL BMP 05/29/22 06:55 Sodium 134 L Potassium 4.3 D Chloride 98 Carbon Dioxide 30 BUN 11 Creatinine 0.59 L Glucose 133 H Calcium 9.3 Urine 05/28/22 Range/Units 19:20 Urine Color Yellow Urine Appearance Clear (Clear) Urine pH 6.0 (4.5-7.5) Ur Specific [place] > 1.045 H (1.000-1.030) Urine Protein Negative (Negative) Urine Glucose (UA) Negative (Negative)
[2022-05-29] MEDS: cefTRIAXone SODIUM 2,000 MG in DEXTROSE 5% 50 ML IV SCH (18:16)
[2022-05-29] MEDS: ARIPiprazole 10 MG TAB PO SCH (21:42)
[2022-05-29] MEDS: MIRTAZAPINE TAB 15 MG TAB PO SCH (21:43)
[2022-05-29] MEDS: HEPARIN SOD 5,000 UNIT/0.5 ML VIAL SQ SCH (21:45)
[2022-05-29] MEDS: NICOTINE 14 MG/24 HR PATCH TD SCH (21:45)
[2022-05-30] MEDS: ALUMINUM/MAGNESIUM SUSP 30 ML UDC PO PRN ×2 (00:22→23:55)
[2022-05-30] MEDS: methylPREDNISolone 40 MG in SYRINGE 0 ML IV SCH ×2 (00:22→07:58)
[2022-05-30] MEDS: LEVOTHYROXINE SODIUM 50 MCG TABLET PO SCH (06:04)
[2022-05-30] MEDS: ALBUT/IPRATROP 3MG/0.5MG NEB 3 ML VIAL NEB SCH ×4 (06:53→19:09)
[2022-05-30] MEDS: ESCITALOPRAM OXALATE 20 MG TAB PO SCH (07:59)
[2022-05-30] MEDS: DOXYCYCLINE HYCLATE 100 MG CAP PO SCH ×2 (07:59→20:16)
[2022-05-30] MEDS: HEPARIN SOD 5,000 UNIT/0.5 ML VIAL SQ SCH ×2 (07:59→20:12)
[2022-05-30] MEDS: INSULIN ASPART PER UNIT SC SCH ×4 (08:00→20:13)
[2022-05-30] MEDS: LORazepam 0.5 MG TAB PO PRN ×3 (08:04→17:28)
--- NOTE | 2022-05-30 08:21 | Electrocardiogram Report ---
Test Reason : Blood Pressure : / mmHG Vent. Rate : 072 BPM Atrial Rate : 072 BPM P-R Int : 110 ms QRS Dur : 104 ms QT Int : 414 ms P-R-T Axes : 011 063 058 degrees QTc Int : 453 ms Sinus rhythm with short [place] Otherwise normal ECG When compared with ECG of 29-MAY-2022 05:43, Nonspecific T wave abnormality no longer present Confirmed by Shay Gomes ([id number]) on 05/30/2022 8:20:48 AM Referred By: REFERRED SELF Confirmed By:Shay Gomes
[2022-05-30 09:11] LABS: BUN Creatinine Ratio 22.2 (10-20); Calcium 9.7 mg/dl (8.5-10.1); Creatinine Clr Calc Pharmacy 86.9 ml/min; Est GFR (African American) 106.2 ml/min; Est GFR (Non-African American) 91.7 ml/min; Magnesium 1.9 mg/dl (1.7-2.4); Potassium 4.4 mmol/L (3.5-5.1)
--- NOTE | 2022-05-30 16:52 | Hospitalist Progress Note ---
Date of Service May 30, 2022 Assessment & Plan (1) COPD with acute exacerbation: (2) Tobacco use: (3) Hypoxia: Plan: Acute COPD exacerbation Acute respiratory failure with hypoxia, hypercarbia Community-acquired pneumonia --CTA: No evidence of PE. Emphysema. Bibasilar airspace consolidation right greater than left. Diffuse peribronchial thickening suggestive of bronchitis/reactive airway disease. -- Blood cultures no growth to date Sputum culture showed haemophilus influenza, moderate chris Procalcitonin 0.11 Continue antibiotics, Solu-Medrol, nebs Supplemental oxygen to keep saturations 88 to 92% May need 2 step prior to discharge Decrease Solu-Medrol to 40 mg daily Transition to p.o. prednisone tomorrow Tobacco use disorder Advise to quit smoking (4) Anxiety disorder, unspecified: (5) Major depression, melancholic type: Plan: Follows with Dr. Gordon Psych in [place] Has had SI in the past with thoughts of harming herself but no plan She has made comments per outpatient review of notes that she "hopes she dies" Declines in discussing with Psychiatry here; has good rapport with Dr. Gordon and has follow up scheduled in 2 weeks. No current SI Continue mirtazapine (recently increased to 45 mg) Continue Abilify (Dr. Irvin working to decrease dose) Continue Lexapro, Ativan PRN (6) Hypothyroidism: Plan: Continue levothyroxine (7) Pneumonia: Plan Code status: DNR/DNI DVT Px Heparin SQ Admission and Anticipated Discharge Date Admission Date: May 28, 2022 Subjective Patient is seen and examined at bedside States feeling dizzy earlier today Also reports altered taste Cough improving Denies any significant dyspnea Also denies any chest pain, dizziness, nausea, abdominal pain, dysuria Review of Systems Review of Systems: All systems reviewed & are unremarkable except as noted in Subjective Physical Exam Physical Exam: Physical Exam: Vitals signs as noted above General Appearance:Moderately built and nourished, no apparent distress Head: normocephalic, Atraumatic Eyes: normal inspection, EOMI Neck: supple, Trachea midline Respiratory/Chest: Decreased breath sounds, B/L Minimal wheezes, No accessory muscle use Cardiovascular: S1, S2, No murmur Abdomen/GI:Soft, Non tender, Bowel sounds present Extremities/Musculoskeletal:normal inspection, no edema Neurologic/Psych:AAOX3, grossly no focal neurological deficits Skin: normal color, warm Results & Data Results & Data ([facility]) Vital Signs (Past 12 Hours) Vital Signs Temp Pulse Pulse Resp BP BP Pulse Ox 05/30/22 15:58 71 05/30/22 14:49 71 18 91 05/30/22 14:36 36.5 C 72 18 115/67 92 05/30/22 09:37 94 05/30/22 11:19 36.6 C 72 20 127/72 93 05/30/22 10:48 71 18 100 05/30/22 09:29 05/30/22 08:12 36.5 C 78 20 145/70 H 96 05/30/22 07:24 68 05/30/22 06:54 69 18 96 O2 Del Method O2 Flow Rate 05/30/22 15:58 05/30/22 14:49 Room Air 05/30/22 14:36 Room Air 05/30/22 09:37 Room Air, Nasal Cannula 2 05/30/22 11:19 Room Air 05/30/22 10:48 Nasal Cannula 3 05/30/22 09:29 Nasal Cannula 3 05/30/22 08:12 Nasal Cannula 3 05/30/22 07:24 05/30/22 06:54 Nasal Cannula 4 Laboratory Results BMP 05/30/22 06:30 Sodium 136 Potassium 4.4 Chloride 97 L Carbon Dioxide 36 H BUN 12 Creatinine 0.54 L Glucose 130 H Calcium 9.7
[2022-05-30] MEDS: cefTRIAXone SODIUM 2,000 MG in DEXTROSE 5% 50 ML IV SCH (17:28)
[2022-05-30] MEDS: ARIPiprazole 10 MG TAB PO SCH (20:14)
[2022-05-30] MEDS: NICOTINE 14 MG/24 HR PATCH TD SCH (20:14)
[2022-05-30] MEDS: MIRTAZAPINE TAB 15 MG TAB PO SCH (20:15)
[2022-05-31] MEDS: LEVOTHYROXINE SODIUM 50 MCG TABLET PO SCH (05:20)
[2022-05-31] MEDS: ALBUT/IPRATROP 3MG/0.5MG NEB 3 ML VIAL NEB SCH ×2 (07:14→10:17)
[2022-05-31 07:22] LABS: BUN Creatinine Ratio 21.4 (10-20); Calcium 9.6 mg/dl (8.5-10.1); Creatinine Clr Calc Pharmacy 82.9 ml/min; Est GFR (Non-African American) 90.6 ml/min; Potassium 3.8 mmol/L (3.5-5.1)
[2022-05-31] MEDS: INSULIN ASPART PER UNIT SC SCH ×2 (07:59→11:22)
[2022-05-31] MEDS: DOXYCYCLINE HYCLATE 100 MG CAP PO SCH (08:00)
[2022-05-31] MEDS: ESCITALOPRAM OXALATE 20 MG TAB PO SCH (08:00)
[2022-05-31] MEDS: HEPARIN SOD 5,000 UNIT/0.5 ML VIAL SQ SCH (08:01)
[2022-05-31] MEDS: LORazepam 0.5 MG TAB PO PRN ×2 (08:04→12:45)
[2022-05-31] MEDS ORDERED: methylPREDNISolone 40 MG in SYRINGE 0 ML IV SCH (09:00)
--- NOTE | 2022-05-31 10:48 | Hospitalist Progress Note ---
Date of Service May 31, 2022 Assessment & Plan (1) COPD with acute exacerbation: (2) Tobacco use: (3) Hypoxia: Plan: Acute COPD exacerbation Acute respiratory failure with hypoxia, hypercarbia Community-acquired pneumonia --CTA: No evidence of PE. Emphysema. Bibasilar airspace consolidation right greater than left. Diffuse peribronchial thickening suggestive of bronchitis/reactive airway disease. -- Blood cultures no growth to date Sputum culture showed haemophilus influenza, moderate chris Procalcitonin 0.11 Continue antibiotics, Solu-Medrol, nebs Supplemental oxygen to keep saturations 88 to 92% 2 step: Needs 1 liter with activity Transition Solu-Medrol to prednisone taper course Tobacco use disorder Advise to quit smoking (4) Anxiety disorder, unspecified: (5) Major depression, melancholic type: Plan: Follows with Dr. Gordon Psych in [place] Has had SI in the past with thoughts of harming herself but no plan She has made comments per outpatient review of notes that she "hopes she dies" Declines in discussing with Psychiatry here; has good rapport with Dr. Gordon and has follow up scheduled in 2 weeks. No current SI Continue mirtazapine (recently increased to 45 mg) Continue Abilify (Dr. Irvin working to decrease dose) Continue Lexapro, Ativan PRN (6) Hypothyroidism: Plan: Continue levothyroxine (7) Pneumonia: Plan Code status: DNR/DNI DVT Px Heparin SQ Admission and Anticipated Discharge Date Admission Date: May 28, 2022 Subjective Patient is seen and examined at bedside Feels slightly anxious but otherwise feels well Dizziness resolved Cough, dyspnea much improved Also denies any chest pain, dizziness, nausea, abdominal pain, dysuria Had 2 step earlier today Review of Systems Review of Systems: All systems reviewed & are unremarkable except as noted in Subjective Physical Exam Physical Exam: Physical Exam: Vitals signs as noted above General Appearance:Moderately built and nourished, no apparent distress Head: normocephalic, Atraumatic Eyes: normal inspection, EOMI Neck: supple, Trachea midline Respiratory/Chest: Decreased breath sounds, CTA, No accessory muscle use Cardiovascular: S1, S2, No murmur Abdomen/GI:Soft, Non tender, Bowel sounds present Extremities/Musculoskeletal:normal inspection, no edema Neurologic/Psych:AAOX3, grossly no focal neurological deficits Skin: normal color, warm Results & Data Results & Data ([facility]) Vital Signs (Past 12 Hours) Vital Signs Temp Pulse Pulse Pulse Pulse Pulse Pulse 05/31/22 10:18 63 05/31/22 09:38 05/31/22 09:31 72 05/31/22 08:48 75 85 75 67 05/31/22 07:20 36.5 C 76 05/31/22 07:14 69 05/31/22 03:26 36.7 C 66 05/31/22 00:10 64 05/30/22 23:58 36.5 C 68 Resp Resp Resp Resp Resp BP BP 05/31/22 10:18 18 05/31/22 09:38 05/31/22 09:31 05/31/22 08:48 20 22 18 18 05/31/22 07:20 20 130/70 05/31/22 07:14 18 05/31/22 03:26 18 103/67 05/31/22 00:10 05/30/22 23:58 18 115/71 Pulse Ox Pulse Ox Pulse Ox Pulse Ox Pulse Ox O2 Del Method O2 Flow Rate 05/31/22 10:18 90 Room Air 05/31/22 09:38 Nasal Cannula 1 05/31/22 09:31 05/31/22 08:48 90 86 L 93 91 05/31/22 07:20 92 Nasal Cannula 3 05/31/22 07:14 90 Nasal Cannula 2.5 05/31/22 03:26 98 Nasal Cannula 3 05/31/22 00:10 05/30/22 23:58 91 Nasal Cannula 3 O2 Flow Rate O2 Flow Rate 05/31/22 10:18 05/31/22 09:38 05/31/22 09:31 05/31/22 08:48 1 1 05/31/22 07:20 05/31/22 07:14 05/31/22 03:26 05/31/22 00:10 05/30/22 23:58 Laboratory Results BMP 05/31/22 06:09 Sodium 137 Potassium 3.8 Chloride 99 Carbon Dioxide 37 H BUN 12 Creatinine 0.56 L Glucose 87 Calcium 9.6
--- NOTE | 2022-05-31 11:14 | Discharge Summary ---
Date of Service May 31, 2022 Admission HPI Per Admitting Provider Ms. Mcmanus is a 76-year-old female who presented to the [facility] after recommendation by [facility] cardiology [place] where she presented today for an outpatient appointment and her SPO2 was 77%. Patient has reportedly been feeling ill since 05/24 with shortness of breath, fever and productive cough with thick muhammad sputum. She reports not having an appetite over the last few days with poor p.o. intake. Patient is vaccinated against flu and COVID. Chest x-ray reveals lung volumes being normal without pneumothorax. Trace bilateral pleural effusions were noted with probable mild pulmonary edema and no consolidation. Patient reports she is an active smoker 1.5 PPD with no intent of quitting. PFTs from 2016 FEV1 72. Troponin level 16.5 slightly elevated will trend x1 however do not suspect that this is ACS related rather ischemic demand due to underlying illness. Chest CTA was obtained in the ED to rule out PE. Patient did test negative for COVID, flu and RSV. She did receive a dose of methylprednisone in ED. In EMR review her las ECHO was 2019 EF 60 to 64% with grade 1 diastolic dysfunction and normal wall motion. BNP 88 consider repeat echo if no improvement however do not suspect this to be CHF in nature. Additional past medical history includes anxiety, depression, COPD not on oxygen, hypothyroidism, OA, and gout. Patient follows with Dr. Grimes psychiatry in [place] for suicidal ideation and MDD. Medication adjustments have been made recently and patient denies any current SI or SA. She declines discussing with psychiatry or behavioral health liaison here and reports that she has good rapport with Dr. Irvin and and has a follow-up scheduled within 2 weeks. Patient sitting upright in her hospital bed in no apparent distress SPO2 ranges 88 to 90% on 3 L. Patient AAO x4 and able to have full meaningful conversation and able to speak in complete sentences without dyspnea. She is on 3 L nasal cannula with inspiratory and expiratory wheezes with scattered rhonchi upon auscultation. Patient denies headache, dizziness, chest pain, palpitations, vomiting, diarrhea, recent travel, falls or trauma. Patient is receptive to admission for further evaluation and management. Please see A/P for further details. Admission Exam Per Admitting Provider Physical Exam Physical Exam: Neuro: AAOx4, PERRLA, no aphagia, memory changes, CNII-XII grossly intact HEENT: head normocephalic, moist mucus membranes. numerous plaques noted posterior oral cavity with erythema CV: S1/S2, (-) M/G/R, (-) edema, cap refill < 3 seconds Resp: 3LNC. I/E wheezes with scattered rhonchi GI: Abdomen S/NT/ND, Ax4 bowel sounds, (-) CVA tenderness Musculoskeletal: 5/5 B/L UE strength, 5/5 B/L LE strength. No gait disturbance Skin: (-) rashes , (-) erythema. Psych: euthymic mood Principal Diagnosis Acute COPD exacerbation Acute respiratory failure with hypoxia, hypercarbia Community-acquired pneumonia Tobacco use disorder Discharge Data Allergies Allergy/AdvReac Type Severity Reaction Status Date / Time Sulfa (Sulfonamide Allergy Intermediate Rash Verified 05/28/22 16:46 Antibiotics) Consultations 05/28/22 16:54 ED Decision to Admit Stat Procedures Performed Laboratory Results WBC 6.29 K/ul (4.8-10.8) 05/29/22 06:55 RBC 4.32 M/uL (3.93-5.22) 05/29/22 06:55 Hgb 13.6 g/dl (12.0-16.0) 05/29/22 06:55 Hct 40.7 % (34.1-44.9) 05/29/22 06:55 MCV 94.2 fL (80.0-100.0) 05/29/22 06:55 MCH 31.5 pg (25.0-34.0) 05/29/22 06:55 MCHC 33.4 g/dL (32.0-36.0) 05/29/22 06:55 RDW Std Deviation 44.7 fL (36.4-46.3) 05/29/22 06:55 RDW Coeff of Donn 12.9 % (11.5-14.5) 05/29/22 06:55 Plt Count 238 K/uL (130-400) 05/29/22 06:55 MPV 9.6 fL (9.4-12.3) 05/29/22 06:55 Immature Gran % (Auto) 0.3 % 05/28/22 14:45 Neut % (Auto) 68.9 % 05/28/22 14:45 Lymph % (Auto) 13.1 % 05/28/22 14:45 [place] % (Auto) 16.8 % 05/28/22 14:45 Eos % (Auto) 0.3 % 05/28/22 14:45 Baso % (Auto) 0.6 % 05/28/22 14:45 Neut # (Auto) 6.13 K/uL (1.4-6.5) 05/28/22 14:45 Lymph # (Auto) 1.17 K/uL (1.2-3.4) L 05/28/22 14:45 [place] # (Auto) 1.50 K/uL (0.24-0.82) H 05/28/22 14:45 Eos # (Auto) 0.03 K/uL (0-0.50) 05/28/22 14:45 Baso # (Auto) 0.05 K/uL (0-0.2) 05/28/22 14:45 Immature Gran # (Auto) 0.03 K/uL (0.00-0.02) H 05/28/22 14:45 VBG pH 7.36 (7.36-7.41) 05/28/22 20:00 VBG pCO2 62 mmHg (38-50) H 05/28/22 20:00 VBG pO2 45 mmHg 05/28/22 20:00 VBG HCO3 35 mmol/L 05/28/22 20:00 VBG O2 Saturation 75.9 % 05/28/22 20:00 VBG Base Excess 7.4 mEq/L 05/28/22 20:00 Sodium 137 mmol/L (136-145) 05/31/22 06:09 Potassium 3.8 mmol/L (3.5-5.1) 05/31/22 06:09 Chloride 99 mmol/L (98-107) 05/31/22 06:09 Carbon Dioxide 37 mmol/L (21-32) H 05/31/22 06:09 Anion Gap 1 (3-11) L 05/31/22 06:09 BUN 12 mg/dl (6-23) 05/31/22 06:09 Creatinine 0.56 mg/dl (0.6-1.2) L 05/31/22 06:09 Est Cr Clr Drug Dosing 82.9 ml/min 05/31/22 06:09 Est GFR ( Amer) 105.0 ml/min 05/31/22 06:09 Est GFR (Non-Af Amer) 90.6 ml/min 05/31/22 06:09 BUN/Creatinine Ratio 21.4 (10-20) H 05/31/22 06:09 Glucose 87 mg/dl (70-99(Fasting)) 05/31/22 06:09 POC Glucose 90 mg/dl (70-99) 05/31/22 07:55 Estimat Average Glucose 114 mg/dl 05/29/22 06:55 Hemoglobin A1c 5.6 % (4.5-5.6) 05/29/22 06:55 Lactate 1.4 mmol/L (0.4-2.0) 05/28/22 16:55 Calcium 9.6 mg/dl (8.5-10.1) 05/31/22 06:09 Phosphorus 4.2 mg/dl (2.5-4.9) D 05/29/22 06:55 Magnesium 1.9 mg/dl (1.7-2.4) 05/30/22 06:30 Total Bilirubin 0.5 mg/dl (0.2-1.0) 05/28/22 14:45 AST 22 U/L (13-39) 05/28/22 14:45 ALT 16 U/L (7-52) 05/28/22 14:45 Alkaline Phosphatase 74 U/L (34-104) 05/28/22 14:45 Troponin I High Sens 7.5 pg/ml (0-14) D 05/28/22 16:55 B-Natriuretic Peptide 88 pg/ml (0-100) 05/28/22 16:44 Total Protein 6.5 gm/dl (6.0-8.3) 05/28/22 14:45 Albumin 3.4 gm/dl (3.4-5.0) 05/28/22 14:45 Globulin 3.1 gm/dl (2.5-4.0) 05/28/22 14:45 Albumin/Globulin Ratio 1.1 (0.9-2) 05/28/22 14:45 Lipase 10 U/L (11-82) L 05/28/22 14:45 Procalcitonin 0.11 ng/ml (0-0.5) 05/28/22 14:45 Urine Color Yellow 05/28/22 19:20 Urine Appearance Clear (Clear) 05/28/22 19:20 Urine pH 6.0 (4.5-7.5) 05/28/22 19:20 Ur Specific [place] > 1.045 (1.000-1.030) H 05/28/22 19:20 Urine Protein Negative (Negative) 05/28/22 19:20 Urine Glucose (UA) Negative (Negative) 05/28/22 19:20 Urine Ketones Trace (Negative) H 05/28/22 19:20 Urine Blood 1+ (Negative) H 05/28/22 19:20 Urine Nitrite Negative (Negative) 05/28/22 19:20 Urine Bilirubin Negative (Negative) 05/28/22 19: Urine Urobilinogen Negative (Negative) 05/28/22 19:20 Ur Leukocyte Esterase 1+ (Negative) H 05/28/22 19:20 Urine WBC (Auto) >30 /hpf (0-5) H 05/28/22 19:20 Urine RBC (Auto) 0-4 /hpf (0-4) 05/28/22 19:20 U Hyaline Cast (Auto) 0 /lpf (0-5) 05/28/22 19:20 U Epithel Cells (Auto) 5-10 /lpf (0-5) H 05/28/22 19:20 Urine Bacteria (Auto) 2+ (Negative) H 05/28/22 19:20 SARS-CoV-2 (PCR) NEGATIVE (Negative) 05/28/22 14:45 Influenza Type A (PCR) Negative (Neg) 05/28/22 14:45 Influenza Type B (PCR) Negative (Neg) 05/28/22 14:45 RSV (RT-PCR) Negative (Neg) 05/28/22 14:45 Impressions Chest CTA 05/28/22 16:17 CT ANGIOGRAM OF THE CHEST CLINICAL HISTORY: Dyspnea. Hypoxia. COMPARISON STUDY: Chest x-ray dated 05/28/2022. TECHNIQUE: Following the IV administration of 117 cc of Optiray 320, CT angiogram of the chest was performed from the upper abdomen to the thoracic inlet utilizing the pulmonary embolus protocol. Images are reviewed in the axial, sagittal, and coronal planes. 3-D MIPS images are created and assessed. IV contrast was administered without complication. A dose lowering technique was utilized adhering to the principles of ALARA. CT DOSE: 389.27 mGy.cm FINDINGS: Thyroid: Mildly atrophic and heterogeneous. Thoracic aorta: There is atherosclerotic calcification of the thoracic aorta, which is normal in caliber and demonstrates standard 3-vessel arch anatomy. No dissection is seen. Pulmonary vasculature: The pulmonary trunk is normal in caliber. There are no filling defects identified in main, lobar, or segmental pulmonary branches to suggest pulmonary embolus. Heart: The heart is normal in size and without pericardial effusion. Lungs and pleural spaces: Emphysematous change is observed. The trachea and central airways are clear. There is diffuse peribronchial thickening, greatest in the lower lobes. There is bibasilar airspace consolidation, right greater than left. No pleural effusion is identified. Mediastinum: There is no mediastinal lymphadenopathy. Millie: Clear. Axillae: There is no axillary lymphadenopathy. Upper abdomen: Cholecystectomy clips are noted. Partially visualized upper abdominal viscera is otherwise within normal limits. Skeletal structures: The skeletal structures are osteopenic. Degenerative change and hyperkyphosis is noted in the thoracic spine. No lytic or blastic bony lesions are seen. Arthritic change is noted in the shoulders. IMPRESSION: 1. There is no evidence of pulmonary embolus in the main, lobar, or segmental pulmonary arteries. 2. Emphysema. 3. There is bibasilar airspace consolidation, right greater than left. Correlate clinically for evidence of pneumonia/aspiration pneumonitis. Radiographic follow-up to resolution is recommended. Follow-up radiographs should include both PA and lateral views. 4. Diffuse peribronchial thickening suggests bronchitis/reactive airway disease. 5. Additional findings as above. ACT 112: Negative or not required by law. Electronically signed by: Adrián Suero M.D. 05/28/2022 5:56 PM Chest X-Ray 05/29/22 08:00 XR chest 1V portable HISTORY: Shortness of breath. COPD exacerbation. COMPARISON: Chest 05/28/2022. FINDINGS: Slightly rotated study. No pneumothorax. No pleural effusions. The heart remains mildly enlarged. Emphysema is again noted. No evidence for pulmonary edema. Hazy bibasilar densities persist. IMPRESSION: 1. Stable cardiomegaly and emphysema. 2. No change in the hazy bibasilar densities. ACT 112: Negative or not required by law. Electronically signed by: Enrrique Byers M.D. 05/29/2022 8:49 AM Ordered Studies 05/28/22 16:17 CT angio chest PE protocol Stat Hospital Course (1) COPD with acute exacerbation: (2) Tobacco use: (3) Hypoxia: Acute COPD exacerbation Acute respiratory failure with hypoxia, hypercarbia Community-acquired pneumonia --CTA: No evidence of PE. Emphysema. Bibasilar airspace consolidation right greater than left. Diffuse peribronchial thickening suggestive of bronchitis/reactive airway disease. -- Blood cultures no growth to date Sputum culture showed haemophilus influenza, moderate chris Procalcitonin 0.11 Continue antibiotics, Solu-Medrol, nebs Supplemental oxygen to keep saturations 88 to 92% 2 step: Needs 1 liter with activity Transition Solu-Medrol to prednisone taper course Tobacco use disorder Advise to quit smoking (4) Anxiety disorder, unspecified: (5) Major depression, melancholic type: Follows with Dr. Gordon Psych in [place] Has had SI in the past with thoughts of harming herself but no plan She has made comments per outpatient review of notes that she "hopes she dies" Declines in discussing with Psychiatry here; has good rapport with Dr. Gordon and has follow up scheduled in 2 weeks. No current SI Continue mirtazapine (recently increased to 45 mg) Continue Abilify (Dr. Irvin working to decrease dose) Continue Lexapro, Ativan PRN (6) Hypothyroidism: Continue levothyroxine (7) Pneumonia: Plan Code status: DNR/DNI DVT Px Heparin SQ Total Time Total Time Spent Total Time Spent (In Minutes): 47 minutes Discharge Plan Discharge Items Patient Disposition: Home - Self-Care Reason For Visit: SOB Discharge Diagnosis: Acute COPD exacerbation Acute respiratory failure with hypoxia, hypercarbia Community-acquired pneumonia Tobacco use disorder Activity: Per Instructions section Exercise/Sports: Wait until after follow-up appointment Non-emergency contact: Primary Care Provider Call non-emergency contact if: you have any medication questions, your pain is concerning for you and you have a fever Follow-up/Referrals: Holland Warren MD [Primary Care Provider] - (Date & Time 06/04/2022 11:00 AM Provider Holland Warren MD Department [facility] ) Diet: Carb Consistent or DM2 and Heart Healthy Diet Texture: Easy to Chew Addtl Attending Provider Instructions: Follow-up with your primary care physician on 06/04/2022 11:00 AM --- Complete the antibiotic/prednisone taper course as prescribed. Prednisone taper course Start taking prednisone 30 mg daily for 2 days, then take 20 mg daily for 2 days, then take 10 mg daily for 2 days and stop. --Quit smoking tobacco as advised. --- Use supplemental oxygen 1 L with activity as advised. Seek immediate medical attention if your symptoms reoccur or worsen Please take all medications as instructed on discharge list below. Please call if you have any questions or problems. You can reach a [facility] hospitalist on duty at [facility] 24 hours a day by calling [phone] Pending Studies at Discharge: Yes Studies:: Blood Culture Stand-Alone Forms: [facility], Smoking Cessation Medications and DC Order Prescriptions: New doxycycline hyclate 100 mg Capsule 100 mg PO BID Qty: 10 0RF fluticasone propion-salmeterol [Advair Diskus] 100-50 mcg/dose blister with device 1 inh inhalation QAM Qty: 60 1RF prednisone 10 mg tablet 10 mg PO UD Qty: 12 0RF Rx Instructions: Take prednisone 30 mg daily for 2 days, then take 20 mg daily for 2 days, then take 10 mg daily for 2 days and stop cefuroxime axetil 500 mg tablet 500 mg PO BID Qty: 10 0RF Continued levothyroxine [Synthroid] 50 mcg Tablet 50 mcg PO DAILY Qty: 0 lorazepam [Ativan] 0.5 mg tablet 0.5 mg PO TID PRN (Reason: Anxiety) escitalopram oxalate [Lexapro] 20 mg tablet 20 mg PO DAILY Qty: 14 0RF mirtazapine 45 mg tablet 45 mg PO HS aripiprazole 10 mg tablet 10 mg PO HS albuterol sulfate 90 mcg/actuation HFA aerosol inhaler 1 puff INHALATION TID PRN (Reason: SOB) Discharge Orders: Discharge Order (Routine); Ordered 05/31/22 Ordered By: Sacha Ventura Admission Data Admit Date/Time: 05/28/22 16:32 Attending Provider: Sacha Ventura Admit Provider: Alva,Haydee M. Primary Care Provider: Holland Warren Other Providers: Haydee Castro ; Sacha Ventura
[2022-05-31] MEDS ORDERED: FLUTICASONE/VILANTEROL 100/25MCG 14 PUFFS/INHALER INH SCH (11:30)
== END 2022-05-31 13:50 | disposition home or self-care (01) | DRG 193 ==
LOC: ED 14:12 → 2N 16:32 → SUATTDRO 16:32 → 2N 17:57

== ENCOUNTER 2023-03-13 18:35 | Inpatient (IN) ==
[2023-03-13 20:22] LABS: Hematocrit (blood only) 46.7 % (37.0-47.0); Hemoglobin 15.6 g/dl (12.0-16.0); Mean Corpuscular Hemoglobin 32.2 pg (25.0-34.0); Mean Corpuscular Hgb Conc 33.4 g/dL (32.0-36.0); Mean Corpuscular Volume 96.3 fL (80.0-100.0); Mean Platelet Volume 9.5 fL (9.4-12.4); Platelet Count 193 K/uL (130-400); RDW Coefficient of Variation 13.8 % (11.5-14.5); RDW Standard Deviation 49.3 fL (36.4-46.3); Red Blood Count 4.85 M/uL (4.20-5.40); White Blood Count 13.42 K/ul (4.8-10.8)
[2023-03-13 20:28] LABS: HCO3 VBG 39 mmol/L; Oxygen Saturation VBG < 60.0 %; PCO2 VBG 81 mmHg (38-50); PO2 VBG 33 mmHg; pH VBG 7.29 (7.36-7.41)
[2023-03-13 20:40] LABS: Albumin Globulin Ratio 1.5 (0.9-2); BUN Creatinine Ratio 23.4 (10-20); Bilirubin,Total 0.5 mg/dl (0.2-1.0); Calcium 9.2 mg/dl (8.6-10.3); Creatinine Clr Calc Pharmacy 69.1 ml/min; Est GFR (African American) 99.8 ml/min; Est GFR (Non-African American) 86.1 ml/min; Globulin 2.6 gm/dl (2.5-4.0); Total Protein 6.6 gm/dl (6.0-8.3)
[2023-03-13 20:41] LABS: Basophils # (auto) 0.05 K/uL (0.00-0.20); Basophils % (auto) 0.4 %; Eosinophils # (auto) 0.03 K/uL (0.00-0.50); Eosinophils % (auto) 0.2 %; Immature Granulocytes # (auto) 0.04 K/uL (0.01-0.20); Immature Granulocytes % (auto) 0.3 %; Lymphocytes # (auto) 0.37 K/uL (1.20-3.40); Lymphocytes % (auto) 2.8 %; Monocytes # (auto) 0.72 K/uL (0.11-0.59); Monocytes % (auto) 5.4 %; Neutrophils # (auto) 12.21 K/uL (1.40-6.50); Neutrophils % (auto) 90.9 %; RBC Morphology Unremarkable
[2023-03-13 20:45] LABS: Troponin I High Sensitivity 7.8 pg/ml (0-14)
[2023-03-13] MEDS ORDERED: methylPREDNISolone 125 MG/2 ML VIAL IV STA (21:20)
[2023-03-13] MEDS ORDERED: ALBUTEROL 0.5% NEB SOLN 2.5 MG/0.5 ML VIAL NEB STA (21:20)
--- NOTE | 2023-03-13 21:24 | Emergency Department Note ---
Impression & Plan COPD with acute exacerbation ED Provider Note NAME: LANDON CAICEDO AGE: 77 SEX: F : 1945 ARRIVES VIA: Ambulance INFORMANT: [Patient][, ] ED PROVIDER(S): [Adri Loving MD] CHIEF COMPLAINT: Shortness of breath HPI: This is a 77-year-old female with history of COPD on 1 L nasal cannula, anxiety, active smoker presenting for shortness of breath. Patient states that today she got her flu shot at her PCPs office. She notes that she began noticing shortness of breath. She took 2 puffs of her albuterol today with some improvement. She noted that she did this again and again had some moderate improvement. She has a feeling did not feel much better shortly afterwards so she called 911. She denies any chest pain. No pleurisy. No leg swelling or leg pain. Reports no fevers, chills, nausea or vomiting. She does continue to smoke at this time . ROS: See above HPI for pertinent positives & negatives. A total of [10] systems reviewed and were otherwise negative. PAST MEDICAL HISTORY: [See Below] PAST SURGICAL HISTORY: [See Below] FAMILY HISTORY: [See Below] SOCIAL HISTORY: [See Below] HOME MEDICATIONS: See Below ALLERGIES: See Below VITALS: See Below PHYSICAL EXAMINATION: General: resting comfortably in no acute distress Head: Normocephalic and atraumatic Eyes: Normal inspection, extraocular muscles intact, no conjunctival pallor Ear, nose, throat: Normal external exam Neck: Normal range of motion Respiratory: No respiratory distress, diminished breath sounds in all lung steiner, slight wheezing noted Cardiovascular: RRR without murmur appreciated GI: soft, nontender, no guarding or rebound Extremities: pulses intact with good cap refills, no LE pitting edema or calf tenderness Neuro: The patient awake and alert, appropriately conversive,no focal decifits Skin: Warm, dry, and intact MEDICAL DECISION MAKING: This is a 77-year-old female with history of COPD on 1 L nasal cannula at home, anxiety, active smoker presenting for shortness of breath. Patient symptoms appear consistent with COPD. Also consider pneumonia as a potential source. Low concern for PE or ACS clinically. Patient not tachycardic. She is hypoxic on 1 L at 88 to 89%. On 4 L she is 96% feels much better. With her lung exam we will give albuterol and steroids. Due to hypoxia will admit to hospitalist service. Laboratories reviewed showing leukocytosis 13.42. Otherwise VBG does show slight acidosis 7.29 with a CO2 of 81. Triage Nursing notes reviewed. Prior medical records reviewed Vital Signs: reviewed and remarkable for no significant abnormalities Differential diagnosis: As above ER treatment provided: See below Diagnostics interpreted by me: ECG: None Cardiac Monitoring: An order was placed for continuous cardiac monitoring. The monitor shows a rate of 70 with sinus rhythm. Laboratory studies: As stated above and show below. Imaging studies: See below. Radiographic imaging was reviewed by myself Consultation(s): None Past Med/Surg History Medical History Anxiety disorder, unspecified COPD with acute exacerbation Depression Hypothyroidism Hypoxia Tobacco use Surgical History History of cholecystectomy History of colonoscopy History of colposcopy Family History Other Depression Diabetes Dyslipidemia Hypertension Social History Smoking Status: Current every day smoker Tobacco Type: Cigarettes Cigarettes Per Day: 30; Do You Dip or Chew Tobacco: No; Hx Alcohol Use: No Hx Substance Use: No Preferred Language: Burkinan Communication Ability: Effective Gas Well Pumper Required: No Beliefs That Will Affect Care: None Current Living Situation: Alone Feels Safe at Home: Yes Assistive Devices: None Allergies Allergies Allergy/AdvReac Type Severity Reaction Status Date / Time Sulfa (Sulfonamide Allergy Intermediate Rash Verified 05/28/22 16:46 Antibiotics) Home Meds Home Medications Medication Instructions Recorded Confirmed levothyroxine 50 mcg tablet 50 mcg PO DAILY #0 tabs 07/11/16 05/28/22 (Synthroid) lorazepam 0.5 mg tablet (Ativan) 0.5 mg PO TID PRN Anxiety 05/22/19 05/28/22 albuterol sulfate 90 mcg/actuation 1 puff inhalation TID PRN SOB 05/28/22 05/28/22 aerosol inhaler aripiprazole 10 mg tablet 10 mg PO HS 05/28/22 05/28/22 mirtazapine 45 mg tablet 45 mg PO HS 05/28/22 05/28/22 Previous Rx's Medication Instructions Recorded escitalopram oxalate 20 mg tablet 20 mg PO DAILY #14 tabs 06/01/19 (Lexapro) cefuroxime axetil 500 mg tablet 500 mg PO BID #10 tabs 05/31/22 doxycycline hyclate 100 mg capsule 100 mg PO BID #10 caps 05/31/22 fluticasone 100 mcg-salmeterol 50 1 inh inhalation QAM #60 ea 05/31/22 mcg/dose blistr powdr for inhalation (Advair Diskus) prednisone 10 mg tablet 10 mg PO UD #12 tabs 05/31/22 Results & Data (ED) Vital Signs Vital Signs - 24 hr 03/13/23 19:44 03/13/23 19:58 03/13/23 21:03 Temperature 37.2 C Temperature Source Temporal Artery Scan Pulse Rate 70 69 Pulse Rate [Apical] Respiratory Rate 18 Respiratory Effort / Characteristics Non-Labored Respiratory Depth Normal Blood Pressure 117/57 L Blood Pressure [Right Arm] Blood Pressure Mean 77 Blood Pressure Mean [Right Arm] Pulse Oximetry 89 L Oxygen Delivery Method Nasal Cannula Nasal Cannula Oxygen Flow Rate 4 5 Sepsis Recent Fever Within 48 Hours No Sepsis New/Unexplained Change in Mental Status No Sepsis Action Taken by Nursing No Action Required 03/13/23 21:03 03/13/23 21:03 Temperature Temperature Source Pulse Rate Pulse Rate [Apical] 71 Respiratory Rate 21 Respiratory Effort / Characteristics Non-Labored Respiratory Depth Normal Blood Pressure Blood Pressure [Right Arm] 127/63 Blood Pressure Mean Blood Pressure Mean [Right Arm] 84 Pulse Oximetry 96 Oxygen Delivery Method Nasal Cannula Nasal Cannula Oxygen Flow Rate 5 Sepsis Recent Fever Within 48 Hours Sepsis New/Unexplained Change in Mental Status Sepsis Action Taken by Nursing Laboratory Data 03/13/23 20:03 03/13/23 20:03 Lab Results 03/13/23 03/13/23 03/13/23 Range/Units 20:03 20:03 20:03 WBC 13.42 H (4.8-10.8) K/ul RBC 4.85 (4.20-5.40) M/uL Hgb 15.6 (12.0-16.0) g/dl Hct 46.7 (37.0-47.0) % MCV 96.3 (80.0-100.0) fL MCH 32.2 (25.0-34.0) pg MCHC 33.4 (32.0-36.0) g/dL RDW Std Deviation 49.3 H (36.4-46.3) fL RDW Coeff of Donn 13.8 (11.5-14.5) % Plt Count 193 (130-400) K/uL MPV 9.5 (9.4-12.4) fL Immature Gran % (Auto) 0.3 % Neut % (Auto) 90.9 % Lymph % (Auto) 2.8 % [place] % (Auto) 5.4 % Eos % (Auto) 0.2 % Baso % (Auto) 0.4 % Neut # (Auto) 12.21 H (1.40-6.50) K/uL Lymph # (Auto) 0.37 L (1.20-3.40) K/uL [place] # (Auto) 0.72 H (0.11-0.59) K/uL Eos # (Auto) 0.03 (0.00-0.50) K/uL Baso # (Auto) 0.05 (0.00-0.20) K/uL Immature Gran # (Auto) 0.04 (0.01-0.20) K/uL RBC Morphology Unremarkable VBG pH (7.36-7.41) VBG pCO2 (38-50) mmHg VBG pO2 mmHg VBG HCO3 mmol/L VBG O2 Saturation % VBG Base Excess mEq/L Sodium 135 L (136-145) mmol/L Potassium 4.0 (3.5-5.1) mmol/L Chloride 97 L (98-107) mmol/L Carbon Dioxide 35 H (21-32) mmol/L Anion Gap 3 (3-11) BUN 15 (6-23) mg/dl Creatinine 0.64 (0.6-1.2) mg/dl Est Cr Clr Drug Dosing 69.1 ml/min Est GFR ( Amer) 99.8 ml/min Est GFR (Non-Af Amer) 86.1 ml/min BUN/Creatinine Ratio 23.4 H (10-20) Glucose 96 (70-99(Fasting)) mg/dl Calcium 9.2 (8.6-10.3) mg/dl Total Bilirubin 0.5 (0.2-1.0) mg/dl AST 25 (13-39) U/L ALT 19 (7-52) U/L Alkaline Phosphatase 90 (34-104) U/L Troponin I High Sens 7.8 (0-14) pg/ml B-Natriuretic Peptide 61 (0-100) pg/ml Total Protein 6.6 (6.0-8.3) gm/dl Albumin 4.0 (3.4-5.0) gm/dl Globulin 2.6 (2.5-4.0) gm/dl Albumin/Globulin Ratio 1.5 (0.9-2) Adenovirus (PCR) (NotDetected) B. pertussis DNA (PCR) (NotDetected) B.parapertussis DNA PCR (NotDetected) C. pneumoniae DNA (PCR) (NotDetected) Coronavirus OC43 (PCR) (NotDetected) Coronavirus HKU1 (PCR) (NotDetected) Coronavirus 229E (PCR) (NotDetected) SARS-CoV-2 (PCR) (NotDetected) Coronavirus NL63 (PCR) (NotDetected) Human Metapneumovir PCR (NotDetected) Influenza Type A (PCR) (NotDetected) Influenza Type B (PCR) (NotDetected) M. pneumoniae (PCR) (NotDetected) Parainfluenza 1 (PCR) (NotDetected) Parainfluenza 2 (PCR) (NotDetected) Parainfluenza 3 (PCR) (NotDetected) Parainfluenza 4 (PCR) (NotDetected) RSV (PCR) (NotDetected) Entero/Rhino (PCR) (NotDetected) 03/13/23 03/13/23 Range/Units 20:03 20:03 WBC (4.8-10.8) K/ul RBC (4.20-5.40) M/uL Hgb (12.0-16.0) g/dl Hct (37.0-47.0) % MCV (80.0-100.0) fL MCH (25.0-34.0) pg MCHC (32.0-36.0) g/dL RDW Std Deviation (36.4-46.3) fL RDW Coeff of Donn (11.5-14.5) % Plt Count (130-400) K/uL MPV (9.4-12.4) fL Immature Gran % (Auto) % Neut % (Auto) % Lymph % (Auto) % [place] % (Auto) % Eos % (Auto) % Baso % (Auto) % Neut # (Auto) (1.40-6.50) K/uL Lymph # (Auto) (1.20-3.40) K/uL [place] # (Auto) (0.11-0.59) K/uL Eos # (Auto) (0.00-0.50) K/uL Baso # (Auto) (0.00-0.20) K/uL Immature Gran # (Auto) (0.01-0.20) K/uL RBC Morphology VBG pH 7.29 L (7.36-7.41) VBG pCO2 81 H (38-50) mmHg VBG pO2 33 mmHg VBG HCO3 39 mmol/L VBG O2 Saturation < 60.0 % VBG Base Excess 9.0 mEq/L Sodium (136-145) mmol/L Potassium (3.5-5.1) mmol/L Chloride (98-107) mmol/L Carbon Dioxide (21-32) mmol/L Anion Gap (3-11) BUN (6-23) mg/dl Creatinine (0.6-1.2) mg/dl Est Cr Clr Drug Dosing ml/min Est GFR ( Amer) ml/min Est GFR (Non-Af Amer) ml/min BUN/Creatinine Ratio (10-20) Glucose (70-99(Fasting)) mg/dl Calcium (8.6-10.3) mg/dl Total Bilirubin (0.2-1.0) mg/dl AST (13-39) U/L ALT (7-52) U/L Alkaline Phosphatase (34-104) U/L Troponin I High Sens (0-14) pg/ml B-Natriuretic Peptide (0-100) pg/ml Total Protein (6.0-8.3) gm/dl Albumin (3.4-5.0) gm/dl Globulin (2.5-4.0) gm/dl Albumin/Globulin Ratio (0.9-2) Adenovirus (PCR) Not Detected (NotDetected) B. pertussis DNA (PCR) Not Detected (NotDetected) B.parapertussis DNA PCR Not Detected (NotDetected) C. pneumoniae DNA (PCR) Not Detected (NotDetected) Coronavirus OC43 (PCR) Not Detected (NotDetected) Coronavirus HKU1 (PCR) Not Detected (NotDetected) Coronavirus 229E (PCR) Not Detected (NotDetected) SARS-CoV-2 (PCR) Not Detected (NotDetected) Coronavirus NL63 (PCR) Not Detected (NotDetected) Human Metapneumovir PCR Not Detected (NotDetected) Influenza Type A (PCR) Not Detected (NotDetected) Influenza Type B (PCR) Not Detected (NotDetected) M. pneumoniae (PCR) Not Detected (NotDetected) Parainfluenza 1 (PCR) Not Detected (NotDetected) Parainfluenza 2 (PCR) Not Detected (NotDetected) Parainfluenza 3 (PCR) Not Detected (NotDetected) Parainfluenza 4 (PCR) Not Detected (NotDetected) RSV (PCR) Not Detected (NotDetected) Entero/Rhino (PCR) Not Detected (NotDetected) Administered Medications Discontinued Medications Albuterol (Albuterol 0.5% Neb Soln 2.5 Mg/0.5 Ml Vial) 2.5 mg NEB NOW STA; Protocol Stop: 03/13/23 21:21 Last Admin: 03/13/23 21:31 Dose: 2.5 mg Documented By: REIMGIO Methylprednisolone (Methylprednisolone 125 Mg/2 Ml Vial) 125 mg IV NOW STA Stop: 03/13/23 21:21 Last Admin: 03/13/23 21:31 Dose: 125 mg Documented By: REMIGIO Discharge Plan Visit Data Chief Complaint: Shortness of Breath/Dyspnea Stated Complaint: SOB ED Provider: Adri Loving Discharge Problem: COPD with acute exacerbation Forms Stand Alone Forms: My [facility] [employer] Prescriptions Prescriptions: No Action levothyroxine [Synthroid] 50 mcg Tablet 50 mcg PO DAILY Qty: 0 lorazepam [Ativan] 0.5 mg tablet 0.5 mg PO TID PRN (Reason: Anxiety) escitalopram oxalate [Lexapro] 20 mg tablet 20 mg PO DAILY Qty: 14 0RF mirtazapine 45 mg tablet 45 mg PO HS aripiprazole 10 mg tablet 10 mg PO HS albuterol sulfate 90 mcg/actuation HFA aerosol inhaler 1 puff INHALATION TID PRN (Reason: SOB) doxycycline hyclate 100 mg Capsule 100 mg PO BID Qty: 10 0RF fluticasone propion-salmeterol [Advair Diskus] 100-50 mcg/dose blister with device 1 inh inhalation QAM Qty: 60 1RF prednisone 10 mg tablet 10 mg PO UD Qty: 12 0RF Rx Instructions: Take prednisone 30 mg daily for 2 days, then take 20 mg daily for 2 days, then take 10 mg daily for 2 days and stop cefuroxime axetil 500 mg tablet 500 mg PO BID Qty: 10 0RF Referrals Referrals: Holland Warren MD [Primary Care Provider] -
[2023-03-13 21:40] LABS: Adenovirus PCR Not Detected (NotDetected); Bordetella parapertussis PCR Not Detected (NotDetected); Bordetella pertussis PCR Not Detected (NotDetected); Chlamydia pneumoniae PCR Not Detected (NotDetected); Coronavirus 229E PCR Not Detected (NotDetected); Coronavirus CoV-2 (COVID19)PCR Not Detected (NotDetected); Coronavirus HKU1 PCR Not Detected (NotDetected); Coronavirus NL63 PCR Not Detected (NotDetected); Coronavirus OC43PCR Not Detected (NotDetected); Human Metapneumovirus PCR Not Detected (NotDetected); Influenza A PCR Not Detected (NotDetected); Influenza B PCR Not Detected (NotDetected); Mycoplasma pneumoniae PCR Not Detected (NotDetected); Parainfluenza Virus 1 PCR Not Detected (NotDetected); Parainfluenza Virus 2 PCR Not Detected (NotDetected); Parainfluenza Virus 3 PCR Not Detected (NotDetected); Parainfluenza Virus 4 PCR Not Detected (NotDetected); Respiratory Syncytial VirusPCR Not Detected (NotDetected); Rhinovirus/Enterovirus PCR Not Detected (NotDetected)
--- NOTE | 2023-03-14 01:34 | History & Physical Report ---
Date of Service March 14, 2023 Assessment & Plan (1) COPD with acute exacerbation: Plan: 77-year-old female with past med significant for gout, acquired hypothyroidism, COPD, osteoarthritis, depression, general anxiety disorder, ongoing tobacco abuse presents with shortness of breath started today associated with cough. COPD exacerbation Ongoing tobacco abuse IV Solu-Medrol 40 mg 3 times daily DuoNebs [id number] and as needed P.o. doxycycline We will check procalcitonin levels Closely monitor med telemetry Tobacco abuse Needs counseling Hypothyroidism On Synthyroid Depression On Lexapro and mirtazapine General anxiety disorder On Ativan DVT prophylaxis Lovenox Disposition Med/telemetry Full code History of Present Illness Chief Complaint: Shortness of breath Primary Care Provider: Holland Warren MD 77-year-old female with past med significant for gout, acquired hypothyroidism, COPD, osteoarthritis, depression, general anxiety disorder, ongoing tobacco abuse presents with shortness of breath started today associated with cough. Denies any fevers. No headaches. No blurred visions. Has some runny nose. No sore throat. No chest pain. No nausea no vomiting. No abdominal pain. Normal bowel and bladder movements. Past medical history. As mentioned above Past surgical history. Colonoscopy. Colposcopy. Cholecystectomy. Social history. Smokes 1 pack a day for last 41 years. No alcohol use. No drug use. Family history. Son has fibromyalgia. Father has hypertension ,depression. Mother had ovarian cancer. Brother has hypertension. Sister has hyperthyroidism. Allergies Allergy/AdvReac Type Severity Reaction Status Date / Time Sulfa (Sulfonamide Allergy Intermediate Rash Verified 03/14/23 00:09 Antibiotics) Home Medications Medication Instructions Recorded Confirmed Type levothyroxine 50 mcg tablet 50 mcg PO DAILY #0 tabs 07/11/16 03/14/23 History (Synthroid) escitalopram oxalate 20 mg tablet 20 mg PO DAILY #14 tabs 06/01/19 03/14/23 Rx (Lexapro) albuterol sulfate 90 mcg/actuation 2 puff inhalation Q4 PRN SOB 05/28/22 03/14/23 History aerosol inhaler mirtazapine 45 mg tablet 45 mg PO HS 05/28/22 03/14/23 History furosemide 20 mg tablet 20 mg PO QAM PRN .swelling 03/13/23 03/14/23 History lorazepam 1 mg tablet 1 mg PO TID 03/13/23 03/14/23 History Past Med/Surg History Medical History Anxiety disorder, unspecified COPD with acute exacerbation Depression Hypothyroidism Hypoxia Tobacco use Surgical History History of cholecystectomy History of colonoscopy History of colposcopy Family History Other Depression Diabetes Dyslipidemia Hypertension Social History Smoking Status: Current every day smoker Tobacco Type: Cigarettes Cigarettes Per Day: 30; Do You Dip or Chew Tobacco: No; Hx Alcohol Use: No Hx Substance Use: No Preferred Language: Portuguese Communication Ability: Effective Lube Technician Required: No Beliefs That Will Affect Care: None Current Living Situation: Alone Feels Safe at Home: Yes Assistive Devices: None Review of Systems Review of Systems: All systems reviewed & are unremarkable except as noted in HPI & below Physical Exam Physical Exam: General- not in distress Head- atraumatic Eyes- PERRL. ENT- oropharynx clear Neck- supple, no JVD. Lungs- clear to auscultation mild bilateral rhonchi Heart- regular rhythm; no murmur, no gallop. Abdomen- normal bowel sounds, soft, nontender, no distension. Extremities- no pretibial edema, no erythema seen. Neuro- alert, oriented ; PERRL,; no facial palsy; no dysarthria; moves extremities. Skin- warm & dry Results & Data Results & Data Vital Signs (Past 12 Hours) Vital Signs Temp Pulse Pulse Resp BP BP Pulse Ox 03/13/23 23:00 66 21 118/56 L 95 03/13/23 23:45 68 03/13/23 21:03 03/13/23 21:03 71 21 127/63 96 03/13/23 21:03 03/13/23 19:58 69 03/13/23 19:44 37.2 C 70 18 117/57 L 89 L O2 Del Method O2 Flow Rate 03/13/23 23:00 Nasal Cannula 5 03/13/23 23:45 03/13/23 21:03 Nasal Cannula 03/13/23 21:03 Nasal Cannula 5 03/13/23 21:03 Nasal Cannula 5 03/13/23 19:58 03/13/23 19:44 Nasal Cannula 4 Diagnostic Findings Laboratory Results WBC 13.42 K/ul (4.8-10.8) H 03/13/23 20: RBC 4.85 M/uL (4.20-5.40) 03/13/23 20:03 Hgb 15.6 g/dl (12.0-16.0) 03/13/23 20: Hct 46.7 % (37.0-47.0) 03/13/23 20: MCV 96.3 fL (80.0-100.0) 03/13/23 20: MCH 32.2 pg (25.0-34.0) 03/13/23 20: MCHC 33.4 g/dL (32.0-36.0) 03/13/23 20: RDW Std Deviation 49.3 fL (36.4-46.3) H 03/13/23 20: RDW Coeff of Donn 13.8 % (11.5-14.5) 03/13/23 20: Plt Count 193 K/uL (130-400) 03/13/23 20: MPV 9.5 fL (9.4-12.4) 03/13/23 20: Immature Gran % (Auto) 0.3 % 03/13/23 20: Neut % (Auto) 90.9 % 03/13/23 20: Lymph % (Auto) 2.8 % 03/13/23 20: [place] % (Auto) 5.4 % 03/13/23 20: Eos % (Auto) 0.2 % 03/13/23 20: Baso % (Auto) 0.4 % 03/13/23 20: Neut # (Auto) 12.21 K/uL (1.40-6.50) H 03/13/23 20: Lymph # (Auto) 0.37 K/uL (1.20-3.40) L 03/13/23 20:03 [place] # (Auto) 0.72 K/uL (0.11-0.59) H 03/13/23 20: Eos # (Auto) 0.03 K/uL (0.00-0.50) 03/13/23 20: Baso # (Auto) 0.05 K/uL (0.00-0.20) 03/13/23 20:03 Immature Gran # (Auto) 0.04 K/uL (0.01-0.20) 03/13/23 20:03 RBC Morphology Unremarkable 03/13/23 20:03 VBG pH 7.29 (7.36-7.41) L 03/13/23 20:03 VBG pCO2 81 mmHg (38-50) H 03/13/23 20: VBG pO2 33 mmHg 03/13/23 20: VBG HCO3 39 mmol/L 03/13/23 20: VBG O2 Saturation < 60.0 % 03/13/23 20: VBG Base Excess 9.0 mEq/L 03/13/23 20: Sodium 135 mmol/L (136-145) L 03/13/23 20: Potassium 4.0 mmol/L (3.5-5.1) 03/13/23 20: Chloride 97 mmol/L (98-107) L 03/13/23 20: Carbon Dioxide 35 mmol/L (21-32) H 03/13/23 20:03 Anion Gap 3 (3-11) 03/13/23 20:03 BUN 15 mg/dl (6-23) 03/13/23 20: Creatinine 0.64 mg/dl (0.6-1.2) 03/13/23 20: Est Cr Clr Drug Dosing 69.1 ml/min 03/13/23 20:03 Est GFR ( Amer) 99.8 ml/min 03/13/23 20:03 Est GFR (Non-Af Amer) 86.1 ml/min 03/13/23 20:03 BUN/Creatinine Ratio 23.4 (10-20) H 03/13/23 20: Glucose 96 mg/dl (70-99(Fasting)) 03/13/23 20: Calcium 9.2 mg/dl (8.6-10.3) 03/13/23 20: Total Bilirubin 0.5 mg/dl (0.2-1.0) 03/13/23 20:03 AST 25 U/L (13-39) 03/13/23 20:03 ALT 19 U/L (7-52) 03/13/23 20:03 Alkaline Phosphatase 90 U/L (34-104) 03/13/23 20:03 Troponin I High Sens 7.8 pg/ml (0-14) 03/13/23 20:03 B-Natriuretic Peptide 61 pg/ml (0-100) 03/13/23 20:03 Total Protein 6.6 gm/dl (6.0-8.3) 03/13/23 20:03 Albumin 4.0 gm/dl (3.4-5.0) 03/13/23 20:03 Globulin 2.6 gm/dl (2.5-4.0) 03/13/23 20:03 Albumin/Globulin Ratio 1.5 (0.9-2) 03/13/23 20:03 Adenovirus (PCR) Not Detected (NotDetected) 03/13/23 20:03 B. pertussis DNA (PCR) Not Detected (NotDetected) 03/13/23 20:03 B.parapertussis DNA PCR Not Detected (NotDetected) 03/13/23 20:03 C. pneumoniae DNA (PCR) Not Detected (NotDetected) 03/13/23 20:03 Coronavirus OC43 (PCR) Not Detected (NotDetected) 03/13/23 20:03 Coronavirus HKU1 (PCR) Not Detected (NotDetected) 03/13/23 20:03 Coronavirus 229E (PCR) Not Detected (NotDetected) 03/13/23 20:03 SARS-CoV-2 (PCR) Not Detected (NotDetected) 03/13/23 20:03 Coronavirus NL63 (PCR) Not Detected (NotDetected) 03/13/23 20:03 Human Metapneumovir PCR Not Detected (NotDetected) 03/13/23 20:03 Influenza Type A (PCR) Not Detected (NotDetected) 03/13/23 20:03 Influenza Type B (PCR) Not Detected (NotDetected) 03/13/23 20:03 M. pneumoniae (PCR) Not Detected (NotDetected) 03/13/23 20:03 Parainfluenza 1 (PCR) Not Detected (NotDetected) 03/13/23 20:03 Parainfluenza 2 (PCR) Not Detected (NotDetected) 03/13/23 20:03 Parainfluenza 3 (PCR) Not Detected (NotDetected) 03/13/23 20:03 Parainfluenza 4 (PCR) Not Detected (NotDetected) 03/13/23 20:03 RSV (PCR) Not Detected (NotDetected) 03/13/23 20:03 Entero/Rhino (PCR) Not Detected (NotDetected) 03/13/23 20:03 ECG Additional Comments: ECG. Normal sinus rhythm with rate of 67. T wave inversion seen in leads V1 V2 Code Status & VTE Plan VTE Prophylaxis Plan VTE Prophylaxis will be ordered: Yes
[2023-03-14] MEDS ORDERED: NITROGLYCERIN SL 0.4 MG/TAB TAB SL PRN (04:38)
[2023-03-14] MEDS ORDERED: ACETAMINOPHEN 325 MG TAB PO PRN (04:38)
[2023-03-14] MEDS ORDERED: POLYETHYLENE (MIRALAX) 17 GM PACK PO PRN (04:38)
[2023-03-14] MEDS ORDERED: ALBUT/IPRATROP 3MG/0.5MG NEB 3 ML VIAL NEB PRN (04:38)
[2023-03-14] MEDS ORDERED: FUROSEMIDE 20 MG TAB PO PRN (04:38)
[2023-03-14] MEDS ORDERED: ALBUTEROL HFA 8 GM INHALER INH PRN (04:38)
[2023-03-14] MEDS: ALBUT/IPRATROP 3MG/0.5MG NEB 3 ML VIAL NEB SCH ×4 (06:13→19:43)
[2023-03-14] MEDS: LEVOTHYROXINE SODIUM 50 MCG TABLET PO SCH (06:13)
[2023-03-14 07:19] LABS: Base Excess VBG 6.1 mEq/L; HCO3 VBG 37 mmol/L; PCO2 VBG 88 mmHg (38-50); PO2 VBG 51 mmHg; pH VBG 7.23 (7.36-7.41)
[2023-03-14 07:34] LABS: Hematocrit (blood only) 47.1 % (37.0-47.0); Hemoglobin 15.7 g/dl (12.0-16.0); Mean Corpuscular Hemoglobin 32.1 pg (25.0-34.0); Mean Corpuscular Hgb Conc 33.3 g/dL (32.0-36.0); Mean Corpuscular Volume 96.3 fL (80.0-100.0); Mean Platelet Volume 9.6 fL (9.4-12.4); Platelet Count 182 K/uL (130-400); RDW Coefficient of Variation 13.7 % (11.5-14.5); RDW Standard Deviation 48.9 fL (36.4-46.3); Red Blood Count 4.89 M/uL (4.20-5.40); White Blood Count 8.64 K/ul (4.8-10.8)
[2023-03-14 07:42] LABS: BUN Creatinine Ratio 22.2 (10-20); Creatinine Clr Calc Pharmacy 81.9 ml/min; Est GFR (African American) 105.5 ml/min; Magnesium 1.9 mg/dl (1.7-2.4); Potassium 4.6 mmol/L (3.5-5.1)
--- NOTE | 2023-03-14 07:45 | XRay Report ---
XR chest 1V portable HISTORY: 77 years-old Female Dyspnea acute shortness of breath COMPARISON: 05/29/2022 TECHNIQUE: AP view of the chest FINDINGS: Cardiac silhouette is mildly enlarged. Atherosclerosis of the aorta. Emphysema. Chronic interstitial coarsening without pneumothorax, pleural effusion or airspace consolidation. The bones of the chest a ppear grossly intact. IMPRESSION: Emphysema without acute process. ACT 112: Negative or not required by law. The above report was generated using voice recognition software. It may contain grammatical, syntax o r spelling errors. Electronically signed by: Victor Manuel Dubose M.D. 03/14/2023 7:44 AM
[2023-03-14 08:06] LABS: Basophils # (auto) 0.01 K/uL (0.00-0.20); Basophils % (auto) 0.1 %; Immature Granulocytes # (auto) 0.03 K/uL (0.01-0.20); Immature Granulocytes % (auto) 0.3 %; Lymphocytes # (auto) 0.21 K/uL (1.20-3.40); Lymphocytes % (auto) 2.4 %; Monocytes # (auto) 0.09 K/uL (0.11-0.59); Neutrophils % (auto) 96.2 %
[2023-03-14] MEDS: methylPREDNISolone 40 MG in SYRINGE 0 ML IV SCH ×3 (08:56→23:08)
[2023-03-14] MEDS: ENOXAPARIN INJ 40 MG/0.4 ML SYR SQ SCH (08:56)
[2023-03-14] MEDS: ESCITALOPRAM OXALATE 20 MG TAB PO SCH (08:57)
[2023-03-14] MEDS: LORazepam 1 MG TAB PO SCH ×3 (08:57→20:34)
[2023-03-14] MEDS: DOXYCYCLINE HYCLATE 100 MG CAP PO SCH ×2 (08:57→20:34)
[2023-03-14 13:13] LABS: Base Excess ABG 7.4 mEq/L (-9-1.8); HCO3 ABG 36 mmol/L (19-24); Oxygen Saturation ABG 97.6 % (90-95); PCO2 ABG 68 mmHg (35-46); PO2 ABG 81 mmHg (80-95); pH ABG 7.33 (7.35-7.45)
[2023-03-14 13:20] LABS: Allen Test Pos (Pos)
[2023-03-14] MEDS: MIRTAZAPINE SOLTAB 15 MG PO SCH (20:34)
--- NOTE | 2023-03-14 21:43 | Electrocardiogram Report ---
Test Reason : Blood Pressure : / mmHG Vent. Rate : 067 BPM Atrial Rate : 067 BPM P-R Int : 160 ms QRS Dur : 104 ms QT Int : 420 ms P-R-T Axes : 056 025 048 degrees QTc Int : 443 ms Normal sinus rhythm Low voltage QRS Cannot rule out Anterior infarct , age undetermined Nonspecific T wave abnormality Abnormal ECG When compared with ECG of 30-MAY-2022 05:51, Minimal criteria for Anterior infarct are now Present Confirmed by Gordon Ross ([id number]) on 03/14/2023 9:42:48 PM Referred By: REFERRED SELF Confirmed By:Gordon Ross
[2023-03-15] MEDS: LEVOTHYROXINE SODIUM 50 MCG TABLET PO SCH (05:55)
[2023-03-15 05:58] LABS: Hematocrit (blood only) 46.1 % (37.0-47.0); Hemoglobin 15.2 g/dl (12.0-16.0); Mean Corpuscular Hemoglobin 31.7 pg (25.0-34.0); Mean Corpuscular Volume 96.2 fL (80.0-100.0); Mean Platelet Volume 9.9 fL (9.4-12.4); Platelet Count 165 K/uL (130-400); RDW Coefficient of Variation 13.5 % (11.5-14.5); RDW Standard Deviation 48.3 fL (36.4-46.3); Red Blood Count 4.79 M/uL (4.20-5.40); White Blood Count 7.67 K/ul (4.8-10.8)
[2023-03-15 06:22] LABS: Calcium 9.5 mg/dl (8.6-10.3); Creatinine Clr Calc Pharmacy 87.3 ml/min; Est GFR (African American) 106.8 ml/min; Est GFR (Non-African American) 92.2 ml/min; Magnesium 1.9 mg/dl (1.7-2.4); Phosphorus 3.5 mg/dl (2.5-4.9)
[2023-03-15] MEDS: ALBUT/IPRATROP 3MG/0.5MG NEB 3 ML VIAL NEB SCH ×4 (07:08→19:34)
[2023-03-15] MEDS: methylPREDNISolone 40 MG in SYRINGE 0 ML IV SCH ×2 (08:08→09:36)
[2023-03-15] MEDS: LORazepam 1 MG TAB PO SCH ×3 (08:08→17:14)
[2023-03-15] MEDS: DOXYCYCLINE HYCLATE 100 MG CAP PO SCH ×2 (08:08→20:44)
[2023-03-15] MEDS: ENOXAPARIN INJ 40 MG/0.4 ML SYR SQ SCH (08:10)
[2023-03-15] MEDS: ESCITALOPRAM OXALATE 20 MG TAB PO SCH ×2 (08:10→20:44)
[2023-03-15] MEDS ORDERED: Nursing to Pharmacy Communication SCH ×2 (08:30→08:45)
--- NOTE | 2023-03-15 09:26 | Hospitalist Progress Note ---
Date of Service March 15, 2023 Assessment & Plan (1) COPD with acute exacerbation: Plan: 77-year-old female with past med significant for gout, acquired hypothyroidism, COPD, osteoarthritis, depression, general anxiety disorder, ongoing tobacco abuse presents with shortness of breath started today associated with cough. COPD exacerbation Ongoing tobacco abuse Was started on IV Solu-Medrol 40 mg TID Changed to po prednisone 40mg Continue p.o. doxycycline Wean oxygen Reported she was on 1L/min NC with activity only in the past but has not been on it for a long time Will need 2 step prior to dc Tobacco abuse Smokes about 1ppd Counseled on smoking cessation Reported she used to smoke up to 2ppd but working on cutting down Nicotine patch prescribed Hypothyroidism Continue Synthyroid Depression Continue Lexapro and mirtazapine General anxiety disorder Continue home Ativan. Dosing schedule changed to home schedule Confirmed ativan on PDMP DVT prophylaxis Lovenox Disposition Med/telemetry Full code I spent a total of 60 minutes coordinating, documenting and providing care for this patient excluding time spent in performance of separately billed services Admission and Anticipated Discharge Date Admission Date: March 14, 2023 Subjective Patient seen and examined Reports improved SOB Still have cough, occasionally productive of scant sputum Denied any chest pain, dizziness, fever, chills, nausea, vomiting,abd pain, diarrhea, dysuria, freq, urgency Reports some tremor and anxiety earlier and noted that she usually takes her AM ativan by 7am Physical Exam Constitutional: + well hydrated; no acute distress Eyes: PERRL, conjunctivae normal, anicteric sclerae ENMT: external ear and nose normal, oropharynx normal Respiratory: normal respiratory effort; no respiratory distress Diminished breath sounds No wheeze Cardiovascular: Rate/Rhythm: regular rate and regular rhythm S1 S2 Gastrointestinal (Abdomen): normal bowel sounds, soft, nontender, no hepatosplenomegaly Musculoskeletal: No pedal edema Neurologic: PERRL, EOMI, accommodation nl, no face palsy, no dysarthria Psychiatric: A+Ox3, euthymic affect Results & Data Results & Data Vital Signs (Past 12 Hours) Vital Signs Temp Pulse Pulse Resp BP BP Pulse Ox 03/15/23 07:27 36.5 C 64 20 128/65 100 03/15/23 07:15 59 L 03/15/23 07:08 70 18 97 03/15/23 05:00 03/15/23 05:18 36.3 C L 61 18 146/74 H 98 03/15/23 04:02 61 03/15/23 04:02 03/15/23 02:07 57 L 19 97 03/14/23 23:00 36.1 C L 58 L 18 99/60 L 98 03/14/23 22:39 60 21 95 Pulse Ox O2 Del Method O2 Del Method O2 Flow Rate FiO2 03/15/23 07:27 Nasal Cannula, Oxymask, Nebulizer 03/15/23 07:15 03/15/23 07:08 Nasal Cannula 2 03/15/23 05:00 98 BiPAP 03/15/23 05:18 CPAP 03/15/23 04:02 03/15/23 04:02 Nasal Cannula, BiPAP 3 03/15/23 02:07 40 03/14/23 23:00 CPAP 03/14/23 22:39 40 Laboratory Results Abnormal lab results 03/14/23 03/15/23 03/15/23 Range/Units 12:47 05:15 05:15 RDW Std Deviation 48.3 H (36.4-46.3) fL ABG pH 7.33 L (7.35-7.45) ABG pCO2 68 H (35-46) mmHg ABG HCO3 36 H (19-24) mmol/L ABG O2 Saturation 97.6 H (90-95) % ABG Base Excess 7.4 H (-9-1.8) mEq/L Sodium 133 L (136-145) mmol/L Chloride 96 L (98-107) mmol/L Carbon Dioxide 34 H (21-32) mmol/L Creatinine 0.52 L (0.6-1.2) mg/dl BUN/Creatinine Ratio 25.0 H (10-20) Glucose 137 H (70-99(Fasting)) mg/dl
[2023-03-15] MEDS: NICOTINE 21 MG/24 HR TDSY TD SCH (09:37)
[2023-03-15] MEDS: predniSONE 20 MG TAB PO SCH (10:08)
[2023-03-15] MEDS: MIRTAZAPINE SOLTAB 15 MG PO SCH (20:45)
[2023-03-16] MEDS: LEVOTHYROXINE SODIUM 50 MCG TABLET PO SCH (05:31)
[2023-03-16 06:37] LABS: Hematocrit (blood only) 43.2 % (37.0-47.0); Mean Corpuscular Hemoglobin 32.1 pg (25.0-34.0); Mean Corpuscular Hgb Conc 34.7 g/dL (32.0-36.0); Mean Corpuscular Volume 92.5 fL (80.0-100.0); Mean Platelet Volume 9.9 fL (9.4-12.4); Platelet Count 186 K/uL (130-400); RDW Coefficient of Variation 13.7 % (11.5-14.5); RDW Standard Deviation 47.1 fL (36.4-46.3); Red Blood Count 4.67 M/uL (4.20-5.40); White Blood Count 8.73 K/ul (4.8-10.8)
[2023-03-16] MEDS: ALBUT/IPRATROP 3MG/0.5MG NEB 3 ML VIAL NEB SCH ×4 (07:02→19:52)
[2023-03-16 07:13] LABS: BUN Creatinine Ratio 27.8 (10-20); Calcium 9.3 mg/dl (8.6-10.3); Creatinine Clr Calc Pharmacy 82.5 ml/min; Est GFR (African American) 105.5 ml/min; Magnesium 1.8 mg/dl (1.7-2.4); Phosphorus 2.5 mg/dl (2.5-4.9)
[2023-03-16] MEDS: LORazepam 1 MG TAB PO SCH ×3 (07:31→17:16)
--- NOTE | 2023-03-16 08:12 | Hospitalist Progress Note ---
Date of Service March 16, 2023 Assessment & Plan (1) COPD with acute exacerbation: Plan: 77-year-old female with past med significant for gout, acquired hypothyroidism, COPD, osteoarthritis, depression, general anxiety disorder, ongoing tobacco abuse presents with shortness of breath associated with cough. COPD exacerbation Ongoing tobacco abuse started on IV Solu-Medrol 40 mg TID Changed to po prednisone 40mg Continue p.o. doxycycline Wean oxygen, currently on RA Reported she was on 1L/min NC with activity only in the past but has not been on it for a long time Will need 2 step prior to dc Tobacco abuse Smokes about 1ppd Counseled on smoking cessation Reported she used to smoke up to 2ppd but working on cutting down Nicotine patch prescribed Hypothyroidism Continue Synthroid Depression Continue Lexapro and mirtazapine General anxiety disorder Continue home Ativan. Dosing schedule changed to home schedule Confirmed ativan on PDMP DVT prophylaxis Lovenox Disposition Med/telemetry Full code Admission and Anticipated Discharge Date Admission Date: March 14, 2023 Subjective Patient seen in follow up of COPD exacerbation Reports improved SOB Still have cough, occasionally productive of scant sputum Denied any chest pain, dizziness, fever, chills, nausea, vomiting,abd pain, diarrhea, dysuria, freq, urgency Reports some visual hallucinations w/ prednisone Review of Systems Review of Systems: All systems reviewed & are unremarkable except as noted in Subjective Physical Exam Physical Exam: Constitutional:I WD/WN F in no acut e distress Eyes: PERRL, conjunctiva e normal, anicteri c sclerae ENMT: external ear and n ose normal, oropha rynx normal Respiratory: normal respiratory effort; no respir atory distress Di minished breath so unds No wheeze Cardiovascular:I Rate/Rhythm: regul ar rate and regula r rhythm S1 S2 Gastrointestinal ( Abdomen): normal bowel sound s, soft, nontender Musculoskeletal: No pedal edema Neurologic: PERRL, EOMI, no fa ce palsy, no dysar thria, moves extre mities Psychiatric: A+Ox3, euthymic af fect Results & Data Results & Data Vital Signs (Past 12 Hours) Vital Signs Temp Pulse Pulse Resp BP Pulse Ox Pulse Ox 03/16/23 08:07 36.3 C L 69 18 136/67 92 03/16/23 07:15 60 03/16/23 07:02 68 14 93 03/16/23 05:00 90 10/29/23 03:08 36.5 C 63 16 113/73 90 03/15/23 23:40 73 03/15/23 23:40 03/15/23 23:40 36.5 C 71 18 113/66 98 03/15/23 21:05 20 95 O2 Del Method O2 Del Method FiO2 03/16/23 08:07 Room Air 03/16/23 07:15 03/16/23 07:02 Room Air 03/16/23 05:00 Room Air 03/16/23 03:08 Room Air 03/15/23 23:40 03/15/23 23:40 BiPAP 03/15/23 23:40 BiPAP 03/15/23 21:05 35 Laboratory Results 03/16/23 03/16/23 Range/Units 06:12 06:12 WBC 8.73 (4.8-10.8) K/ul RBC 4.67 (4.20-5.40) M/uL Hgb 15.0 (12.0-16.0) g/dl Hct 43.2 (37.0-47.0) % MCV 92.5 (80.0-100.0) fL MCH 32.1 (25.0-34.0) pg MCHC 34.7 (32.0-36.0) g/dL RDW Std Deviation 47.1 H (36.4-46.3) fL RDW Coeff of Donn 13.7 (11.5-14.5) % Plt Count 186 (130-400) K/uL MPV 9.9 (9.4-12.4) fL Sodium 137 (136-145) mmol/L Potassium 4.0 (3.5-5.1) mmol/L Chloride 100 (98-107) mmol/L Carbon Dioxide 34 H (21-32) mmol/L Anion Gap 3 (3-11) BUN 15 (6-23) mg/dl Creatinine 0.54 L (0.6-1.2) mg/dl Est Cr Clr Drug Dosing 82.5 ml/min Est GFR ( Amer) 105.5 ml/min Est GFR (Non-Af Amer) 91.0 ml/min BUN/Creatinine Ratio 27.8 H (10-20) Glucose 79 (70-99(Fasting)) mg/dl Calcium 9.3 (8.6-10.3) mg/dl Phosphorus 2.5 D (2.5-4.9) mg/dl Magnesium 1.8 (1.7-2.4) mg/dl Medications Administered Current Inpatient Medications Acetaminophen (Acetaminophen 325 Mg Tab) 650 mg PO Q4H PRN PRN Reason: Pain or Fever Stop: 04/13/23 04:37 Albuterol (Albuterol Hfa 8 Gm Inhaler) 2 puffs INH Q4 PRN PRN Reason: Shortness Of Breath Stop: 04/13/23 04:37 Albuterol (Albut/Ipratrop 3mg/0.5mg Neb 3 Ml Vial) 3 ml NEB QIDR ILON; Protocol Stop: 04/13/23 06:59 Last Admin: 03/16/23 07:02 Dose: 3 ml Albuterol (Albut/Ipratrop 3mg/0.5mg Neb 3 Ml Vial) 3 ml NEB Q4R PRN; Protocol PRN Reason: Shortness Of Breath Or Wheezing Stop: 04/13/23 04:37 Doxycycline Hyclate (Doxycycline Hyclate 100 Mg Cap) 100 mg PO BID [facility] Stop: 03/21/23 08:59 Last Admin: 03/15/23 20:44 Dose: 100 mg Enoxaparin Sodium (Enoxaparin Inj 40 Mg/0.4 Ml Syr) 40 mg SQ Q24H [facility] Stop: 04/13/23 08:59 Last Admin: 03/15/23 08:10 Dose: Not Given Escitalopram Oxalate (Escitalopram Oxalate 20 Mg Tab) 20 mg PO HS [facility] Stop: 04/14/23 20:59 Last Admin: 03/15/23 20:44 Dose: 20 mg Furosemide (Furosemide 20 Mg Tab) 20 mg PO QAM PRN PRN Reason: .swelling Stop: 04/13/23 04:37 Levothyroxine Sodium (Levothyroxine Sodium 50 Mcg Tablet) 50 mcg PO DAILYBB [facility] Stop: 04/13/23 06:29 Last Admin: 03/16/23 05:31 Dose: 50 mcg Lorazepam (Lorazepam 1 Mg Tab) 1 mg PO TID@0700,1200,1700 [facility] Stop: 04/14/23 11:59 Last Admin: 03/16/23 07:31 Dose: 1 mg Mirtazapine (Mirtazapine Soltab 15 Mg) 45 mg PO HS [facility] Stop: 04/13/23 20:59 Last Admin: 03/15/23 20:45 Dose: 45 mg Miscellaneous (Remove Nicoderm Patch) 1 each N/A DAILY@0859 [facility] Stop: 04/14/23 08:58 Last Admin: 03/15/23 08:27 Dose: Not Given Nicotine (Nicotine 21 Mg/24 Hr Tdsy) 21 mg TD QAM [facility] Stop: 04/14/23 08:59 Last Admin: 03/15/23 09:37 Dose: 21 mg Nitroglycerin (Nitroglycerin Sl 0.4 Mg/Tab Tab) 0.4 mg SL Q5M PRN PRN Reason: Chest Pain Stop: 04/13/23 04:37 Polyethylene Glycol (Polyethylene (Miralax) 17 Gm Pack) 17 gm PO DAILY PRN PRN Reason: Constipation Stop: 04/13/23 04:37 Prednisone (Prednisone 20 Mg Tab) 40 mg PO DAILY [facility] Stop: 03/19/23 08:59 Last Admin: 03/15/23 10:08 Dose: 40 mg
[2023-03-16] MEDS: predniSONE 20 MG TAB PO SCH (09:05)
[2023-03-16] MEDS: NICOTINE 21 MG/24 HR TDSY TD SCH (09:05)
[2023-03-16] MEDS: DOXYCYCLINE HYCLATE 100 MG CAP PO SCH ×2 (09:05→21:30)
[2023-03-16] MEDS: ENOXAPARIN INJ 40 MG/0.4 ML SYR SQ SCH ×2 (09:06→09:08)
[2023-03-16] MEDS: MIRTAZAPINE SOLTAB 15 MG PO SCH (21:31)
[2023-03-16] MEDS: ESCITALOPRAM OXALATE 20 MG TAB PO SCH (21:31)
[2023-03-17] MEDS: LEVOTHYROXINE SODIUM 50 MCG TABLET PO SCH (05:32)
[2023-03-17 06:17] LABS: Hematocrit (blood only) 47.7 % (37.0-47.0); Mean Corpuscular Hemoglobin 31.7 pg (25.0-34.0); Mean Corpuscular Hgb Conc 33.5 g/dL (32.0-36.0); Mean Corpuscular Volume 94.5 fL (80.0-100.0); Mean Platelet Volume 9.8 fL (9.4-12.4); Platelet Count 202 K/uL (130-400); RDW Coefficient of Variation 14.1 % (11.5-14.5); RDW Standard Deviation 49.1 fL (36.4-46.3); Red Blood Count 5.05 M/uL (4.20-5.40); White Blood Count 7.96 K/ul (4.8-10.8)
[2023-03-17 06:21] LABS: BUN Creatinine Ratio 23.8 (10-20); Calcium 9.4 mg/dl (8.6-10.3); Creatinine Clr Calc Pharmacy 70.8 ml/min; Est GFR (African American) 100.3 ml/min; Est GFR (Non-African American) 86.5 ml/min; Magnesium 1.9 mg/dl (1.7-2.4); Phosphorus 3.4 mg/dl (2.5-4.9)
[2023-03-17] MEDS: ALBUT/IPRATROP 3MG/0.5MG NEB 3 ML VIAL NEB SCH ×3 (06:59→14:58)
[2023-03-17] MEDS: predniSONE 20 MG TAB PO SCH (07:10)
[2023-03-17] MEDS: LORazepam 1 MG TAB PO SCH ×2 (07:10→11:59)
[2023-03-17] MEDS: DOXYCYCLINE HYCLATE 100 MG CAP PO SCH (07:11)
[2023-03-17] MEDS: ENOXAPARIN INJ 40 MG/0.4 ML SYR SQ SCH ×2 (07:12→07:17)
[2023-03-17] MEDS: NICOTINE 21 MG/24 HR TDSY TD SCH (07:13)
--- NOTE | 2023-03-17 14:43 | Discharge Summary ---
Date of Service March 17, 2023 Admission HPI Per Admitting Provider 77-year-old female with past med significant for gout, acquired hypothyroidism, COPD, osteoarthritis, depression, general anxiety disorder, ongoing tobacco abuse presents with shortness of breath started today associated with cough. Denies any fevers. No headaches. No blurred visions. Has some runny nose. No sore throat. No chest pain. No nausea no vomiting. No abdominal pain. Normal bowel and bladder movements. Past medical history. As mentioned above Past surgical history. Colonoscopy. Colposcopy. Cholecystectomy. Social history. Smokes 1 pack a day for last 41 years. No alcohol use. No d rug use. Family history. Son has fibromyalgia. Father has hypertension ,depression. Mother had ovarian cancer. Brother has hypertension. Sister has hyperthyroidism. Admission Exam Per Admitting Provider General- not in distress Head- atraumatic Eyes- PERRL. ENT- oropharynx clear Neck- supple, no JVD. Lungs- clear to auscultation mild bilateral rhonchi Heart- regular rhythm; no murmur, no gallop. Abdomen- normal bowel sounds, soft, nontender, no distension. Extremities- no pretibial edema, no erythema seen. Neuro- alert, oriented ; PERRL,; no facial palsy; no dysarthria; moves extremities. Skin- warm & dry Principal Diagnosis COPD exacerbation Discharge Exam Constitutional: WD/WN F in no acute distress Eyes: PERRL, conjunctivae normal, anicteric sclerae ENMT: external ear and nose normal, oropharynx normal Respiratory: normal respiratory effort; no respiratory distress CTAB No wheezes Cardiovascular: Rate/Rhythm: regular rate and regular rhythm S1 S2 Gastrointestinal (Abdomen): normal bowel sounds, soft, nontender Musculoskeletal: No pedal edema Neurologic: PERRL, EOMI, no face palsy, no dysarthria, moves extremities Psychiatric: A+Ox3, euthymic affect Discharge Data Allergies Allergy/AdvReac Type Severity Reaction Status Date / Time Sulfa (Sulfonamide Allergy Intermediate Rash Verified 03/14/23 00:09 Antibiotics) Consultations 03/13/23 21:31 ED Decision to Admit Stat Hospital Course (1) COPD with acute exacerbation: 77-year-old female with past med significant for gout, acquired hypothyroidism, COPD, osteoarthritis, depression, general anxiety disorder, ongoing tobacco abuse presents with shortness of breath associated with cough. COPD exacerbation Ongoing tobacco abuse Started on IV Solu-Medrol 40 mg TID on admission Changed to po prednisone 40mg Continue p.o. doxycycline Wean oxygen, currently on RA Reported she was on 1L/min NC with activity only in the past but has not been on it for a long time Tobacco abuse Smokes about 1ppd Counseled on smoking cessation Reported she used to smoke up to 2ppd but working on cutting down Nicotine patch prescribed Hypothyroidism Continue Synthroid Depression Continue Lexapro and mirtazapine General anxiety disorder Continue home Ativan. Dosing schedule changed to home schedule Confirmed ativan on PDMP Total Time Total Time Spent Total Time Spent (In Minutes): 40 Discharge Plan Discharge Items Patient Disposition: Home - Self-Care Reason For Visit: COPD EX Discharge Diagnosis: COPD exacerbation Activity: Per Instructions section Non-emergency contact: Primary Care Provider Call non-emergency contact if: you have any medication questions and your symptoms worsen Follow-up/Referrals: Holland Warren MD [Primary Care Provider] - (Date & Time 03/24/2023 1:00 PM Provider Holland Warren MD Department Family Medicine [facility] ) Diet: Heart Healthy Addtl Attending Provider Instructions: Follow up with your primary care doctor, the appointment was scheduled for you for 03/24. Finish antibiotic course with doxycycline. Recommend guaifenesin. Pending Studies at Discharge: No Stand-Alone Forms: My [facility] [employer] Smoking Cessation Medications and DC Order Prescriptions: New doxycycline hyclate 100 mg Capsule 100 mg PO BID 2 Days Qty: 4 0RF guaifenesin 600 mg tablet extended release 12hr 600 mg PO BID 5 Days Qty: 10 0RF Continued levothyroxine [Synthroid] 50 mcg Tablet 50 mcg PO DAILY Qty: 0 escitalopram oxalate [Lexapro] 20 mg tablet 20 mg PO DAILY Qty: 14 0RF mirtazapine 45 mg tablet 45 mg PO HS albuterol sulfate 90 mcg/actuation HFA aerosol inhaler 2 puff INHALATION Q4 PRN (Reason: SOB) furosemide 20 mg tablet 20 mg PO QAM PRN (Reason: .swelling) lorazepam 1 mg tablet 1 mg PO TID Rx Instructions: filled 02/11/23 by Davonte Espinoza from pyschiatry Discharge Orders: Discharge Order (Routine); Ordered 03/17/23 Ordered By: Riky Guevara Admission Data Admit Date/Time: 03/14/23 01:22 Attending Provider: Riky Guevara Admit Provider: Ramos Trinidad Primary Care Provider: Holland Warren Other Providers: Ramos Trinidad ; Riky Guevara ; Asha Blank I.
== END 2023-03-17 15:35 | disposition home or self-care (01) | DRG 192 ==
LOC: ED 18:35 → SUATTDRO 03-14 01:22 → EDINP 03-14 01:22 → 2N 03-14 04:38